=== PATIENT | female | born 1955 | race Caucasian/White ===

== ENCOUNTER → 2023-07-28 08:05 | Outpatient (REF) | payer OTHER, SELFPAY | LOC: RCS 08:05 | PROVIDERS: ATTENDING PHYSICIAN Nurse Practitioner Adult Health | DX: R00.2 Palpitations (principal); R06.09 Other forms of dyspnea | CPT/HCPCS: 93225; 93226 ==

== ENCOUNTER → 2023-08-13 08:55 | Outpatient (REF) | payer OTHER, SELFPAY | LOC: RCS 08:55 | PROVIDERS: ATTENDING PHYSICIAN Nurse Practitioner Adult Health | DX: R00.2 Palpitations (principal); R06.09 Other forms of dyspnea | CPT/HCPCS: 93306 ==

== ENCOUNTER 2024-05-29 02:35 | Inpatient (IN) | payer OTHER, SELFPAY ==
[2024-05-28 18:10] VITALS: BP 106/80
[2024-05-28 18:54] LABS: Hematocrit 28.5 % (37.0-47.0); Hemoglobin 9.8 g/dL (12.0-16.0); Mean Corp Hgb Conc. 34.4 g/dL (33.0-37.0); Mean Corpuscular Hgb 30.6 pg (27.0-31.0); Mean Corpuscular Volume 89.1 fL (81.0-99.0); Red Cell Dist. Width 14.7 % (11.5-14.5); White Blood Cell Count 8.9 10^3/uL (4.8-10.8)
[2024-05-28 19:03] LABS: COVID-19 Antigen Negative (Negative)
[2024-05-28 19:19] LABS: Mean Platelet Volume 10.9 fL (7.4-10.4); Platelet Count 65 10^3/uL (130-400)
[2024-05-28 19:43] LABS: ALT (SGPT) 28 U/L (0-35); AST (SGOT) 28 U/L (14-36); Albumin 3.9 g/dl (3.5-5.0); Alkaline Phosphatase 393 U/L (38-126); Blood Urea Nitrogen 31 mg/dl (7-17); Chloride 102 mmol/L (98-107); Glucose 128 mg/dl (70-99); Potassium 3.6 mmol/L (3.5-5.1); Sodium 133 mmol/L (135-145); Total Bilirubin 2.8 mg/dl (0.2-1.3); Total Protein 6.9 g/dl (6.3-8.2)
[2024-05-28 20:02] LABS: Absolute Neutrophils -Man Diff 6.3 10^3/uL (1.4-6.5); Atypical Lymphocytes 2 %; Band Neutrophils 14 % (0-3); Eosinophils 1 % (0-6); Lymphocytes 17 % (20-51); Metamyelocytes 2 % (-); Monocytes 0 % (2-9); Myelocytes 7 % (-); Platelets Checked Yes; Segmented Neutrophils 57 % (42-75)
[2024-05-28 20:03] LABS: Anisocytosis 1+; Microcytosis 1+; Normal RBC Morphology No; Nucleated Red Blood Cells 1 (-)
[2024-05-28 20:04] LABS: Total Cells Counted 100
[2024-05-28 20:24] VITALS: BMI 34.5
--- NOTE | 2024-05-28 20:30 | ED.GENMED ---
History of Present Illness
General
Chief Complaint: Cold/Flu/URI Symptoms
Source: patient
Exam Limitations: none
Time Seen by Provider: 05/28/24 20:09
Nursing documentation reviewed up to this point in time: agreed with
History of Present Illness
History of Present Illness:
Patient is a 68-year-old female with past medical history of fibromyalgia partial small bowel obstruction hypothyroidism Lupus who presents to the ER for evaluation. Patient started with vomiting on Tuesday, 5 days ago and vomited multiple times
on Tuesday. Since then she has not vomited. She however has had continued intermittent fevers. for the past several days patient has felt just nauseous and has been drinking fluids but then today started with diarrhea and also had a
temperature again of 103.6. She reports that she had several episodes of diarrhea yesterday into today and had some blood in the diarrhea which has improved.
Past History
Past History
ED Past Medical History: Fibromyalgia, Hypothyroidism, Other (Degenerative joint disease, osteoarthritis,, interstitial lung disease, sweet syndrome, migraines, Bowel obstruction,) and Other (Lupus/Sweet's syndrome)
ED Past Surgical History: Appendectomy, Cholecystectomy, Gynecological (Hysterectomy), Orthopedic and Other (Hysterectomy, right knee replacement )
Social History
Tobacco: Former smoker
Alcohol: None
Drug: None
Personal:
Living: with family
Family History
Family History: Negative Diabetes, Hypertension, Early CAD, Asthma or Cancer
Review of Systems
Review of Systems
Allergies reviewed?: Yes
All Other Systems: ROS reviewed and negative except as documented in HPI and ROS
Constitutional: Reports fever
EENT: Reports no symptoms
Respiratory: Reports no symptoms
Cardiac: Reports no symptoms
ABD/GI: Reports nausea, vomiting, diarrhea, bloody stools ((bright red blood in diarrhea) ) and other
Musculoskeletal: Reports no symptoms
Skin: Reports no symptoms
Neurological: Reports no symptoms
Psychiatric: Reports no symptoms
Phy Exam
General Physical Exam
General Presentation: no apparent distress
General age: appears stated age
General Skin: warm and dry
General Habitus: normal
General Mental: alert
General Hydration: appears well hydrated
Pulmonary Exam
Pulmonary Exam: lungs clear and no respiratory distress
Gastrointestinal Exam
Gastrointestinal Exam: soft and other (+ left sided abd tenderness )
Neurological Exam
Neurological Exam: alert and oriented x3
Musculoskeletal Exam
Musculoskeletal Exam: full ROM
Skin Exam
Skin Exam: normal color and warm/dry
Psychiatric Exam
Psychiatric Exam: normal mood/affect
Course
Orders/Labs/Results
Orders:
Orders
05/28/24 18:40
COVID-19 Antigen Urgent
Source: Nasal Swab
Complete Blood Count/With Diff Urgent
Comprehensive Metabolic Panel Urgent
Lipase Urgent
Comment: ADD ON
Manual Differential Urgent
Influenza A+B Rapid Molecular Urgent
TOYIN Source: Nasal Swab
Specimen Description:
05/28/24 20:41
IV Insert/Care/Rem.- Treatment PRN
0.9% Sodium Chloride 1000 ml [Nss] 1,000 ml IV BOLUS
Ondansetron Injectable [Zofran] 4 mg IV NOW STA
05/28/24 22:43
CT Abd/pel Without Iv Or Oral Urgent
Comment:
Reason For Exam: vomiting/diarrhea/fevers
05/29/24 00:17
Azithromycin 500 mg/250 ml [Zithromax Infusion] 500 mg in 250 ml IV NOW
CefTRIAXone [Rocephin] 1,000 mg IV NOW STA
05/29/24 00:46
Sterile Water [Sterile Water For Injection] 10 ml .ROUTE .STK-MED ONE
05/29/24 02:02
Ondansetron Injectable [Zofran] 4 mg IV NOW STA
Oxycodone [Roxicodone] 10 mg PO NOW STA
Oxygen Therapy [O2 Therapy] [RESP] Routine
Nasal Cannula Liter Flow: 2 LPM
Titrate/Wean O2 to maintain O2 sat greater than (%): 95
05/29/24 02:23
Admit/Transfer Patient As Directed
Co-Sign Provider:
Level of Care: Inpatient admission
Assign to:: Medical/Surgical
Physician / Group: hospitalist
Diagnosis: pneumonia
Reason for Hospitalization: pneumonia
Expected length of stay greater than two midnights?: Yes
ELOS- Estimated Length of Stay in days: 2
I certify the patient meets the requirements for IP care: Yes
PRN Pain Medication Management As Directed
May give lesser potent ordered pain med per pt: Yes
preference::
Protocol:: Medication orders for pain may be administered in a
manner that supports deferring to patient preference
when the pt is:
- Requesting an ordered lesser potent pain medication.
Least to most potent pain medications are defined
as: acetaminophen < NSAID < tramadol < opioids
(morphine, oxycodone, hydromorphone).
- Requesting a lesser dose of the same medication IF
ORDERED.
- Requesting a less intrusive route of administration
if both routes are prescribed by the provider (PO <
IV).
05/29/24 02:24
Code Status As Directed
Resuscitation Status: Full Code
05/29/24 02:29
Add On- LAB Stat
Tests Added?: lipase
05/29/24 02:30
CR Chest - 2 Views Urgent
Comment:
Reason For Exam: shortness of breath
05/29/24 03:00
Flush (0.9% Sodium Chloride) [Flush (Nss)] See Dose Instructions IV PER PROTOCOL
05/29/24 03:31
0.9% Sodium Chloride 1000 ml [Nss] 1,000 ml IV 100 mls/hr
Acetaminophen [Tylenol] 650 mg PO Q4HPRN PRN
Bisacodyl [Dulcolax] 10 mg RECTAL [id number] PRN
Docusate W/Senna [Senokot-S] 1 tablet PO BIDPRN PRN
HYDROmorphone [Dilaudid] 0.5 mg IV Q4HPRN PRN
Ipratropium/Albuterol Sulfate [Duoneb] 3 ml INH R Q4HPRN PRN
Ondansetron Injectable [Zofran] 4 mg IV Q6HPRN PRN
Polyethylene Glycol Powder [Miralax] 17 grams PO DAILYPRN PRN
05/29/24 03:31
Activity As Directed
Activity Level: With Assistance
Vital Signs As Directed
Frequency: Per unit guidelines
Pulse Ox/spot Check [RESP] Routine
Quantity: 1
DX Deep Vein Thrombosis Video Routine
05/29/24 05:19
RITA, IgG Reflex to HEp-2 [S] IN AM
Basic Metabolic Panel IN AM
Complete Blood Count/No Diff IN AM
ESR [Erythrocyte Sed Rate] IN AM
Folate IN AM
GGT [GGTP] IN AM
LFT [Rktfp-Sdtt-Wutxuwt] IN AM
Lactic Acid IN AM
Magnesium IN AM
NT-proBNP IN AM
Procalcitonin IN AM
PCT Algorithmm Indication: Respiratory
Venous Blood Gas IN AM
%Oxygen/Room Air: 28
Vitamin B12 IN AM
05/29/24 05:44
Legionella Urinary Antigen Routine
TOYIN Source: Urine
Specimen Description:
Strep pneumoniae Antigen Routine
TOYIN Source: Urine
Specimen Description:
05/29/24 Breakfast
Clear Liquid
At Your Request: Full Participation
Levothyroxine [Synthroid] 75 mcg PO DAILY @ 0600
05/29/24 08:00
Estradiol [Estrace] 1 mg PO DAILY
Multivitamin [Theragran] 1 tablet PO DAILY
Oxycodone [Roxicodone] 10 mg PO Q6H
mycophenolate mofetil 500 mg PO TID
05/29/24 18:00
Enoxaparin Sodium [Lovenox] 40 mg SC QPM
05/30/24 00:00
Azithromycin 500 mg/250 ml [Zithromax Infusion] 500 mg in 250 ml IV Q24H
CefTRIAXone [Rocephin] 1,000 mg IV Q24H
Abnormal Lab Results
05/28/24
18:40
RBC 3.20 L 10^6/uL
(4.20-5.40)
Hgb 9.8 L g/dL
(12.0-16.0)
Hct 28.5 L %
(37.0-47.0)
RDW 14.7 H %
(11.5-14.5)
Plt Count 65 L 10^3/uL
(130-400)
MPV 10.9 H fL
(7.4-10.4)
Band Neutrophils 14 H %
(0-3)
Lymphocytes (Manual) 17 L %
(20-51)
Monocytes (Manual) 0 L %
(2-9)
Sodium 133 L mmol/L
(135-145)
Carbon Dioxide 13 L* mmol/L
(22-30)
BUN 31 H mg/dl
(7-17)
Creatinine 1.2 H mg/dL
(0.6-1.0)
Glucose 128 H mg/dl
(70-99)
Total Bilirubin 2.8 H mg/dl
(0.2-1.3)
Alkaline Phosphatase 393 H U/L
(38-126)
Lipase 19 L U/L
(23-300)
05/28/24 18:40
05/28/24 18:40
Vital Signs
Initial and Last Documented VS:
Initial Vital Signs
Temp Pulse Resp BP Pulse Ox
98.9 F 132 20 106/80 96
05/28/24 18:10 05/28/24 18:10 05/28/24 18:10 05/28/24 18:10 05/28/24 18:10
Last Documented Vital Signs
Temp Pulse Resp BP Pulse Ox
99.1 F 117 34 123/67 95
05/30/24 23:19 05/30/24 23:30 05/30/24 23:30 05/30/24 22:00 05/30/24 23:30
MDM/Problems Addressed
MDM/Problems Addressed:
As documented patient is a 68-year-old female who started on Tuesday 5 days ago with vomiting has intermittent fever since yesterday started with some diarrhea and some mild blood in her stool at got better today.
Patient presents to the ER complaining of feeling fever chills intermittent nausea just not feeling well.
She denies any obvious cough. Her white count is normal her hemoglobin is 9.8.
She has a BUN of 31, creatinine 1.2 and she is mildly dry on exam. Her bilirubin is 2.8 however AST ALT are normal her alk phos is elevated.
With complaints of vague abdominal pain and diarrhea CAT scan was done which shows mild colitis also what looks like multifocal pneumonia. Patient had very minimal cough but does now complain of some pain with deep inspiration
Patient was given fluids here mildly tachycardic will require admission for further evaluation.
*Critical Care Note
Total Time (30-74mins, 75-104mins- exclusive of procedures): Not Applicable
ED Attending Note
-
Portions of this chart may have been created with voice recognition software.� Occasional wrong word or��sound alike� substitutions may have occurred due to the inherent limitations of voice recognition software.
Discharge Plan
Departure
Patient Disposition: Admit
Date of Disposition: 05/29/24
Time of Disposition: 00:29
Admit to: Med/Surg
Admit to doctor: hospitalist
Presentation/result/management discussed w/ accepting MD/DO: Hospitalist
Patient with high blood pressure during this ER visit?: No
Covid-19: Not Applicable
Discharge Problem:
Colitis, Pneumonia, Acute renal insufficiency, Thrombocytopenia
Interventions
Interventions:
*Risk Screen - Suicide Last Done: 05/28/24 20:28
*General Assessment Last Done: 05/28/24 20:28
*Neglect/Abuse Screening Last Done: 05/28/24 20:28
ED- Fall Risk Assessment Last Done: 05/28/24 20:35
*ED COVID-19 Vaccine History Last Done: 05/29/24 07:32
*Nursing Disposition Last Done: 05/29/24 17:35
ED- Pulmonary Assessment Last Done: 05/28/24 20:35
Discharge Date and Time
Discharge Date/Time: 05/29/24 17:35
[2024-05-28 20:33] VITALS: BP 115/67
[2024-05-28] MEDS: NSS 1000 IV (21:25)
[2024-05-28] MEDS: ZOFRAN 4 MG IV (21:25)
[2024-05-28 22:40] LABS: Carbon Dioxide 13 mmol/L (22-30)
[2024-05-29] VITALS (8 sets, daily range): BP systolic 111–146; BP diastolic 61–100; BMI 34.6; BMI 32.5
[2024-05-29] MEDS: ZITHROMAX INFUSION 250 IV (01:07)
[2024-05-29] MEDS: ROCEPHIN 1000 MG IV (01:07)
--- NOTE | 2024-05-29 02:04 | HPS.HSE ---
Family Physician
-
Family Physician: NATHAN Spear
Chief Complaint
-
Patient with pleuritic chest discomfort, shortness of breath and nausea
History of Present Illness
This is a 68-year-old female with past medical history significant for lupus, prior ILD, Sweet syndrome, fibromyalgia, hypothyroid presenting to the emergency department with 5 days of symptoms now with nausea and shortness of breath.
Patient reported acute onset of vomiting on Tuesday morning 5 days ago. She reported mild epigastric discomfort then nonbloody nonbilious emesis x 4. After the emesis resolved she had persistent nausea and she has continued to have nausea
since then. She reports 1 episode of loose stools which was also nonbloody. She states that she has not had loose stools today. She denies any sick contact. Reports family members had no similar symptoms. She has had a temperature and reached
stated that she had a Tmax of 103.6 at home.
She reports chest pain with deep inspiration with associated shortness of breath. She says she has had a prior DVT in the remote past but denies any recent episodes of ankle swelling or calf tenderness. She has no recent travels and denies any
known sick contacts.
Patient on CellCept for lupus. She has been treated with Benlysta in the past but not currently. She reports immunizations up-to-date.
In the emergency department she was afebrile with a Tmax of 99.2, she was satting 94% on room air. She was tachypneic to the high 20s. She was tachycardic to 125. Blood pressure was 129/78. Influenza was negative, COVID test was negative. CBC
shows a white count of 8.9 with 14% bands, hemoglobin was 9.8 and platelet count was low at 65. Sodium 123 potassium 3.6 bicarb was 13 with an anion gap of 18. BUN was 31 and a creatinine of 1.2. Glucose 128. She had slight elevation in total
bilirubin to 2.8 and alk phos of 393. AST and ALT were normal.
A CT of the abdomen pelvis showed small patchy consolidation within the bilateral lower lobes likely reactive multifocal infection. She had trace bilateral effusions at lung bases with mild associated bilateral lower lobe atelectasis. Trace
pericardial fluid. She is status postcholecystectomy no biliary ductal dilation. There was no hydronephrosis or obstructing urinary calculi with normal bladder. The sigmoid colon appears to have some minimal adjacent fat stranding concerning for
colitis. There was liquid content present throughout the colon suggestive of diarrheal gastroenteritis.
Medical History
Past Medical History
Past Medical History: Reports Hypothyroidism and Other (Lupus, fibromyalgia, interstitial lung disease (patient was at 1 point on home oxygen but now off), Sweet syndrome)
Past Surgical History: Reports Cholecystectomy, Gynocological (Total abdominal hysterectomy with bilateral salpingo-oophorectomy), Orthopedic (Knee replacement) and Tonsilectomy
Social History
Tobacco: Former Smoker
Alcohol: None
Drug: None
Personal:
Living: With Family
Employment: Retired
Family History
Family History: Not pertinent
Allergies / Home Medications
Allergies reflects when Allergies were last updated in [email or web address].
Home Medications with original date entered in [email or web address]
Allergy/Medication List:
Allergies
Allergy/AdvReac Type Severity Reaction Status Date / Time
adhesive Allergy Severe Hives Verified 11/28/19 06:32
aspirin Allergy Anaphylaxis Verified 11/28/19 06:32
azathioprine [From Imuran] Allergy Nausea / Verified 11/28/19 06:32
Vomiting
doxycycline Allergy Nausea / Verified 11/28/19 06:32
Vomiting
iodine [Iodine] Allergy Anaphylaxis Verified 11/28/19 06:32
NSAIDS (Non-Steroidal Allergy Anaphylaxis Verified 11/28/19 06:32
Anti-Inflamma
prochlorperazine Allergy gnashing Verified 11/28/19 06:32
teeth
bee stings Allergy Anaphylaxis Uncoded 11/28/19 06:32
Home Medications
levothyroxine 75 mcg tablet 75 mcg PO DAILY Thyroid 08/21/09
estradiol 1 mg tablet 1 mg PO DAILY Hormonal agent 11/15/11
cyclobenzaprine 10 mg tablet 10 mg PO HS PRN tightness 11/28/19
[place] 3 Fish Oil 1,000 mg PO DAILY 05/28/24
cholecalciferol (vitamin D3) 50 mcg (2,000 unit) capsule (Vitamin D3) 50 mcg PO DAILY 05/28/24
multivitamin 1 tab PO DAILY 05/28/24
mycophenolate mofetil 500 mg tablet (CellCept) 1,500 mg PO DAILY 05/28/24
oxycodone-acetaminophen 5 mg-325 mg tablet 2 tab PO Q6 05/28/24
Review of Systems
-
History Source: Patient
Constitutional: Reports Fever
EENT: Reports No Symptoms
Respiratory: Reports Trouble Breathing
Cardiac: Reports Chest Pain
Abdomen/GI: Reports Abdominal Pain, Nausea, Vomiting and Diarrhea
: Reports No Symptoms
Musculoskeletal: Reports No Symptoms
Skin: Reports No Symptoms
Neurological: Reports No Symptoms
Endocrine: Reports No Symptoms
Hematologic/Lymphatic: Reports No Symptoms
Psych: Reports No Symptoms
Physical Exam
Vital Signs
Vital Signs
Temp Pulse Resp BP Pulse Ox
99.2 F 112 24 129/78 94
05/29/24 00:07 05/29/24 01:15 05/29/24 01:04 05/29/24 00:18 05/29/24 00:45
Physical Exam
General: Well Developed, Well Nourished and Appears in Distress
HEENT: NormoCephalic, Anicteric, Atraumatic and PERRLA
Respiratory: Rales (Faint dry rales at the bases bilaterally. Rapid but shallow breathing); No Accessory Resp Muscle Use
Cardiac: S1/S2 and Tachycardia
Breast: Deferred by me
GI: Soft, Non Tender, Non Distended and Normal Bowel Sounds
Rectal: Deferred by Provider
Genito-urinary: Deferred by me
Musculoskeletal: No Clubbing, No Cyanosis and No Edema
Skin: Warm and Dry; No Rash
Neuro: AO x 3 and Nonfocal/grossly intact
Hematologic/Lymphatic: No Lymphadenopathy
Psych: Calm
Laboratory Results
-
05/28/24 18:40
05/28/24 18:40
Laboratory Results
Total Bilirubin 2.8 mg/dl (0.2-1.3) H 05/28/24 18:40
AST 28 U/L (14-36) 05/28/24 18:40
ALT 28 U/L (0-35) 05/28/24 18:40
Alkaline Phosphatase 393 U/L (38-126) H 05/28/24 18:40
Data Reviewed
-
CT Scan: Report Reviewed by me
Lab Data: Labs Reviewed by me
Old Records: Reviewed
Impression/Plan
-
IMPRESSION:
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
breath with mild O2 requirement is satting 94% on room air, GHAZAL has no cough but reports pleuritic chest pain and some difficulty breathing.
CT scan of the abdomen pelvis revealed patchy consolidation within the bilateral lower lobes related to multifocal infection unlikely, trace bilateral effusions also noted. The abdomen had no significant findings but was consistent with
gastroenteritis. Labs are notable for bandemia to 14%, bicarb of 13 with combination anion gap and non-anion gap metabolic acidosis and mild DAYRON. There is elevated total bilirubin and alk phos with normal LFTs.
PLAN:
1. Shortness of breath -shortness of breath, pleuritic chest discomfort, bilateral lower lobe patchy opacities all consistent with community-acquired pneumonia. Patient however does have interstitial lung disease and this may be elevation of
flareup of interstitial lung disease. Given symptoms occurred after onset of gastroenteritis this could be Legionella versus aspiration as well.
- admit to med/surg for now
- oxygen to keep sat > 94% and for comfort
- check procal, legionella urinary ag and streptococcal ag
- check d-dimer and bnp given bilateral effusions
- continue azithromycin with ceftriaxone for now
- check chest xray
- blood cultures if spike
- pending xray, blood gas and clinical status, may consult pulm
2. Gastroenteritis - Episode of vomiting then diarrhea, now with nausea
- supportive measures with antiemetics
- pain control
- IV fluids
3. Abnormal liver enzymes - Elevated tbili and alkpho with normal transaminases suggestive of cholestatic pattern. s/p seven, no biliary dilation.
- check ggt
- trend lfts for now
- legionella ag as abov e
4. Lupus - No skin rash
- check esr, thee
- urine sediments and protein
- continue cellcept 500 q 8 per patient home regimen
5. Thrombocytopenia - Isolated thrombocytopenia since 2020. Possibly due to acute viral infection
- check b12/folate
- trend platelet
- if further drop consult hematology
6. Low bicarb - Suspect anion gap + non gap acidosis but cannot rule out a resp alk component
- IV fluids with NS for now
- check lactate and vbg
- supplemental oxygen
DVT PPX - lovenox sq
Code status - Full Code
[2024-05-29] MEDS: ZOFRAN 4 MG IV ×2 (02:09→12:06)
[2024-05-29] MEDS: ROXICODONE 10 MG PO ×4 (02:14→20:13)
[2024-05-29 03:19] LABS: Lipase 19 U/L (23-300)
[2024-05-29] MEDS: NSS 1000 IV ×2 (03:58→14:38)
[2024-05-29 05:32] LABS: Venous Blood Gas B.E. -3.2 mmol/L (-4 to +4); Venous Blood Gas HCO3 20.2 mmol/L (22-27); Venous Blood Gas O2 Sat % 99.7 %; Venous Blood Gas pCO2 29 mmHg (35-48); Venous Blood Gas pH 7.45 (7.32-7.43); Venous Blood Gas pO2 171 mmHg (30-50)
[2024-05-29 06:05] LABS: Lactic Acid 1.5 mmol/L (0.7-2.0)
[2024-05-29 06:11] LABS: Hematocrit 24.7 % (37.0-47.0); Hemoglobin 8.2 g/dL (12.0-16.0); Mean Corp Hgb Conc. 33.2 g/dL (33.0-37.0); Mean Corpuscular Hgb 30.4 pg (27.0-31.0); Mean Corpuscular Volume 91.5 fL (81.0-99.0); Mean Platelet Volume 10.8 fL (7.4-10.4); Platelet Count 60 10^3/uL (130-400); Red Cell Dist. Width 15.1 % (11.5-14.5); White Blood Cell Count 9.7 10^3/uL (4.8-10.8)
[2024-05-29 06:12] LABS: NT-proBNP 1660 pg/ml
[2024-05-29 06:13] LABS: ALT (SGPT) 21 U/L (0-35); AST (SGOT) 20 U/L (14-36); Albumin 2.9 g/dl (3.5-5.0); Alkaline Phosphatase 314 U/L (38-126); Blood Urea Nitrogen 29 mg/dl (7-17); Calcium 7.9 mg/dl (8.4-10.2); Carbon Dioxide 19 mmol/L (22-30); Chloride 105 mmol/L (98-107); Direct Bilirubin 1.1 mg/dl (0.0-0.4); Estimated Creatinine Clearance 51 ml/min; GGTP 518 U/L (12-43); Glucose 129 mg/dl (70-99); Magnesium 2.2 mg/dl (1.6-2.3); Potassium 3.5 mmol/L (3.5-5.1); Sodium 136 mmol/L (135-145); Total Bilirubin 1.9 mg/dl (0.2-1.3); Total Protein 5.5 g/dl (6.3-8.2); eGFR > 60.00
[2024-05-29] MEDS: SYNTHROID 75 MCG PO (06:14)
[2024-05-29 06:55] LABS: Procalcitonin 16.94 ng/ml (0.0-0.25)
[2024-05-29 07:09] LABS: Folate 17.7 ng/ml (2.76-20); Vitamin B12 > 1000 pg/ml (239-931)
[2024-05-29 07:19] LABS: Erythrocyte Sed Rate 115 mm/hour (0-20)
[2024-05-29] MEDS: TYLENOL 650 MG PO ×3 (07:26→20:13)
[2024-05-29] MEDS: THERAGRAN 1 TABLET PO (07:27)
[2024-05-29] MEDS: CELLCEPT 500 MG PO ×3 (09:15→21:55)
[2024-05-29] MEDS: ESTRACE 1 MG PO (09:15)
[2024-05-29] MEDS: DILAUDID 0.5 MG IV (12:11)
--- NOTE | 2024-05-29 12:16 | W.PN.UPDATE ---
Update Note
Progress Note Update
Seen and admitted by Dr. Gonzalez this morning.
Patient presents with GI symptoms of nausea multiple episodes of vomiting, abdominal pain and few small loose stool since Tuesday. CT of the abdomen pelvis shows mild bowel wall thickening and adjacent mesenteric inflammatory changes in the
rectosigmoid area consistent with colitis. She says she had her routine colonoscopy many years ago. No prior history of colitis. She is immune compromised with the use of CellCept but no prior opportunistic infections.
Today she continues to be nauseous and complains of abdominal pain points to more epigastric area. She feels abdomen is distended.
Abdomen is mildly distended, soft with decreased bowel movements. She is tender in the epigastric area but also in other quadrants.
Continue with antibiotics for colitis-ceftriaxone. Add Flagyl. Check stool for WBC, C. difficile and culture.
She also felt associate shortness of breath. Has some cough. Denies aspiration during her emesis episodes. 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 Denies much of cough.
Chest is clear without wheeze or crackles. Abdomen pelvis CT pics of the lower bases to have patchy infiltrates and also more nodular infiltrates. Dedicated chest x-ray pending.
Continue ceftriaxone and Zithromax for possible pneumonia. If no improvement consider chest CT�ID consult.
She meets the criteria for sepsis. Lactic acid normal. Blood pressure stable.
Discussed with RN.
[2024-05-29] MEDS: FLAGYL 500 MG 100 IV ×2 (14:38→21:56)
[2024-05-29] MEDS: LOVENOX 40 MG SC (17:44)
--- NOTE | 2024-05-29 18:32 | PTCARENOTE ---
Received pt from ED in bed. AAO x3 able to make needs known. Pt on 2L O2. Continues on Enhanced precautions, no BM since being on unit. Call vang within reach.
[2024-05-29] MEDS: TYLENOL 325 MG PO (22:17)
[2024-05-30] VITALS (8 sets, daily range): BP systolic 112–166; BP diastolic 57–89; BMI 34.8
[2024-05-30] MEDS: NSS 1000 IV (00:31)
[2024-05-30] MEDS: ROCEPHIN 1000 MG IV (00:35)
[2024-05-30] MEDS: ZITHROMAX INFUSION 250 IV (00:35)
[2024-05-30] MEDS: STERILE WATER FOR INJECTION 10 ML IV ×2 (00:36→17:25)
[2024-05-30] MEDS: ROXICODONE PO ×2 (03:12→23:49)
--- NOTE | 2024-05-30 03:14 | DOWNTIME ---
There was a [employer] Client Copy Writer Downtime on 05/30/2024 from 0100 to 05/30/2023 at 0235 . Downtime documentation of patient's care, including medication administrations, has been reconciled in the electronic record per guidelines. Refer to the
patient's paper chart under the miscellaneous tab to see printed paper medication records and downtime forms.
--- NOTE | 2024-05-30 05:34 | PTCARENOTE ---
At 20:05 patient had a fever of 102.3 F and heart rate of 139. This RN administered PRN Tylenol. At 21:28 she had a fever of 101.4 F and HR of 127. AIRCONDITIONING ENGINEER Bette Savage notified. This RN administered another Tylenol, removed patient's socks, and left
her with one sheet. Temp decreased to 98 F. Will continue to monitor.
--- NOTE | 2024-05-30 05:42 | PTCARENOTE ---
Patient complaining of shortness of breath. Auscultated some secretions in her upper lobes, patient states she 'cannot clear with coughing.' Pulse ox was 96% APPARATUS ENGINEERING TECHNOLOGIST Bette Savage notified. Patient instructed to deep breathe and cough, Acapella given
and education provided by this RN. Will continue to monitor.
[2024-05-30] MEDS: SYNTHROID 75 MCG PO (06:07)
[2024-05-30] MEDS: FLAGYL 500 MG 100 IV ×2 (06:08→15:32)
[2024-05-30 07:52] LABS: Hematocrit 24.5 % (37.0-47.0); Hemoglobin 8.3 g/dL (12.0-16.0); Mean Corp Hgb Conc. 33.9 g/dL (33.0-37.0); Mean Corpuscular Hgb 30.3 pg (27.0-31.0); Mean Corpuscular Volume 89.4 fL (81.0-99.0); Red Blood Cell Count 2.74 10^6/uL (4.20-5.40); Red Cell Dist. Width 15.2 % (11.5-14.5); White Blood Cell Count 9.7 10^3/uL (4.8-10.8)
[2024-05-30 08:16] LABS: ALT (SGPT) 21 U/L (0-35); AST (SGOT) 30 U/L (14-36); Albumin 2.8 g/dl (3.5-5.0); Alkaline Phosphatase 374 U/L (38-126); Blood Urea Nitrogen 18 mg/dl (7-17); Calcium 8.3 mg/dl (8.4-10.2); Carbon Dioxide 15 mmol/L (22-30); Chloride 107 mmol/L (98-107); Estimated Creatinine Clearance 71 ml/min; Glucose 122 mg/dl (70-99); Potassium 3.4 mmol/L (3.5-5.1); Sodium 137 mmol/L (135-145); Total Bilirubin 4.4 mg/dl (0.2-1.3); Total Protein 5.5 g/dl (6.3-8.2); eGFR > 60.00
[2024-05-30 08:52] LABS: Platelet Count 60 10^3/uL (130-400)
[2024-05-30] MEDS: ROXICODONE 10 MG PO ×2 (09:12→15:32)
[2024-05-30] MEDS: THERAGRAN 1 TABLET PO (09:12)
[2024-05-30] MEDS: CELLCEPT 500 MG PO (09:12)
[2024-05-30] MEDS: ESTRACE 1 MG PO (09:12)
[2024-05-30] MEDS: MUCINEX 600 MG PO (09:12)
[2024-05-30] MEDS: TYLENOL 650 MG PO (09:20)
[2024-05-30] MEDS: CARDIZEM 30 MG PO (10:12)
[2024-05-30] MEDS: NSS IV (11:33)
--- NOTE | 2024-05-30 11:33 | CM ---
Patient seen at bedside with patient in [facility]. Patient states they live in a one story home with a basement. Patient has no DME at home and has not needed home O2 previously. Patient PCP is Dr. Edmondson and she uses the [facility]
[place] [facility]. Patient plan uncertain at this time. CM will continue to follow for discharge planning needs.
Plan; home with VN vs SNF pending medical treatment plan and PT/OT recommendations.
--- NOTE | 2024-05-30 13:42 | W.PN.HOSP.TC ---
Today's Communication/Plan
-
Urgent chest x-ray
Transfer to telemetry
Consult ID
Assessment / Plan
Assessment / Plan
IMPRESSION:
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
breath with mild O2 requirement is satting 94% on room air, GHAZAL has no cough but reports pleuritic chest pain and some difficulty breathing.
CT scan of the abdomen pelvis revealed patchy consolidation within the bilateral lower lobes related to multifocal infection unlikely, trace bilateral effusions also noted. The abdomen had no significant findings but was consistent with
gastroenteritis. Labs are notable for bandemia to 14%, bicarb of 13 with combination anion gap and non-anion gap metabolic acidosis and mild DAYRON. There is elevated total bilirubin and alk phos with normal LFTs.
PLAN:
#Sepsis-suspected GI source, rule out pulmonary
Improved fever curve. Blood pressure stable so far. Lactic acid was normal on admission.
Continue with treatment of infectious source and supportive treatments.
#Acute colitis-patient presented with GI symptoms including nausea abdominal pain and not much diarrhea. She has CT evidence of colitis involving the rectosigmoid colon. A complication of abscess or perforation. Patient is immunosuppressed. C.
difficile is negative so far. Stool culture and WBC are pending. Continue with ceftriaxone and Flagyl.
#Shortness of breath and associated acute hypoxic respiratory insufficiency.
- She is stable on 2 L of oxygen.
-Today she is more crackly and now actively bronchospastic
-SCDs chest x-ray was showing no acute cardiopulmonary disease. Chest CT picked up bilateral patchy GGO in the lung bases.
-Patient has a history of ILD
-Today's change in respiratory status is concerning for either fluid buildup or developing ARDS.
-Hold further fluids, to obtain a chest x-ray. Repeat BNP. Check troponins.
#Sinus tachycardia-follow on telemetry
#Abnormal liver enzymes - Elevated tbili and alkpho with normal transaminases suggestive of cholestatic pattern. s/p seven, no biliary dilation.
- ggt is up.
- trend lfts for now
- legionella ag negative.
-Check ultrasound of the abdomen to look at the biliary system.
#Lupus - No skin rash
-Hold CellCept
#Thrombocytopenia - Isolated thrombocytopenia since 2020. Possibly due to acute viral infection
- trend platelet
- if further drop consult hematology
Hypokalemia-replete
#DAYRON suspect prerenal. Improved creatinine from 1.2-0.7 send IV fluid support.
#Metabolic acidosis-
-Elevated anion gap on admission noted may be related to DAYRON.
-Improved anion gap and bicarb.
-ABG showed compensated metabolic alkalosis with pH of 7.45.
-Continue to follow
Discussed with family at bedside
Discussed with RN
DVT PPX - lovenox sq
Code status - Full Code
Total time spent on today's encounter was 52 minutes which included time spent in counseling the patient/family regarding diagnosis and treatment plan as listed above, goals of care, and symptom management. Case was discussed with nursing staff,
specialists, and care coordinators/case management. All labs and imaging personally reviewed by me. Remainder the time spent in detailed review of previous records, lab data, imaging, and other medical provider documentation.
Anticipated Discharge: > 48 hours
Subjective/Interval History
-
Date of Service: May 30, 2024
Today patient states her abdomen abdomen is more supple and less painful. Had a small amount of bowel movement. No vomiting. Denies particularly nauseous but appetite is poor. Taking some clear liquids.
Her fever curve is improved today.
She has had a cough. She feels congested in her chest. Audible sounds heard. Denies much shortness of breath at rest. She is only requiring 2 L of oxygen.
Denies any chest pain.
Objective Data
-
Labs:
Laboratory Results
05/30/24
07:17
WBC 9.7
Hgb 8.3 L
Hct 24.5 L
Plt Count 60 L
Sodium 137
Potassium 3.4 L
Chloride 107
Carbon Dioxide 15 L
BUN 18 H
Creatinine 0.7
Glucose 122 H
Calcium 8.3 L
Total Bilirubin 4.4 H D
AST 30
ALT 21
Alkaline Phosphatase 374 H
Vital Signs:
Vital Signs
Temp Pulse Resp BP Pulse Ox
98.5 F 117 22 141/71 94
05/30/24 11:24 05/30/24 11:24 05/30/24 11:24 05/30/24 07:45 05/30/24 11:24
I&O
05/29/24 05/30/24 05/31/24
06:59 06:59 06:59
Intake Total 480 / 480
Balance 480 / 480
Review of Systems
-
Constitutional: Reports Fever; Denies Chills
EENT: Denies Sore Throat
Respiratory: Reports Cough and Trouble Breathing
Cardiac: Denies Chest Pain
Neuro: Denies Dizzy
Physical Exam
-
General: No Apparent Distress
HEENT: Moist Mucous Membranes
Respiratory: Wheezes, Crackles, Non Labored Respirations and Other (Audible breath sounds); Negative Accessory Resp Muscle Use
Cardiac: Regular Rhythm, S1/S2 and Tachycardic; Negative JVD
GI: Soft, Nondistended, Normal Bowel Sounds and Tender ( four-quadrant but no rebound guarding or rigidity.)
Musculoskeletal: No Edema
Neuro: AO x 3
Psych: Calm; Negative Confused
Data Reviewed
-
Labs: Labs Reviewed by me
[2024-05-30 14:30] LABS: Lipase 139 U/L (23-300)
--- NOTE | 2024-05-30 15:04 | CON.ID ---
Consultation
-
Date/Time Consultation Requested: May 30, 2024 1333
Date/Time Consultation Performed: May 30, 2024 1500
Requesting Provider: Dr. Mane Panda
Performing Provider: Dr. Aimee Moreno
Reason for Consultation: Severe sepsis
Chief Complaint / Past History
Chief Complaint
SOB, pleuritic chest pain
History of Present Illness
68-year-old female with history of SLE on mycophenolate, history of interstitial lung disease, Sweet syndrome, SBO who presented to the hospital on May 28 due to shortness of breath and persistent nausea. She had episode of vomiting 5 days
prior to presentation. Had loose bowel movements. She did not develop persistent nausea. She also developed shortness of breath, chest pain with deep inspiration, no cough. Temperature at home over 103 and therefore she came to the hospital.
Temperature was 102.3 on May 29. White count normal with 14% bands. Thrombocytopenic. COVID-negative. Influenza negative. Initial chest x-ray negative. CAT scan of the abdomen pelvis showed mild bowel wall thickening at the sigmoid and
rectum. Patient is on ceftriaxone, azithromycin, and metronidazole. However her respiratory status worsened today. Patient reports now coughing with minimal sputum. She is very short of breath. She also sounds congested. She reports positive
rhinorrhea. Positive headache from the coughing. Had sore throat now resolved. Had abdominal pain. Diarrhea better. No urine symptoms. No aspiration history. No travel history. She lives with her who is well.
Past History
Additional Past Medical History:
SLE on mycophenolate
History of interstitial lung disease
History of Sweet syndrome
Hypothyroidism
Fibromyalgia
hx SBO x2
Cholecystectomy
HODAN/BSO
Right Total knee replacement
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
implantation and removal of intrathecal pain pump of the right transverse paramedian incision)
Allergy History:
adhesive Allergy (Severe, Verified 11/28/19 06:32)
Hives
aspirin Allergy (Verified 11/28/19 06:32)
Anaphylaxis
azathioprine [From Imuran] Allergy (Verified 11/28/19 06:32)
Nausea / Vomiting
doxycycline Allergy (Verified 11/28/19 06:32)
Nausea / Vomiting
iodine [Iodine] Allergy (Verified 11/28/19 06:32)
Anaphylaxis
NSAIDS (Non-Steroidal Anti-Inflamma Allergy (Verified 11/28/19 06:32)
Anaphylaxis
prochlorperazine Allergy (Verified 11/28/19 06:32)
gnashing teeth
bee stings Allergy (Uncoded 11/28/19 06:32)
Anaphylaxis
Medications Reviewed: Yes
Current Antibiotics:
Ceftriaxone d3
azithromycin d3
metronidazole d2
Social History
Tobacco: Former Smoker
Alcohol: None
Drug: None
Personal:
Living: With Family
Family History
Family History: Not Pertinent
Review of Systems
Review of Systems
General: Fever, Chills and Change in Appetite
HEENT: Sinus Problems
Cardiovascular: Chest Pain (with deep breathing)
Respiratory: Dyspnea, Cough and Sputum Production
Gasteroenterology: Nausea and Diarrhea (resolving); Negative Vomiting
Genital / Urological: Negative Dysuria or Flank Pain
Endocrine: Weakness
Skin / Hair / Nails: Negative Rash
Neurological: Negative Dizziness
All systems: All other systems were reviewed and were negative
Vital Signs
Temp Pulse Resp BP Pulse Ox
98.5 F 117 22 141/71 94
05/30/24 11:24 05/30/24 11:24 05/30/24 11:24 05/30/24 07:45 05/30/24 11:24
Selected Entries
05/29/24
20:05
Temp max 102.3 F H
Physical Exam
Physical Exam
Constitutional: Acutely Ill
Head: Other (No frontal or max or sinus tenderness.)
Eyes: No Conjunctival Hemorrhage and Sclera Anicteric
Oral: No Thrush
Cardiovascular: Regular Rate and S1/S2
Pulmonary: Rales (crackles bilaterally), Rhonchi and Other (labored breathing. + chest congestion.)
Gastrointestinal: Soft, Non Tender, Non Distended and Decreased Bowel Sounds
Genito-Urinary: Negative CVA Tenderness
Extremities: Negative Edema
Neurological: AO x 3; Negative Meningeal Signs
Lab / Diagnostic Study Results
05/30/24 07:17
05/30/24 07:17
Total Counted 100 05/28/24 18:40
Abs Neuts (Manual) 6.3 10^3/uL (1.4-6.5) 05/28/24 18:40
Segmented Neutrophils 57 % (42-75) 05/28/24 18:40
Band Neutrophils 14 % (0-3) H 05/28/24 18:40
Lymphocytes (Manual) 17 % (20-51) L 05/28/24 18:40
Eosinophils (Manual) 1 % (0-6) 05/28/24 18:40
ESR 115 mm/hour (0-20) H 05/29/24 05:19
Lactic Acid 1.5 mmol/L (0.7-2.0) 05/29/24 05:19
Procalcitonin 16.94 ng/ml (0.0-0.25) H* 05/29/24 05:19
Microbiology Results
Micro:
05/29/24 12:59 Blood Culture - Preliminary
Blood/Venous No Growth in 24 hours- Final report to follow
05/29/24 12:59 Blood Culture - Preliminary
Blood/Venous No Growth in 24 hours- Final report to follow
05/29/24 09:32 C. difficile GDH Antigen & Toxins - Final
Feces/Stool Negative for toxigenic C.difficile
05/29/24 09:32 Stool Leukocytes - Pending
Feces/Stool
05/30/24 09:32 Salmonella/Shigella Culture - Pending
Feces/Stool Campylobacter Culture - Pending
Shiga Toxin Test - Pending
05/29/24 05:44 Legionella Urinary Antigen - Final
Urine Negative for Legionella pneumophila Serogroup 1 antigen.
A negative result does not rule out the possiblity of
Legionella infection due to other serogroups or species of
Legionella. Clinical correlation is recommended.
Streptococcus pneumoniae Antigen (M - Final
Negative for Streptococcus pneumoniae antigen.
A negative result does not exclude infection with
Streptococcus pneumoniae. Clinical correlation is
recommended.
05/28/24 18:40 Influenza Types A & B (DARLEEN) - Final
Nasal Swab Negative for Influenza A & B, NAAT
Negative results must be combined with clinical observations
and patient history.
Nucleic Acid Amplification test (NAAT)performed on the
[employer]gle platform.
05/28/24 CT a/p: Mild bowel wall thickening sigmoid , rectum and adjacent mesenteric inflammatory change adjacent to the rectosigmoid colon, consistent with colitis. Colitis is likely infectious or inflammatory. Patchy groundglass opacity at each
lung base. Nodular opacities in each lung base measuring up to 1.1 cm in diameter, as detailed above. Findings may be infectious or related to subsegmental atelectasis, however follow-up chest CT is suggested in 3-6 months to exclude pulmonary
nodules. Mild fatty infiltration of liver.
05/29/24 CXR: No active cardiopulmonary disease.
05/30/24 CXR: There is new hazy pleural-parenchymal airspace disease in the lower right lung which I favor is right middle lobe pneumonia, however, there may be a component of pleural fluid along the fissure on the right.
Assessment / Plan
# Immunocompromise host: SLE on mycophenolate
# Fever
# Acute respiratory distress
# Suspect PNA
- Repeat CXR today mild hazy opacity RML
- Agree with Chest CTA
-Check sputum cx
- In the meantime, broaden ceftriaxone to cefepime.
- Continue azithromycin for now to cover for legionella/mycoplasma
- DC metronidazole - doubt aspiration
- Follow temps, 02 status.
# Gastroenteritis
- CT a/p mild bowel wall thickening sigmoid, rectum
- C. diff neg.
- Add norovirus PCR
- Stool cx pending.
-ABD US pending
- Cefepime as above.
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
SLE on mycophenolate
History of interstitial lung disease
History of Sweet syndrome
Hypothyroidism
Fibromyalgia
hx SBO x2
Cholecystectomy
HODAN/BSO
Right Total knee replacement
Care Review
Plan reviewed with: Physician (Dr. Panda)
[2024-05-30] MEDS: KCL 40 MEQ PO (15:32)
[2024-05-30] MEDS: ROBITUSSIN DM 5 ML PO ×2 (15:39→19:38)
[2024-05-30] MEDS: TESSALON PERLES 100 MG PO (15:40)
[2024-05-30] MEDS: DUONEB 3 ML INH (16:23)
[2024-05-30] MEDS: MAXIPIME 2000 MG IV (17:24)
[2024-05-30] MEDS: LOVENOX 40 MG SC (17:26)
[2024-05-30 17:45] LABS: Troponin I 0.019 ng/ml
[2024-05-30 17:51] LABS: NT-proBNP 1640 pg/ml
--- NOTE | 2024-05-30 18:15 | PTCARENOTE ---
made aware of pt's respiratory distress with increased RR, need for 4Lo O2 vs 2L. 92-93% 4L O2. Audible wheezing, non productive cough. CXR, chest CT, and transfer to IMU ordered. CT of chest ordered as well, with pre meds to be given one hour
prior. Report given to Job GERMAN in IMU. Son Stu made aware of patient being moved to room 3343. Belongings taken to room. Pt assist x2 on stretcher to IMU.
--- NOTE | 2024-05-30 18:27 | PTCARENOTE ---
Pt brought to IMU on stretcher lungs are coarse. AAOx3 on [address] scan of chest. Pt needs to be pre med after change of shift and then call CT Scan
--- NOTE | 2024-05-30 19:18 | PTCARENOTE ---
TT NATHAN Neri; patient was found to be tachypneic RR 30-40s, tachycardia HR 130s and having increased work of breathing after receiving RN report. Audible crackles in throat and with breathing. RT Chandana TT and at bedside. ABG done. Robitussin
provided, 1mg morphine and IV Ofirmev provided per the JUN. CV/CVN CV TSC SYSTEM OPERATOR at bedside to assess. CXR ordered and obtained at bedside. Bipap ordered but pt unable to tolerate. Patient was pre-medicated with benadryl and solu-cortef prior to obtaining CT scan.
Pt states she is claustrophobic. x1 IV Ativan provided. CT scan done. Pt tolerated well, no signs of reaction (pt is allergic to iodine). Son and DIL at bedside and updated on plan of care. Orders for transfer to ICU received. Report given to Leanne
RN. Pt transferred to room 3359 via bed with belongings. Pt is completely oriented and thankful for care. She is slightly drowsy after ativan.
--- NOTE | 2024-05-30 19:44 | W.PN.UPDATE ---
Update Note
Progress Note Update
Called at bedside to assess the patient.
-Patent is tachypneic with RR in 40s, sob, desatting on 4 L, tachycardia in 130s, bp 151/89, crackle lung sound.
Plan
-One time order of IV lasix given, will repeat chest x-ray and stat lab.
-abg
-will change duo nebs to Xopenex due to tachycardia.
-Patient is refusing Bipap/ can not tolerate.
-abg result (ph 7.46, pco2 26, po2 77, hco3 18.5)
-One time of morphine was given.
Patient has chest CT ordered, claustrophobic and anxious one time order of Ativan was given before CT done.
Chest x-ray
shows Slight interval increase in opacification of the right lower lung, and this likely represents pneumonia.
Airspace opacity within the left lower lung, compatible with pneumonia and/or atelectasis. Evidence for a small left pleural effusion, stable.
Chest CT
-No definite evidence of large central pulmonary artery embolus, assessment for segmental or subsegmental pulmonary artery embolus is of markedly limited diagnosis utility due to extensive motion artifact.
-Marked multifocal consolidation lungs bilaterally most pronounced throughout the left lower lobe and right upper lobe consistent with pneumonia.
-Mild mediastinal and hilar adenopathy.
-Smaller pericardial effusion.
Patient still tachypneic and wob. Discussed with the fruit buyer and will transfer the patient to ICU.
Family at bedside updated and confirmed the code status with patient and family.
[2024-05-30] MEDS: LASIX 40 MG IV (19:48)
[2024-05-30] MEDS: DUONEB INH ×2 (19:50→19:55)
[2024-05-30 19:52] LABS: B.E. -4.5 mmol/L; HCO3 18.5 mmol/L (21-28); O2 Saturation % 98.3 % (94-98); PCO2 26 mmHg (32-35); PO2 77 mmHg (83-108); pH 7.46 (7.35-7.45)
[2024-05-30] MEDS: XOPENEX 1.25 MG INHALANT SOLUTION INH (19:55)
[2024-05-30] MEDS: MORPHINE SULFATE 1 MG IV (20:23)
[2024-05-30] MEDS: OFIRMEV 100 IV (20:24)
[2024-05-30 20:27] LABS: Hematocrit 27.8 % (37.0-47.0); Hemoglobin 9.4 g/dL (12.0-16.0); Mean Corp Hgb Conc. 33.8 g/dL (33.0-37.0); Mean Corpuscular Hgb 30.2 pg (27.0-31.0); Mean Corpuscular Volume 89.4 fL (81.0-99.0); Mean Platelet Volume 10.1 fL (7.4-10.4); Platelet Count 58 10^3/uL (130-400); Red Blood Cell Count 3.11 10^6/uL (4.20-5.40); Red Cell Dist. Width 14.8 % (11.5-14.5); White Blood Cell Count 8.2 10^3/uL (4.8-10.8)
[2024-05-30 20:40] LABS: Troponin I 0.021 ng/ml
[2024-05-30 20:41] LABS: Blood Urea Nitrogen 17 mg/dl (7-17); Calcium 8.7 mg/dl (8.4-10.2); Carbon Dioxide 16 mmol/L (22-30); Chloride 107 mmol/L (98-107); Estimated Creatinine Clearance 62 ml/min; Glucose 116 mg/dl (70-99); Magnesium 2.1 mg/dl (1.6-2.3); Sodium 137 mmol/L (135-145); eGFR > 60.00
[2024-05-30] MEDS: ZOFRAN 4 MG IV (20:49)
[2024-05-30] MEDS: BENADRYL 50 MG IV (20:51)
[2024-05-30] MEDS: SOLU-CORTEF 200 MG IV (20:52)
[2024-05-30 22:30] LABS: ANA, IgG Reflex to HEp-2 None Detected (None Detected)
[2024-05-30] MEDS: ATIVAN 1 MG IV (22:50)
[2024-05-30] MEDS: MUCINEX PO (23:49)
[2024-05-31] VITALS (17 sets, daily range): BP systolic 121–148; BP diastolic 57–85; PULSE 2–110; BMI 34.8
--- NOTE | 2024-05-31 | PTCARENOTE ---
Received pt via handoff. Pt AAOx3 able to MENA, afebrile in a very cheerful mood. Sinus tach, pulses present. 90% on 4L NC, crackles throughout. Hypoactive bowel sounds in all 4Q, stomach slightly distended. Purewick in place draining clear yellow
urine. Antibiotics running. Son and daughter at bedside.
--- NOTE | 2024-05-31 | PTCARENOTE ---
Received pt via transfer from IMU. Pt AAOx3 able to MENA, afebrile. Sinus tach, pulses present. 90% on 4L NC, crackles throughout. Hypoactive bowel sounds in all 4Q, stomach slightly distended. Purewick in place draining clear yellow urine.
Antibiotics running. Son and daughter at bedside.
[2024-05-31] MEDS: ZITHROMAX INFUSION 250 IV ×2 (00:43→23:03)
[2024-05-31] MEDS: DILAUDID 0.5 MG IV ×2 (00:43→22:57)
[2024-05-31] MEDS: STERILE WATER FOR INJECTION 10 ML IV ×3 (02:12→17:21)
[2024-05-31] MEDS: MAXIPIME 2000 MG IV ×3 (02:12→17:20)
[2024-05-31] MEDS: ROXICODONE 10 MG PO ×4 (02:12→19:42)
[2024-05-31] MEDS: MELATONIN 5 MG PO ×2 (02:18→22:57)
[2024-05-31] MEDS: SYNTHROID 75 MCG PO (04:53)
--- NOTE | 2024-05-31 05:09 | PTCARENOTE ---
All systems reassessed, hygiene performed and labs drawn. Call vang at bedside.
[2024-05-31 05:22] LABS: ALT (SGPT) 23 U/L (0-35); AST (SGOT) 32 U/L (14-36); Albumin 2.9 g/dl (3.5-5.0); Alkaline Phosphatase 263 U/L (38-126); Blood Urea Nitrogen 24 mg/dl (7-17); Calcium 8.4 mg/dl (8.4-10.2); Carbon Dioxide 20 mmol/L (22-30); Chloride 107 mmol/L (98-107); Estimated Creatinine Clearance 57 ml/min; Glucose 147 mg/dl (70-99); Potassium 4.2 mmol/L (3.5-5.1); Sodium 141 mmol/L (135-145); Total Bilirubin 5.5 mg/dl (0.2-1.3); Total Protein 5.7 g/dl (6.3-8.2); eGFR > 60.00
[2024-05-31 05:30] LABS: Hematocrit 23.5 % (37.0-47.0); Hemoglobin 7.9 g/dL (12.0-16.0); Mean Corp Hgb Conc. 33.6 g/dL (33.0-37.0); Mean Corpuscular Hgb 30.3 pg (27.0-31.0); Mean Platelet Volume 11.1 fL (7.4-10.4); Platelet Count 59 10^3/uL (130-400); Red Blood Cell Count 2.61 10^6/uL (4.20-5.40); White Blood Cell Count 9.8 10^3/uL (4.8-10.8)
--- NOTE | 2024-05-31 07:15 | CON.INTV ---
Consultation
Consultation Request
Date/Time Consultation Requested: 05/31/24
Date/Time Consultation Performed: 05/31/24
Performing Provider: Alvarado
Reason for Consultation: ICU
Medical History
-
History of Present Illness:
Patient is a 68-year-old female with past medical history significant for DVT, lupus on cellcept, prior ILD, Sweet syndrome, fibromyalgia, hypothyroid presenting to emergency department with 5 days of nausea/vomiting, epigastric pain, loose
stools and shortness of breath. She also noted Tmax at home 103.6F. In ER, she was tachypneic (RR >20), tachycardic (HR 125), sat 94% on RA, BP 129/78. Denies sick contacts and Influenza/COVID testing negative. Other abnormal labs include: WBC
8.9 with 14% bands, Hb 9.8 Plt 65, Na 123 K 3.6 Bicarb 13 w/ AG of 18. She had slight elevation in LFTs, TB 2.8 Alk phos of 393.
A CT of the abdomen pelvis showed small patchy consolidation within the bilateral lower lobes, trace effusions likely reactive multifocal infection. Adm to floors on 05/29/24 for possible GI vs Pulm infection, placed on abx IV.
SET ILLUSTRATOR called overnight on 05/30/24 for RR in 40s, SOB--resp distress on 4L, placed on HFNC. CXR showing interval increase in opacities. Transferred to ICU for further management.
Past Medical History
Past Medical History: Other (see list below)
Social History
Tobacco: Non-smoker
Alcohol: None
Drug: None
Family History
Family History: Reviewed & Not Pertinent
Allergies / Home Medications
Allergies
Allergy/AdvReac Type Severity Reaction Status Date / Time
adhesive Allergy Hives Verified 05/30/24 16:12
aspirin Allergy Anaphylaxis Verified 11/28/19 06:32
azathioprine [From Imuran] Allergy Nausea / Verified 11/28/19 06:32
Vomiting
doxycycline Allergy Nausea / Verified 11/28/19 06:32
Vomiting
iodine [Iodine] Allergy Anaphylaxis Verified 11/28/19 06:32
NSAIDS (Non-Steroidal Allergy Anaphylaxis Verified 11/28/19 06:32
Anti-Inflamma
prochlorperazine Allergy gnashing Verified 11/28/19 06:32
teeth
venom-honey bee Allergy bee Verified 05/30/24 16:12
stings-anaphylaxis
Home Medications
�Medication �Instructions �Recorded �Confirmed �Last Taken �Type
levothyroxine 75 mcg tablet 75 mcg PO DAILY Thyroid 08/21/09 05/29/24 10/24/18 07:00 History
estradiol 1 mg tablet 1 mg PO DAILY Hormonal agent 11/15/11 05/29/24 10/24/18 08:00 History
cholecalciferol (vitamin D3) 50 50 mcg PO DAILY 05/28/24 05/29/24 Unknown History
mcg (2,000 unit) capsule (Vitamin
D3)
multivitamin 1 tab PO DAILY 05/28/24 05/29/24 Unknown History
mycophenolate mofetil 500 mg 1,500 mg PO DAILY 05/28/24 05/29/24 Unknown History
tablet (CellCept)
omega 9-ujb-gsj-fish oil 1,000 mg 1 cap PO DAILY 05/28/24 05/29/24 Unknown History
(120 mg-180 mg) capsule (Fish Oil)
oxycodone 10 mg tablet 10 mg PO QID 05/29/24 05/29/24 Unknown History
Review of Systems
-
History Source: Patient
All other systems: Negative unless noted
Vitals / Labs / Diagnostic Testing
Vital Signs
Temp Pulse Resp BP Pulse Ox
98.6 F 102 26 123/67 99
05/31/24 03:30 05/31/24 05:00 05/31/24 05:00 05/30/24 22:00 05/31/24 05:00
Lab Data
05/31/24 04:50
05/31/24 04:50
Laboratory Results
05/30/24
19:47
pH 7.46 H
pCO2 26 L
pO2 77 L
HCO3 18.5 L
O2 Delivery Level
Microbiology
05/29/24 09:32 Feces/Stool Stool Leukocytes - Final
05/29/24 09:32 Feces/Stool C. difficile GDH Antigen & Toxins - Final
Negative for toxigenic C.difficile
05/29/24 09:32 Feces/Stool - Final
Negative for Norovirus GI and GII.
05/29/24 12:59 Blood/Venous Blood Culture - Preliminary
No Growth in 24 hours- Final report to follow
05/29/24 12:59 Blood/Venous Blood Culture - Preliminary
No Growth in 24 hours- Final report to follow
05/29/24 05:44 Urine Legionella Urinary Antigen - Final
Negative for Legionella pneumophila Serogroup 1 antigen.
A negative result does not rule out the possiblity of
Legionella infection due to other serogroups or species of
Legionella. Clinical correlation is recommended.
05/29/24 05:44 Urine Streptococcus pneumoniae Antigen (M - Final
Negative for Streptococcus pneumoniae antigen.
A negative result does not exclude infection with
Streptococcus pneumoniae. Clinical correlation is
recommended.
05/28/24 18:40 Nasal Swab Influenza Types A & B (DARLEEN) - Final
Negative for Influenza A & B, NAAT
Negative results must be combined with clinical observations
and patient history.
Nucleic Acid Amplification test (NAAT)performed on the
[employer] platform.
Diagnostic Testing:
Physical Exam
-
HEENT: Normocephalic, Anicteric and Moist Mucous Membranes
Cardiovascular: S1/S2 and Regular Rhythm
Respiratory: Rales and Other (rapid shallow breathing)
GI: Soft, Non Distended and Non Tender
Neurology: Awake, Alert, Oriented and No Motor Deficits
Skin: Warm, Dry and Good Color
General: Comfortable, Poor Appetite and Other (chronically ill appearing)
Assessment
-
Patient is a 68-year-old female with past medical history significant for DVT, lupus on cellcept, prior ILD, Sweet syndrome, fibromyalgia, hypothyroid presenting to emergency department with 5 days of nausea/vomiting, epigastric pain, loose
stools and shortness of breath. She also noted Tmax at home 103.6F. In ER, she was tachypneic (RR >20), tachycardic (HR 125), sat 94% on RA, BP 129/78. Denies sick contacts and Influenza/COVID testing negative. Other abnormal labs include: WBC
8.9 with 14% bands, Hb 9.8 Plt 65, Na 123 K 3.6 Bicarb 13 w/ AG of 18. She had slight elevation in LFTs, TB 2.8 Alk phos of 393.
A CT of the abdomen pelvis showed small patchy consolidation within the bilateral lower lobes, trace effusions likely reactive multifocal infection. Adm to floors on 05/29/24 for possible GI vs Pulm infection, placed on abx IV.
SET ILLUSTRATOR called overnight on 05/30/24 for RR in 40s, SOB--resp distress on 4L, placed on HFNC. CXR showing interval increase in opacities. Transferred to ICU for further management.
Acute hypoxic respiratory failure on high flow nasal cannula
Multifocal PNA
Nausea vomiting/epigastric pain/loose stools
Fever
Bandemia
Thrombocytopenia
AGMA 18
Anemia
Conditions present prior to admission
Hypothyroidism.
HLD
Sweet syndrome.
Lupus on Cellcept, hx of pleurisy
Interstitial lung disease followed by Dr. Gracia but has not f/u in many years
Severe restrictive lung disease, bronchiectasis-wears O2 2l via n/c
Last PFT 2008, TLC 29%
hx nephritis during childhood and at age 16
Fibromyalgia.
Migraines.
Cholecystectomy.
HODAN-BSO
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
Right total knee arthroplasty 07/19.
Scleritis/episcleritis
Obesity BMI 34.8
Plan
No current signs of metabolic encephalopathy or MS changes/following commands
Denies pain at this time.
Pain/sedation: PRN, resumed on home pain meds, hold for sedation
RASS goals: 0
Hemodynamically stable, not requiring pressors.
Cardiac history reviewed--none
Prior ECHO reviewed indicating stable function
proBNP elevated, repeat ECHO
Lasix given x 1, follow UO, consideration for continued treatment
Monitor on telemetry
Oxygen needs: remains on HFNC, 55LPM, 40%--can trial back on NRB vs PAP
Prior history of lung disease: ILD, RLD-severe, last TLC 29%
Supplemental O2 as indicated to maintain sats > 89%
CXR/CT reviewed indicating large R sided consolidation
Airway clearance added
ABG 7.46/26/77/18.5
Encouraged PO intake, but can place DHT is high risk
Hotel Clerk recommendations
Aspiration precautions, HOB > 30 degrees
Speech therapy eval
GI prophylaxis if indicated for mechanical ventilation >48 hours, prior history of GERD, stress ulcer formation in the critically ill
Creat at baseline, no history of renal disease
Void trials
Follow urine output, critical I/Os
Replete electrolytes as needed
Acid/base status: AGMA + NAGMA, likely related to infection and GI losses
Repletion wtih bicarb
Fever and increased WBC on presentation, PNA noted r/o aspiration
Started on empiric antibiotics
Cultures sent/pending
Follow fever trend, WBC count
CBC stable, no signs of bleeding or coagulopathy.
Cytopenia noted, observation
Lupus on cellcept, being held--add on IV steroids given hypoxemia
DVT prophylaxis as assessed based on risk, including mechanical SCDs
Can transfuse if indicated for Hb <7, plt < 10
No prior h/o diabetes --BG slightly elevated
Monitor accuchecks PRN/SS coverage if needed
H/o hypothyroidism, can continue on home synthroid dose
We discussed code status with family, given her baseline lung history, she is at risk for prolongation on the vent
She is full code for now
Diagnostic Data
Chest X-Ray: 05/30/24- Slight interval increase in opacification of the right lower lung, and this likely represents pneumonia. Airspace opacity within the left lower lung, compatible with pneumonia and/or atelectasis. Evidence for a small left
pleural effusion, stable.
CT Scan: CHEST 05/30/24- Limited by motion degradation, as described. Pulmonary artery assessment in the lower lobes beyond the pulmonary arterial lobar segments is nondiagnostic. Otherwise, no pulmonary embolism is identified. Bilateral multifocal
pneumonia. The examination was performed after-hours on an emergency basis, with initial preliminary interpretation provided by [facility].
Echo: 08/13/23- Normal left ventricular size, wall thickness and systolic function. No regional wall motion abnormalities are seen. LV ejection fraction is 60-65% by Poe's method of discs. Normal diastolic function. Normal right ventricular size
and function. Mitral valve opens normally. No mitral stenosis. Trace mitral regurgitation. Thickened trileaflet aortic valve with normal leaflet excursion. Aortic valve sclerosis. No aortic stenosis. No aortic regurgitation is seen. Tricuspid valve
opens normally. Mild tricuspid regurgitation. Estimated pulmonary artery pressure of 25-30 mmHg. Assuming a right atrial pressure of 3 mmHg.Compared to prior study 02/14/2018 aortic valve sclerosis is noted.
PFT's: 2008- FVC is 0.75 or 25%, FEV1 is 0.59 or 24%, Ratio of 78, FEF 25-75 is 0.56 or 23%. There is a 77% improvement in the FEF 25-75 following bronchodilator.
TLC is 1.29 or 29%, Diffusing capacity is 4.85 or 22% -- Severe mixed Obstructive and Restrictive Lung Disease with severe gas exchange defect.
Reports and relevant images were personally reviewed.
Critical Care time 81 mins -- The patient is admitted for acute critical illness for the treatment of vital organ failure and/or prevention of further life-threatening conditions. Total care includes time spent in review of history, physical exam,
medications, hemodynamic/ventilator parameters, laboratory data, imaging and discussion with house staff, pharmacy, respiratory therapy, cross tie turner, and nursing. Additional time spent reviewing case with medical appliance maker and reviewing plan of care
with family.
[2024-05-31] MEDS: ESTRACE 1 MG PO (07:36)
[2024-05-31] MEDS: MUCINEX 600 MG PO (07:36)
[2024-05-31] MEDS: THERAGRAN 1 TABLET PO (07:36)
[2024-05-31] MEDS: XOPENEX 1.25 MG INHALANT SOLUTION INH ×3 (07:41→19:29)
--- NOTE | 2024-05-31 08:55 | CON.INTV ---
Consultation
Consultation Request
Date/Time Consultation Requested: 05/31/24
Date/Time Consultation Performed: 05/31/24
Medical History
-
Chief Complaint: Shortness of breath, hypoxemia and increased work of breathing
History of Present Illness:
Patient is a 68-year-old female with past medical history of lupus on mycophenolate, interstitial lung disease, syndrome, fibromyalgia on oxycodone, hypothyroidism, SBO x 2 who presented to the ED on 05/28/2024 due to shortness of breath, mild
epigastric discomfort, nausea, vomiting x5 days, loose bowel movements, pleuritic chest pain, fever (103 F) and shortness of breath. Denies travel history. Patient notes GI symptoms in her granddaughter. In the ED, white count was normal with 14%
bands, low bicarb 13, elevated total bilirubin 2.8, elevated alk phos 393, COVID-negative, flu negative. Abdomen pelvis CT scan showed mild bowel wall thickening and mesenteric inflammatory change adjacent to the rectosigmoid colon consistent with
colitis, patchy ground glass opacity at each lung base, mild fatty infiltration of liver. Patient was started on Zithromax, ceftriaxone and Flagyl for likely colitis versus pneumonia. Was hemodynamically stable and admitted to the floor. Chest
x-ray 05/29/2024 showed no active cardiopulmonary process. Repeat chest x-ray 05/30/2024 showed new hazy pleural-parenchymal parenchymal airspace disease in the right lower lung concerning for right middle lobe pneumonia. Yesterday evening, patient
became tachypneic, tachycardic and was desaturating on 4 L of oxygen. Blood pressure was stable. Was given 1 dose of Lasix for possible acute heart failure (proBNP 1600, baseline unknown), and was transferred to the ICU for further management.
Past Medical History
Past Medical History: Arrhythmias (Afib?), Fibromyalgia, Hypothyroidism and Other (Lupus, ILD, Sweet syndrome, remote history of DVT, SBO x2)
Past Surgical History: Cholecystectomy, Gynecological (HODAN-BSO), Orthopedic, Tonsilectomy and Other (laparotomy for mesenteric cyst resection )
Social History
Tobacco: Former Smoker
Personal:
Living: With Family
Employment: Retired
Allergies / Home Medications
Allergies
Allergy/AdvReac Type Severity Reaction Status Date / Time
adhesive Allergy Hives Verified 05/30/24 16:12
aspirin Allergy Anaphylaxis Verified 11/28/19 06:32
azathioprine [From Imuran] Allergy Nausea / Verified 11/28/19 06:32
Vomiting
doxycycline Allergy Nausea / Verified 11/28/19 06:32
Vomiting
iodine [Iodine] Allergy Anaphylaxis Verified 11/28/19 06:32
NSAIDS (Non-Steroidal Allergy Anaphylaxis Verified 11/28/19 06:32
Anti-Inflamma
prochlorperazine Allergy gnashing Verified 11/28/19 06:32
teeth
venom-honey bee Allergy bee Verified 05/30/24 16:12
stings-anaphylaxis
Home Medications
�Medication �Instructions �Recorded �Confirmed �Last Taken �Type
levothyroxine 75 mcg tablet 75 mcg PO DAILY Thyroid 08/21/09 05/29/24 10/24/18 07:00 History
estradiol 1 mg tablet 1 mg PO DAILY Hormonal agent 11/15/11 05/29/24 10/24/18 08:00 History
cholecalciferol (vitamin D3) 50 50 mcg PO DAILY 05/28/24 05/29/24 Unknown History
mcg (2,000 unit) capsule (Vitamin
D3)
multivitamin 1 tab PO DAILY 05/28/24 05/29/24 Unknown History
mycophenolate mofetil 500 mg 1,500 mg PO DAILY 05/28/24 05/29/24 Unknown History
tablet (CellCept)
omega 2-tgf-mrg-fish oil 1,000 mg 1 cap PO DAILY 05/28/24 05/29/24 Unknown History
(120 mg-180 mg) capsule (Fish Oil)
oxycodone 10 mg tablet 10 mg PO QID 05/29/24 05/29/24 Unknown History
Review of Systems
-
History Source: Patient and Family
Constitutional: Fever
EENT: No Symptoms
Respiratory: Cough and Trouble Breathing
Cardiac: Chest Pain (pleuritic)
Abdomen/GI: Abdominal Pain and Diarrhea
: No Symptoms
Musculoskeletal: No Symptoms
Skin: No Symptoms
Neuro: No Symptoms
Endocrine: No Symptoms
Hematologic/Lymphatic: No Symptoms
Vitals / Labs / Diagnostic Testing
Vital Signs
Temp Pulse Resp BP Pulse Ox
97.9 F 109 27 135/73 92
05/31/24 08:00 05/31/24 08:00 05/31/24 08:00 05/31/24 08:00 05/31/24 08:00
Lab Data
05/31/24 04:50
05/31/24 04:50
Laboratory Results
05/30/24
19:47
pH 7.46 H
pCO2 26 L
pO2 77 L
HCO3 18.5 L
O2 Delivery Level
Microbiology
05/29/24 09:32 Feces/Stool Stool Leukocytes - Final
05/29/24 09:32 Feces/Stool C. difficile GDH Antigen & Toxins - Final
Negative for toxigenic C.difficile
05/29/24 09:32 Feces/Stool - Final
Negative for Norovirus GI and GII.
05/29/24 12:59 Blood/Venous Blood Culture - Preliminary
No Growth in 24 hours- Final report to follow
05/29/24 12:59 Blood/Venous Blood Culture - Preliminary
No Growth in 24 hours- Final report to follow
05/29/24 05:44 Urine Legionella Urinary Antigen - Final
Negative for Legionella pneumophila Serogroup 1 antigen.
A negative result does not rule out the possiblity of
Legionella infection due to other serogroups or species of
Legionella. Clinical correlation is recommended.
05/29/24 05:44 Urine Streptococcus pneumoniae Antigen (M - Final
Negative for Streptococcus pneumoniae antigen.
A negative result does not exclude infection with
Streptococcus pneumoniae. Clinical correlation is
recommended.
05/28/24 18:40 Nasal Swab Influenza Types A & B (DARLEEN) - Final
Negative for Influenza A & B, NAAT
Negative results must be combined with clinical observations
and patient history.
Nucleic Acid Amplification test (NAAT)performed on the
[employer] platform.
Diagnostic Testing:
Physical Exam
-
HEENT: Normocephalic
Cardiovascular: S1/S2, Regular Rhythm, Peripheral Edema (n), JVD (n) and Other (Sinus tachycardia)
Respiratory: Rales (Diffuse bilateral), Accessory Resp Muscle Use (n) and Other (Tachypneic, rapid shallow breathing)
GI: Soft, Distended and Tender (Mild epigastric tenderness, no guarding/rebound)
Neurology: Awake, Alert, Oriented and AO x 3
Skin: Warm and Good Color
General: Respiratory Distress and Poor Appetite
Assessment
-
68-year-old female with pmhx significant for lupus on cellcept, ILD, Sweet syndrome, fibromyalgia on oxycodone, hypothyroidism, remote history of DVT presenting to the ED with sepsis, likely secondary to pneumonia vs colitis admitted to the ICU with
increased shortness of breath requiring high flow oxygen.
# Acute hypoxemic respiratory failure
- Patient had increased shortness of breath, work of breathing and worsening hypoxemia yesterday evening. Was on 4L oxygen yesterday, required increased oxygen needs, currently on high flow nasal cannula 55L FiO2 40%. Apparently, patient refused
BiPAP yesterday. On arrival patient had bicarb 13, mixed anion and non-anion gap metabolic acidosis. Today ABG 7.46/26/77/18.5, now has respiratory acidosis. Bicarb trending up likely in the setting of less GI loss.
- Chest CT scan 05/30/24: Dense consolidation occupying most of the left lower lobe, consistent with pneumonia. Right middle lobe pneumonia. Patchy airspace opacities in the right lower lobe and small patchy opacities in the upper lobes, consistent
with pneumonia. No evidence of pulmonary embolism.
Patient is on broad spectrum antibiotics (cefepime and azithromycin) for possible pneumonia.
- BNP elevated at 1600 (baseline unknown). Trop negative. Echo last year EF 60-65%, aortic valve sclerosis, trace MR. Patient does not look volume overloaded, imaging findings do not show evidence of heart failure. Patient is not oliguric, received
one dose of IV lasix yesterday evening.
- COVID, flu negative. Procal elevated at 17=6.94. Sputum culture ordered but not obtained yet.
- Unclear whether underlying ILD is contributing to current process. Patient got one dose of hydrocortisone yesterday. Denies progression of any rheumatologic symptoms.
# Sepsis
- SIRS positive (tachycardia, tachypnea, fever, band cells)
- Likely due to pneumonia vs colitis
- Patient is on broad spectrum antibiotics (cefepime and azithromycin)
- Blood culture neg, stool culture pending
# Colitis
- Patient had nausea, vomiting, epigastric pain, loose stools. Not currently feeling nauseous/vomiting. She is on broad spectrum antibiotics.
- Norovirus neg, C diff neg, stool wbcs few, stool culture pending
# Bicytopenia, thrombocytopenia and anemia
- Baseline counts unclear. Patient does have a history fo lupus which could be contributing.
- No active bleeding, no coagulopathy.
- Cellcept is held.
- Normocytic anemia, likely 2/2 chronic disease
- Vit B12, folate normal.
# Hyperbilirubinemia, direct
- Etiology unclear, likely 2/2 sepsis vs medication adverse effect vs hepatitis
- AST ALT wnl, Alk Phos elevated.
- Patient has a history of cholecystectomy. Abdominal US shows fatty liver, no CBD dilation.
Conditions present prior to admission
Lupus on Cellcept
Hypothyroidism
Sweet syndrome
Interstitial lung disease
Fibromyalgia on Oxycodone
Severe restrictive lung disease -- Last PFT 2008, TLC 29%
DVT
Afib? -- not on any medications
Cholecystectomy
SBO
HODAN-BSO
Laparotomy for mesenteric cyst removal
Right total knee arthroplasty
Obesity
Plan
Awake, alert, oriented. RASS 0. Patient is on home dose oxycodone for pain management. Tylenol and Dilaudid 0.5 is ordered as needed.
Hemodynamically stable, not requiring pressors. Sinus tachycardia. Continue to monitor rate and rhythm.
Last echo 09/01 EF 60-65%, trace MR, aortic valve sclerosis. Will repeat echo for further evaluation.
Patient does not appear volume overloaded. Chest imaging shows no evidence of pulmonary edema. Will continue to monitor I/Os, weight and consider lasix if needed.
Currently on high flow nasal cannula (55 L, 40% FiO2). Can try BiPAP for positive pressure ventilation. Wean oxygen as able, maintain sats >89%.
Continue duonebs, acapella and spirometry. Add vest therapy. Will consider repeat chest xray tomorrow morning if needed.
Continue antibiotics for possible pneumonia. Obtain sputum culture.
Given patient's history of ILD, will start steroids for possible flare. Monitor accuchecks PRN/SS coverage if needed.
Continue clear liquid diet. If patient is not tolerating diet, will consider tube feeds. Speech evaluation pending.
Patient is at risk of aspiration. Aspiration and reflux precautions, HOB > 30 degrees.
Creat at baseline, no history of renal disease. Follow urine output, critical I/Os. Replete electrolytes as needed.
Continue antibiotics for possible pneumonia and colitis. Stool culture pending.
Continue to monitor blood counts. No active bleeding. Will continue to hold Cellcept. Transfuse if Hb <7 or active bleeding.
DVT prophylaxis Lovenox. Will continue to monitor blood counts.
Continue levothyroxine for hypothyroidism.
Patient's family at bedside, discussed treatment plans and answered all questions.
--- NOTE | 2024-05-31 09:19 | W.PN.HOSP.TC ---
Today's Communication/Plan
-
Continue with antibiotics
Consult hematology and GI
Check an echocardiogram
Assessment / Plan
Assessment / Plan
IMPRESSION:
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
breath with mild O2 requirement is satting 94% on room air, GHAZAL has no cough but reports pleuritic chest pain and some difficulty breathing.
CT scan of the abdomen pelvis revealed patchy consolidation within the bilateral lower lobes related to multifocal infection unlikely, trace bilateral effusions also noted. The abdomen had no significant findings but was consistent with
gastroenteritis. Labs are notable for bandemia to 14%, bicarb of 13 with combination anion gap and non-anion gap metabolic acidosis and mild DAYRON. There is elevated total bilirubin and alk phos with normal LFTs.
PLAN:
#Sepsis-GI source versus pulmonary
Improved fever curve. No fever in last 24 hours. Blood pressure stable so far. Lactic acid was normal on admission.
Continue with treatment of infectious source and supportive treatments.
#Acute colitis-patient presented with GI symptoms including nausea abdominal pain and not much diarrhea. She has CT evidence of colitis involving the rectosigmoid colon. No complication of abscess or perforation. Patient is immunosuppressed. C.
difficile is negative so far. Few white cells in stools noted. Shiga toxin negative. Salmonella/Campylobacter pending.. Continue with cefepime.
Interval history-granddaughter apparently had an acute short-lived episode of GI illness and she was with the patient at home. Potential changes with the health was GI track with nausea vomiting abdominal pain and small amount loose stools. She
then had respiratory symptoms or shortness of breath. Denies any dysphagia. Denies aspiration during her emesis.
#Shortness of breath and associated acute hypoxic respiratory failure
-She rapidly progressed with minimal symptoms to significant shortness of breath and also from requiring 2 L to now high flow oxygen.
-Chest x-ray blossomed very quickly from no findings to bilateral airspace disease. Chest CT yesterday shows multifocal pneumonia.
-Patient has a history of ILD
-Unclear if she had aspiration or this is multifocal infectious pneumonia or developing ARDS
-Her weight since admission has been stable. Her BNP was only 1600s. No evidence of acute DC. Doubt heart failure but will keep her negative. Lasix as needed. Also check an echocardiogram.
#Abnormal liver enzymes - Elevated tbili and alkpho with normal transaminases suggestive of cholestatic pattern. s/p seven, no biliary dilation.
- ggt is up.
- trend lfts for now
- legionella ag negative.
-ultrasound of the abdomen shows no biliary pathology
-With thrombocytopenia and anemia rule out hemolytic process elevated bilirubin which is creeping up.
-Consult GI
#Lupus - No skin rash
-Hold CellCept with active infection
#Thrombocytopenia and anemia. Rule out hemolytic process.
-Consult hematology.
#DAYRON suspect prerenal. Improved creatinine from 1.2-0.7 send IV fluid support.
#Metabolic acidosis-
-Elevated anion gap on admission noted may be related to DAYRON.
-Improved anion gap and bicarb.
-ABG showed alkalosis yesterday which I suspect may be secondary to tachypnea and respiratory alkalosis
-Continue to follow
Discussed with family at bedside
Discussed with RN
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
DVT PPX - lovenox sq
Code status - Full Code
Disposition-ICU
Total Critical Care Time__32___ minutes. I was immediately available to the patient and staff. I personally examined, reviewed labs, diagnostic images/reports, interpretations, treatment plans, discussed patient care with other providers and
family or caregivers (if patient is unable to make decisions), entered orders as appropriate and documented the medical record.
Anticipated Discharge: > 48 hours
Subjective/Interval History
-
Date of Service: May 31, 2024
Patient was more short of breath yesterday during the time she was getting CT scan of the chest. This morning she is bit better with her breathing.
Denies any chest pain. Having cough. No fevers today.
Occasional nausea but no further emesis. Improved abdominal pain. No bowel movement today.
Compared to yesterday she does not feel any worse may be a bit better.
Objective Data
-
Labs:
Laboratory Results
05/31/24
04:50
WBC 9.8
Hgb 7.9 L
Hct 23.5 L
Plt Count 59 L
Sodium 141
Potassium 4.2
Chloride 107
Carbon Dioxide 20 L
BUN 24 H
Creatinine 0.9
Glucose 147 H
Calcium 8.4
Total Bilirubin 5.5 H
AST 32
ALT 23
Alkaline Phosphatase 263 H
Vital Signs:
Vital Signs
Temp Pulse Resp BP Pulse Ox
97.9 F 109 27 135/73 92
05/31/24 08:00 05/31/24 08:00 05/31/24 08:00 05/31/24 08:00 05/31/24 08:00
I&O
05/30/24 05/31/24 06/01/24
06:59 06:59 06:59
Intake Total 480 / 480 730 / 730
Output Total 1150 / 1150 0 / 0
Balance 480 / 480 -420 / -420 0 / 0
Review of Systems
-
Neuro: Denies Dizzy
Physical Exam
-
General: No Apparent Distress
Respiratory: Rhonchi (Bilateral), Non Labored Respirations and Other (The); Negative Wheezes or Accessory Resp Muscle Use
Cardiac: Regular Rhythm, S1/S2 and Tachycardic
GI: Soft, Nondistended, Normal Bowel Sounds and Tender (Epigastric and right upper quadrant area; there is a history of acute onset of right upper quadrant abdominal pain when she was throwing up throughout the day. Today when I asked her to cough
she complained of abdominal pain in the right upper quadrant area)
Skin: Other (No bruising noted in the right upper quadrant or epigastric area)
Neuro: AO x 3
Psych: Calm
Data Reviewed
-
CT Scan: Report Reviewed by me (CT chest)
Labs: Labs Reviewed by me
--- NOTE | 2024-05-31 09:29 | CON.ONC ---
Impression
Impression
b/l multifocal PNA
colitis
normocytic anemia
thrombocytopenia
SLE on cellcept
Plan
Plan
I do not have recent CBC baseline, however, labs available in system show a normal Hgb and platelet count in 2020. 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 Would be helpful to have for review.
Hold cellcept for now
check Retic, MUSTAPHA, follow up haptoglobin, ESR, CRP
Dr. Parra plans to check peripheral smear
suspect component of dilution on sepsis protocol with IVF
monitor for bleeding, check heme stool
avoid nsaids, anticoagulation, antiplatelets if platelets <50,000
transfuse Hgb <7g/dL or as needed for sxs anemia
abx for PNA/colitis/gastroenteritis per ID
repeat CT chest 3-6 months with PCP to exclude pulmonary nodules
and son at bedside during visit, questions answered.
Patient History
History of Present Illness
68yo F who presented with fever, pleuritic chest discomfort, shortness of breath and nausea. She reports symptom onset 5-6 days ago. She had mild epigastric pain with non-bloody emesis on Tuesday morning. Her Tmax at home was 103.6F. She reports
that pleuritic chest pain that worsened with deep inspiration prompted her to seek further evaluation in the ER. Intital evaluation showed WBC 8.2, Hg 9.4, platelet count 58,000, Tbili 2.8, AST 32, ALT 23, alk phos 263. Her blood cultures, urine,
and stool are negative to date for infection. Her CT ab/pelvis showed colitis. Her CTA chest showed LLL/RML/RLL PNA. There was no pulmonary emboli identified, however, study was limited by motion degradation. Ab US showed fatty liver, no dilatation
of the common or intrahepatic ducts, and a normal spleen. She has been admitted, started on IV abx.
Hematology was consulted for evaluation of anemia and thrombocytopenia. Her Hgb on admission was 9.8g/dL and has trended down to 7.9g/dL and platelet count was 65,000 on admission 59,000. Her bilirubin has trended up to 5.5 with normal AST/ALT and
elevated Alk phos 263. Her LDH is 353. Haptoglobin is pending. She has no B12 or folate deficiency.
Cher tells me that she is on chronic CellCept for SLE. 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 She denies any overt bleeding. She has intentional weight loss due to
exercise and diet changes. She is overdue for routine colonoscopy.
Past-Medical/Surgical History
past medical history: lupus, ILD, Sweet syndrome, fibromyalgia, hypothyroid, aortic valve sclerosis, SBO
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
Social former smoker, denies ETOH or recreational drugs. Lives with . Retired.
Family: non-contributory
Patient Medication
�Medication �Instructions �Recorded �Confirmed �Last Taken �Type
levothyroxine 75 mcg tablet 75 mcg PO DAILY Thyroid 08/21/09 05/29/24 10/24/18 07:00 History
estradiol 1 mg tablet 1 mg PO DAILY Hormonal agent 11/15/11 05/29/24 10/24/18 08:00 History
cholecalciferol (vitamin D3) 50 50 mcg PO DAILY Supplement 05/28/24 05/29/24 Unknown History
mcg (2,000 unit) capsule (Vitamin
D3)
multivitamin 1 tab PO DAILY Supplement 05/28/24 05/29/24 Unknown History
mycophenolate mofetil 500 mg 1,500 mg PO DAILY Lupus 05/28/24 05/29/24 Unknown History
tablet (CellCept)
omega 4-rkd-mde-fish oil 1,000 mg 1 cap PO DAILY Supplement 05/28/24 05/29/24 Unknown History
(120 mg-180 mg) capsule (Fish Oil)
oxycodone 10 mg tablet 10 mg PO QID Pain 05/29/24 05/29/24 Unknown History
Active Medications
Generic Name Dose Route Start Last Admin
Trade Name Freq PRN Reason Stop Dose Admin
Acetaminophen 650 mg 05/29/24 03:31 05/30/24 09:20
Acetaminophen 325 Mg Tablet PO 06/26/24 03:30 650 mg
Q4HPRN PRN Administration
mild pain/RM/temp> 100.4F
Benzonatate 100 mg 05/30/24 15:22 05/30/24 15:40
Benzonatate 100 Mg Capsule PO 06/27/24 15:21 100 mg
TIDPRN PRN Administration
cough
Bisacodyl 10 mg 05/29/24 03:31
Bisacodyl 10 Mg Rectal Suppository RECTAL 06/26/24 03:30
[id number] PRN
constipation
Cefepime HCl 2,000 mg 05/30/24 18:00 05/31/24 02:12
Cefepime Hcl 2,000 Mg/12.5 Ml Vial IV 2,000 mg
Q8H DONA Administration
Diphenhydramine HCl 50 mg 05/30/24 17:15 05/30/24 20:51
Diphenhydramine 50 Mg/Ml 1 Ml Vial IV 06/27/24 17:14 50 mg
ONCE PRN PRN Administration
CHEST CT
Enoxaparin Sodium 40 mg 05/29/24 18:00 05/30/24 17:26
Enoxaparin Sodium 40 Mg/0.4 Ml Syringe SC 06/26/24 17:59 40 mg
QPM DONA Administration
Estradiol 1 mg 05/29/24 08:00 05/31/24 07:36
Estradiol 1 Mg Tablet PO 06/26/24 07:59 1 mg
DAILY DONA Administration
Guaifenesin 600 mg 05/30/24 08:00 05/31/24 07:36
Guaifenesin 600 Mg Extended Release Tablet PO 06/27/24 07:59 600 mg
Q12 DONA Administration
Guaifenesin/Dextromethorphan 5 ml 05/30/24 15:22 05/30/24 19:38
Guaifenesin/Dextromethorphan 200 Mg/10 Ml Cup PO 06/27/24 15:21 5 ml
Q4HPRN PRN Administration
cough
Hydrocortisone Sodium Succinate 200 mg 05/30/24 17:13 05/30/24 20:52
Hydrocortisone Sodium Succinate 100 Mg/2 Ml Vial IV 06/27/24 17:12 200 mg
ONCE PRN PRN Administration
CHEST CT
Hydromorphone HCl 0.5 mg 05/29/24 03:31 05/31/24 00:43
Hydromorphone 0.5 Mg/0.5 Ml Syringe IV 06/12/24 03:30 0.5 mg
Q4HPRN PRN Administration
severe pain
Azithromycin 500 mg in 250 mls @ 250 mls/hr 05/30/24 00:00 05/31/24 00:43
Zithromax Infusion IV 250 mls
Q24H DONA Administration
Levalbuterol HCl 1.25 mg 05/30/24 19:52 05/31/24 07:41
Levalbuterol 1.25 Mg/3 Ml Ampul INH 1.25 mg
R Q6HPRN PRN Administration
sob/Wheezing
Protocol
Levothyroxine Sodium 75 mcg 05/29/24 06:00 05/31/24 04:53
Levothyroxine 75 Mcg Tablet PO 06/26/24 05:59 75 mcg
DAILY @ 0600 DONA Administration
Multivitamins Therapeutic 1 tablet 05/29/24 08:00 05/31/24 07:36
Multivitamin Tablet PO 06/26/24 07:59 1 tablet
DAILY DONA Administration
Mycophenolate Mofetil 500 mg 05/29/24 08:00 05/30/24 09:12
Mycophenolate 500 Mg Tablet PO 06/26/24 07:59 500 mg
TID DONA Administration
Ondansetron HCl 4 mg 05/29/24 03:31 05/30/24 20:49
Ondansetron 4 Mg/2 Ml Vial IV 06/26/24 03:30 4 mg
Q6HPRN PRN Administration
nausea and vomiting
Oxycodone HCl 10 mg 05/29/24 08:00 05/31/24 07:36
Oxycodone 10 Mg Regular Release Tablet PO 06/12/24 07:59 10 mg
Q6H DONA Administration
Polyethylene Glycol 17 grams 05/29/24 03:31
Polyethylene Glycol Powder 17 Grams Packet PO 06/26/24 03:30
DAILYPRN PRN
constipation
Senna/Docusate Sodium 1 tablet 05/29/24 03:31
Docusate W/Senna (Genesis-Colace) Tablet PO 06/26/24 03:30
BIDPRN PRN
constipation
Sodium Chloride 0 flush 05/29/24 03:00
Sodium Chloride 0.9% (Flush) Syringe IV 06/26/24 02:59
PER PROTOCOL DONA
Sodium Chloride 1 sprays 05/30/24 03:07
Sodium Chloride 0.65% Nasal [place]heens 45 Ml Bottle NASAL 06/27/24 03:06
QIDPRN PRN
nasal congestion/dryness
Sterile Water 10 ml 05/30/24 18:00 05/31/24 02:12
Sterile Water For Injection 10 Ml Vial IV 06/27/24 17:59 10 ml
Q8H DONA Administration
Review of Systems
-
ROS notable for HPI, otherwise negative
Physical Exam
Labs
Lab Results
WBC 9.8 10^3/uL (4.8-10.8) 05/31/24 04:50
RBC 2.61 10^6/uL (4.20-5.40) L 05/31/24 04:50
Hgb 7.9 g/dL (12.0-16.0) L 05/31/24 04:50
Hct 23.5 % (37.0-47.0) L 05/31/24 04:50
MCV 90.0 fL (81.0-99.0) 05/31/24 04:50
MCH 30.3 pg (27.0-31.0) 05/31/24 04:50
MCHC 33.6 g/dL (33.0-37.0) 05/31/24 04:50
RDW 15.0 % (11.5-14.5) H 05/31/24 04:50
Plt Count 59 10^3/uL (130-400) L 05/31/24 04:50
MPV 11.1 fL (7.4-10.4) H 05/31/24 04:50
Creatinine 0.9 mg/dL (0.6-1.0) 05/31/24 04:50
Vital Signs
Vital Signs
Temp Pulse Resp BP Pulse Ox
97.9 F 109 27 135/73 92
05/31/24 08:00 05/31/24 08:00 05/31/24 08:00 05/31/24 08:00 05/31/24 08:00
[2024-05-31 09:35] LABS: Direct Bilirubin 3.8 mg/dl (0.0-0.4); LDH 353 U/L (120-246)
--- NOTE | 2024-05-31 09:52 | W.PN.ID1 ---
Date of Service
Date of Service: May 31, 2024
Today's Communication
Continue cefepime, azithromycin.
Assessment / Plan
# Immunocompromise host: SLE on mycophenolate
# Fever - resolving
# Acute hypoxemic respiratory failure on HFNC
# Multifocal PNA
- Chest CT: no PE
- Continue cefepime (d2) and azithromycin (d4)
- Follow temps, 02 status.
# Gastroenteritis
- Exposure to granddaughter with GI illness
- Recent N/V/D
- CT a/p mild bowel wall thickening sigmoid, rectum
- ABD US unremarkable GB
- C. diff neg.
- norovirus PCR neg
- Stool cx pending.
- Cefepime as above.
# Acute thrombocytopenia
- Follow closely
# Hyperbilirubinemia
- Hemolysis workup as per Hospitalist
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
SLE on mycophenolate
History of interstitial lung disease
History of Sweet syndrome
Hypothyroidism
Fibromyalgia
hx SBO x2
Cholecystectomy
HODAN/BSO
Right Total knee replacement
Chief Complaint
-: Pneumonia and Other (colitis)
Subjective / Review of Systems
Family at bedside.
Pt SOB.
No BM today yet.
Vital Signs / Physical Exam
Vital Signs
Vital Signs
Temp Pulse Resp BP Pulse Ox
97.9 F 109 27 135/73 92
05/31/24 08:00 05/31/24 08:00 05/31/24 08:00 05/31/24 08:00 05/31/24 08:00
Physical Exam
Constitutional: Acutely Ill
Eyes: No Conjunctival Hemorrhage and Other (sclera icteric)
Cardiovascular: S1/S2 and Other (tachy)
Pulmonary: Coarse (bilaterally); Negative Wheezes
Gastrointestinal: Soft, Tender (epigastrum) and Non Distended
Extremities: Negative Edema
Skin: Jaundice
Neurological: AO x 3
Objective Data
Lab Data
Lab Results
05/31/24 04:50
05/31/24 04:50
ESR 115 mm/hour (0-20) H 05/29/24 05:19
Estimated Creat Clear 57 ml/min 05/31/24 04:50
Lactic Acid 1.5 mmol/L (0.7-2.0) 05/29/24 05:19
Total Bilirubin 5.5 mg/dl (0.2-1.3) H 05/31/24 04:50
GGT 518 U/L (12-43) H 05/29/24 05:19
AST 32 U/L (14-36) 05/31/24 04:50
ALT 23 U/L (0-35) 05/31/24 04:50
Alkaline Phosphatase 263 U/L (38-126) H 05/31/24 04:50
Most recent labs reviewed.
Micro Results:
05/30/24 09:32 Salmonella/Shigella Culture - Pending
Feces/Stool Campylobacter Culture - Pending
Shiga Toxin Test - Final
No E. coli Shiga Toxin 1 or 2 detected.
05/29/24 09:32 Stool Leukocytes - Final
Feces/Stool
05/29/24 09:32 C. difficile GDH Antigen & Toxins - Final
Feces/Stool Negative for toxigenic C.difficile
- Final
Negative for Norovirus GI and GII.
05/29/24 12:59 Blood Culture - Preliminary
Blood/Venous No Growth in 24 hours- Final report to follow
05/29/24 12:59 Blood Culture - Preliminary
Blood/Venous No Growth in 24 hours- Final report to follow
05/29/24 05:44 Legionella Urinary Antigen - Final
Urine Negative for Legionella pneumophila Serogroup 1 antigen.
A negative result does not rule out the possiblity of
Legionella infection due to other serogroups or species of
Legionella. Clinical correlation is recommended.
Streptococcus pneumoniae Antigen (M - Final
Negative for Streptococcus pneumoniae antigen.
A negative result does not exclude infection with
Streptococcus pneumoniae. Clinical correlation is
recommended.
05/28/24 18:40 Influenza Types A & B (DARLEEN) - Final
Nasal Swab Negative for Influenza A & B, NAAT
Negative results must be combined with clinical observations
and patient history.
Nucleic Acid Amplification test (NAAT)performed on the
[employer] platform.
05/28/24 CT a/p: Mild bowel wall thickening sigmoid , rectum and adjacent mesenteric inflammatory change adjacent to the rectosigmoid colon, consistent with colitis. Colitis is likely infectious or inflammatory. Patchy groundglass opacity at each
lung base. Nodular opacities in each lung base measuring up to 1.1 cm in diameter, as detailed above. Findings may be infectious or related to subsegmental atelectasis, however follow-up chest CT is suggested in 3-6 months to exclude pulmonary
nodules. Mild fatty infiltration of liver.
05/29/24 CXR: No active cardiopulmonary disease.
05/30/24 CXR: There is new hazy pleural-parenchymal airspace disease in the lower right lung which I favor is right middle lobe pneumonia, however, there may be a component of pleural fluid along the fissure on the right.
05/30/[address]: Bilateral multifocal pneumonia. Limited by motion degradation, as described. Pulmonary artery assessment in the lower lobes beyond the pulmonary arterial lobar segments is nondiagnostic. Otherwise, no pulmonary embolism is
identified.
Care Review
Plan reviewed with: Physician (Dr. Panda)
--- NOTE | 2024-05-31 10:17 | CON.GI ---
Addendum entered and electronically signed by Any Santos Do, MD 05/31/24 15:06:
I personally performed a history and physical exam of the patient and discussed management with the resident. I reviewed the resident's note and agree with the documented findings and plan of care HPI/CC.
Cher is a 68yo W with h/o lupus on chronic immunosuppression, ILD and fibromyalgia on chronic opioids who was admitted 05/28 for N/V and diarrhea with SOB. Her grand daughter had fevers and recent viral illness prior. She is being treated for
sepsis from PNA on high flow oxygen. GI consulted for elevated LFTs and diffuse abd pain. She has baseline pain and uses percocet one tab every 6H at home. She does have diarrhea. Her appetite is poor but she is tolerating CLD. Exam vitls AF
tachycardia, 96% on high flow oxygen. obese respiratory effort with labored breathing, mild diffuse TTP, 2+ pitting edema bilaterally. Labs stool studies including norovirus negative. Imaging Abd US post CYY but otherwise normal. CTAP without
contrast shows ? colitis in rectosigmoid area, fatty liver, GOO at basees
Impression
- Sepsis with PNA and respiratory failure
- Elevated LFTs
Suspect from sepsis or DILI
She is s/p CYY in past but choledocholithiasis is another consideration
- N/V and diarrhea with sick contact consistent with viral gastroenteritis
- Fibromyalgia with chronic opioid use
- Chronic immunosuppression
- Fatty liver
- ILD
- Hypothyroidism
- Obesity
- Sweet Syndrome
Recommendations
- Check viral hepatitis A/B/C serologies
- Add mono spot and AMA
- Trend LFTs suspect will improve with improvement sepsis however if does not consider MRI/MRCP (prior CT was without contrast)
- C/w CLD advance as tolerates
- Avoid hepatoxins
Will follow with you
Original Note:
Consultation
-
Date/Time Consultation Requested: 05/31/2024
Date/Time Consultation Performed: 05/31/2024
Requesting Provider: Mane Panda
Performing Provider: Danita Mckeon MD
Reason for Consultation: Colitis and abnormal lab results
Medical History
Chief Complaint / HPI
Chief Complaint: Respiratory distress and abdominal pain
History of Present Illness:
The patient is a 68-year-old pleasant female with a PMH of SLE(on mycophenolate), history of interstitial lung disease, Sweet syndrome, fibromyalgia, hypothyroidism who presented to ER on 05/28/2024 complaining from shortness of breath and mild
epigastric discomfort associated with feeling nauseous and vomiting. The history of presentation was taken from patient and her son at bedside. Her son reported that her mother had an acute onset of nonbloody vomiting on Tuesday morning and
following she started to feel sick. She did not have another episode of vomiting but she stayed in the bed during the weekend. The patient started to have some pain on her upper chest and abdominal area at the weekend. After ER presentation, the
patient developed diarrhea which was loose and dark-colored and her last bowel movement was yesterday and was still loose and dark brown-colored. At admission the patient was obtained a chest CT showing consolidation consistent with pneumonia.
And her abdominal CT showed inflammatory change adjacent to the rectosigmoid colon( consistent with colitis) and mild fatty liver. Her lab results were significant for WBC count of 8.9 with 14% bands, hemoglobin level to 9.8 and low platelet count
to 65. Additionally, her sodium level found low to 123 with normal potassium levels, BUN 31 and creatinine elevated to 1.2 (baseline around 0.8). During her follow-up, it was found her GGT level elevated to 518, increasing direct bilirubin levels
from 1.1 to 3.8, increasing total bilirubin from 1.9 to 5.5, no elevation with ALT and AST levels since the admission. The patient's son also reported that patient still having dark-colored stool diarrhea and the last one was yesterday evening.
No sick contacts, no recent traveling, no new medication was reported. Last dose of CellCept was 1.5 year ago due financial hardship. Last colonoscopy was more than 10 years ago and last endoscopy was a few years ago. Patient and family does not
remember in which hospital they had these scopes but they reported no significant findings with them. Also her son reported having a bile duct stone problem in the past despite having cholecystectomy a while ago.
Past Medical History
Past Medical History: Hypothyroidism and Other (Lupus, fibromyalgia, interstitial lung disease (patient was at 1 point on home oxygen but now off after started on CellCept for lupus), Sweet syndrome)
Past Surgical History: Other (Cholecystectomy, Gynocological (Total abdominal hysterectomy with bilateral salpingo-oophorectomy), Orthopedic (Knee replacement) and Tonsillectomy)
Social History
Tobacco: Former Smoker
Alcohol: None
Drug: None
Personal:
Living: With Family
Family History
Family History: Reviewed & Not Pertinent
Allergies / Home Medications
Allergy/AdvReac Type Severity Reaction Status Date / Time
adhesive Allergy Hives Verified 05/30/24 16:12
aspirin Allergy Anaphylaxis Verified 11/28/19 06:32
azathioprine [From Imuran] Allergy Nausea / Verified 11/28/19 06:32
Vomiting
doxycycline Allergy Nausea / Verified 11/28/19 06:32
Vomiting
iodine [Iodine] Allergy Anaphylaxis Verified 11/28/19 06:32
NSAIDS (Non-Steroidal Allergy Anaphylaxis Verified 11/28/19 06:32
Anti-Inflamma
prochlorperazine Allergy gnashing Verified 11/28/19 06:32
teeth
venom-honey bee Allergy bee Verified 05/30/24 16:12
stings-anaphylaxis
�Medication �Instructions �Recorded
levothyroxine 75 mcg tablet 75 mcg PO DAILY Thyroid 08/21/09
estradiol 1 mg tablet 1 mg PO DAILY Hormonal agent 11/15/11
cholecalciferol (vitamin D3) 50 50 mcg PO DAILY Supplement 05/28/24
mcg (2,000 unit) capsule (Vitamin
D3)
multivitamin 1 tab PO DAILY Supplement 05/28/24
mycophenolate mofetil 500 mg 1,500 mg PO DAILY Lupus 05/28/24
tablet (CellCept)
omega [id number]-fish oil 1,000 mg 1 cap PO DAILY Supplement 05/28/24
(120 mg-180 mg) capsule (Fish Oil)
oxycodone 10 mg tablet 10 mg PO QID Pain 05/29/24
Review of Systems
-
History Source: Patient
Constitutional: Reports Fever and Other (Appears chronically ill)
EENT: Reports No Symptoms
Respiratory: Reports Trouble Breathing and Other (Respiratory distress with wheezing)
Cardiac: Reports No Symptoms
Abdomen/GI: Reports Abdominal Pain and Nausea
: Reports No Symptoms
Musculoskeletal: Reports Other (Generalized weakness)
Skin: Reports No Symptoms
Neurological: Reports Other (Nonfocal grossly)
Vital Signs
Temp Pulse Resp BP Pulse Ox
97.9 F 112 32 138/72 91
05/31/24 08:00 05/31/24 10:00 05/31/24 10:00 05/31/24 10:00 05/31/24 10:00
Physical Exam
Exam
General: Well Developed, Well Nourished, Respiratory Distress and Pain
HEENT: Normocephalic and Anicteric
Respiratory: Wheezes and Rhonchi
Cardiac: S1/S2 and Regular Rhythm
GI: Tender and Other (Pain to palpation around the umbilicus especially on the left side)
Musculoskeletal: No Clubbing, No Cyanosis and No Edema
Skin: Warm
Neuro: Awake, Alert, Oriented and Nonfocal/Grossly Intact
Psych: Calm
Results
WBC 9.8 10^3/uL (4.8-10.8) 05/31/24 04:50
Hgb 7.9 g/dL (12.0-16.0) L 05/31/24 04:50
Hct 23.5 % (37.0-47.0) L 05/31/24 04:50
MCV 90.0 fL (81.0-99.0) 05/31/24 04:50
Plt Count 59 10^3/uL (130-400) L 05/31/24 04:50
Sodium 141 mmol/L (135-145) 05/31/24 04:50
Potassium 4.2 mmol/L (3.5-5.1) 05/31/24 04:50
Chloride 107 mmol/L (98-107) 05/31/24 04:50
Carbon Dioxide 20 mmol/L (22-30) L 05/31/24 04:50
BUN 24 mg/dl (7-17) H 05/31/24 04:50
Creatinine 0.9 mg/dL (0.6-1.0) 05/31/24 04:50
Calcium 8.4 mg/dl (8.4-10.2) 05/31/24 04:50
Total Bilirubin 5.5 mg/dl (0.2-1.3) H 05/31/24 04:50
AST 32 U/L (14-36) 05/31/24 04:50
ALT 23 U/L (0-35) 05/31/24 04:50
Alkaline Phosphatase 263 U/L (38-126) H 05/31/24 04:50
Lipase 139 U/L (23-300) 05/30/24 07:17
Diagnostic Image Results:
Abd US on 05/30/24
FINDINGS:
Transabdominal grayscale ultrasound of the abdomen was obtained.
The liver measures 13.2 cm in length and is diffusely coarse in echotexture consistent with diffuse fatty infiltration of the liver.
There is normal flow in the portal and hepatic veins
The spleen is normal.
There is cholecystectomy
There is no dilatation of the common or intrahepatic ducts.
The common duct measures 4 mm
The kidneys are normal in size contour and echogenicity bilaterally.
There is no hydronephrosis.
The pancreas, upper abdominal aorta and upper inferior vena cava are normal
IMPRESSION: Normal post cholecystectomy abdomen
Abd/Pelvis 05/28/24
IMPRESSION:
1. Mild bowel wall thickening and adjacent mesenteric inflammatory change adjacent to the rectosigmoid colon, consistent with colitis. Colitis is likely infectious or inflammatory.
2. Patchy groundglass opacity at each lung base. Nodular opacities in each lung base measuring up to 1.1 cm in diameter, as detailed above. Findings may be infectious or related to subsegmental atelectasis, however follow-up chest CT is suggested in
3-6 months to exclude pulmonary nodules.
3. Mild fatty infiltration of liver.
Prior GI Procedures:
EGD:
Colonoscopy:
Assessment / Plan
-
Assessment: Ms Guzman is a 68-year-old female who presented to ER complaining from shortness of breath and mild epigastric discomfort associated with feeling nauseous and vomiting on 05/28/2024. The patient has a PMH of history of interstitial lung
disease, Sweet syndrome, fibromyalgia, hypothyroidism and SLE. The patient was started on CellCept about 3 years ago but she stopped taking it about 1.5 year ago due financial hardship. She has been on mycophenolate for many years and her dose
increased to 6 pills daily a few months ago, but the patient could not tolerate it and she kept having her usual dose 3 as 3 pills/daily and denies any side effects with her usual dose. The patient`s symptoms started on last week on Tuesday with
vomiting and following she was feeling sick and started to eat less than normal. She was with her granddaughter with GI illness for a few days. At the weekend she tolerated some oral taking but she has in bed all the time due feeling sick and
weak. She developed shortness of breath and abdominal pain and presented to ER. After admission she developed a dark colored-loose stool. Her chest CT was significant for pneumonia and her abd CT was significant for colitis. During her follow up,
her lab results showed elevated GGT levels to 518, increasing direct bilirubin levels from 1.1 to 3.8, increasing total bilirubin from 1.9 to 5.5, no elevation with ALT and AST levels. Her Abd US was not remarkable for hepatobiliary problems.
Impression
Abdominal Pain
Elevated bilirubin levels with Elevated GGT
Diarrhea
Multifocal PNA complicated with Acute hypoxemic respiratory failure
SLE on mycophenolate
Thrombocytopenia
Plan
#Abdominal Pain likely secondary to Gastroenteritis vs Colitis
-Abd CT on 05/28/24: inflammatory change adjacent to the rectosigmoid colon( consistent with colitis) and mild fatty liver
-Has a recent sick contact recently
-Ongoing abdominal pain and nausea
-Continue clear liquid
#Elevated bilirubin levels with Elevated GGT likely secondary to Sepsis vs Viral infections vs Medications
-s/p Cholecystectomy more than 10 years ago
-Hx of possible CBD stone in the past
-Abd US on 05/30 findings are not consistent with hepatobiliary disease/ not remarkable
-No new medication-Started on antibiotic during hospitalization
-Has a recent sick contact
-GGT 518, increased DB levels from 1.1 to 3.8, increased TB levels from 1.9 to 5.5, ALT and AST Normal, INR N
-MRI/MRCP can be considered if LFT levels do not improve
-Follow up LFTs,GGT, TB, DB daily
-Hepatitis panel was ordered
#Diarrhea likely secondary due gastroenteritis
-C. difficile is negative
-Stool culture: Shiga toxin negative. Salmonella/Campylobacter pending
-Follow up stool culture
-
-
Thank you for consultation and allowing me to participate in the patient's care. Please call the conference services coordinator GI physician during the after hours with any questions or concerns.
[2024-05-31 10:26] LABS: Iron 51 ug/dl (37-170)
[2024-05-31 10:35] LABS: Percent Saturation 26 % (20-50); Total Iron Binding Capacity 191 ug/dl (265-497)
[2024-05-31] MEDS: DECADRON 4 MG IV ×2 (12:35→23:03)
[2024-05-31] MEDS: ATROVENT NEBULES 0.5 MG INH ×2 (13:08→19:28)
[2024-05-31] MEDS: MUCOMYST 10% 2 ML INH ×2 (13:08→19:28)
[2024-05-31 14:57] LABS: Erythrocyte Sed Rate 141 mm/hour (0-20)
--- NOTE | 2024-05-31 15:39 | PTOTSP ---
ST Acute Care Evaluation
Pt currently presents with clinical symptoms consistent with mild oropharyngeal and esophageal dysphagia characterized by prolonged mastication and bolus formation, occasional cough with PO intake of solids, as well as persistent belching s/p
ingestion of liquids. Pt is at an increased risk for aspiration presently due to her current increased oxygen requirements which impact her breathing/swallowing coordination.
Recommendations:
- Once cleared by GI, pt can be upgraded to a SOFT BITE SIZED SOLIDS diet; continue with REGULAR THIN LIQUIDS and medications as tolerated.
- Aspiration and reflux precautions: HOB upright for all PO intake and for at least 60 minutes after PO intake; small frequent meals; small bites/sips; overchew food; slow intake rate; don't over-eat; alternate bites/sips.
- HIGHWAY ENGINEER to f/u re: diet tolerance, compensatory strategy use, and to determine if pt would benefit from an instrumental swallow study.
--- NOTE | 2024-05-31 16:48 | VATNOTE ---
attempted midline left & right. Able to access vein however unable to thread wire in multiple veins on left & right. IR to be consulted.
[2024-05-31] MEDS: LOVENOX 40 MG SC (17:20)
[2024-05-31 17:53] LABS: Glucose - Point of Care 190 mg/dl (70-99)
--- NOTE | 2024-05-31 18:00 | PTCARENOTE ---
0700- Rec'd care of patient. Patient alert and oriented. Drowsy. Anxious. Patient having difficulty talking due to breathlessness. Pulse ox 92% on HFNC 55L 60%. Breathing labored. Lung sounds coarse/rhonchi throughout. Shallow. Tachypneic. BUNN. RT
at bedside. Breathing tx administered. Patient repositioned high in bed. HFNC changed to 55L 40%. Patient able to talk better. Lung sounds unchanged. ST on tele. +BS. Abdomen round/tender. No BM. Appetite poor. Patient educated on aspiration
risk/precaution. Speech consult placed. Purewick in place for urinary incontinence. Output orange colored. Peripheral INTs flushed and capped.
1200- Assessment unchanged. Lab orders placed by . Attempted to draw labs; unsuccessful. Phlebotomy contacted; also unsuccessful. Risk Adjustment Specialist contacted for central/midline order. ECHO completed.
1600- Patient cleared by speech therapy to continue with clears. No major changes in assessment. Patient tired. Attempted BiPAP mask. Patient tolerated roughly 45 minutes. VAT at bedside to attempt Midline placement. Unsuccessful. IRAD consult
placed for central line.
[2024-05-31] MEDS: NOVOLOG FLEXPEN-LOW RESISTANCE 1 UNITS SC (18:02)
[2024-05-31] MEDS: MUCINEX PO (19:42)
--- NOTE | 2024-05-31 20:00 | PTCARENOTE ---
Received pt via handoff. Pt AAOx3 able to MENA, afebrilen in a very cheerful mood. Sinus tach, pulses present. 99% on highflow, crackles throughout. Hypoactive bowel sounds in all 4Q.. Purewick in place draining clear yellow urine. Antibiotics
running. Son and daughter at bedside.
[2024-05-31 21:22] LABS: Glucose - Point of Care 210 mg/dl (70-99)
[2024-05-31 21:29] LABS: Hepatitis B Surface Antigen Negative (Negative)
[2024-05-31 21:47] LABS: Hepatitis A Antibody, Total Positive (Negative); Hepatitis B Core Ab, Total Negative (Negative); Hepatitis C Antibody Negative (Negative)
[2024-05-31 22:39] LABS: Hepatitis A IgM Antibody Negative (Negative)
[2024-06-01] VITALS (18 sets, daily range): BP systolic 92–145; BP diastolic 54–99; BMI 34.5
[2024-06-01] MEDS: MUCOMYST 10% 2 ML INH ×2 (00:28→05:29)
[2024-06-01] MEDS: XOPENEX 1.25 MG INHALANT SOLUTION INH ×4 (00:29→17:21)
[2024-06-01] MEDS: ROXICODONE 10 MG PO ×4 (03:31→20:07)
[2024-06-01] MEDS: MAXIPIME 2000 MG IV ×3 (03:31→18:07)
[2024-06-01] MEDS: STERILE WATER FOR INJECTION 10 ML IV ×3 (03:31→18:08)
--- NOTE | 2024-06-01 04:00 | PTCARENOTE ---
All systems reassessed. Hygiene performed, pt up able to use commode. Call vang and family at bedside.
--- NOTE | 2024-06-01 05:18 | PTCARENOTE ---
No change in pt's status, call vang at bedside.
[2024-06-01] MEDS: ATROVENT NEBULES 0.5 MG INH ×3 (05:30→17:22)
[2024-06-01] MEDS: SYNTHROID 75 MCG PO (06:25)
--- NOTE | 2024-06-01 07:26 | W.PN.INTV ---
Today's Communication / Plan
Recommendations
Improving, now on 2L NC
Can likely de-escalate abx per ID, culture negative to date
Transition IV steroids to PO taper
Repeat CXR in AM
Encouraged OOB, PT/OT, IS
Transfer to tele, we will follow briefly
Assessment
-
Patient is a 68-year-old female with past medical history significant for DVT, lupus on cellcept, prior ILD, Sweet syndrome, fibromyalgia, hypothyroid presenting to emergency department with 5 days of nausea/vomiting, epigastric pain, loose
stools and shortness of breath. She also noted Tmax at home 103.6F. In ER, she was tachypneic (RR >20), tachycardic (HR 125), sat 94% on RA, BP 129/78. Denies sick contacts and Influenza/COVID testing negative. Other abnormal labs include: WBC
8.9 with 14% bands, Hb 9.8 Plt 65, Na 123 K 3.6 Bicarb 13 w/ AG of 18. She had slight elevation in LFTs, TB 2.8 Alk phos of 393.
A CT of the abdomen pelvis showed small patchy consolidation within the bilateral lower lobes, trace effusions likely reactive multifocal infection. Adm to floors on 05/29/24 for possible GI vs Pulm infection, placed on abx IV.
SOFTWARE CONFIGURATION ENGINEER called overnight on 05/30/24 for RR in 40s, SOB--resp distress on 4L, placed on HFNC. CXR showing interval increase in opacities. Transferred to ICU for further management.
Acute hypoxic respiratory failure on high flow nasal cannula
Multifocal PNA
Nausea vomiting/epigastric pain/loose stools
Fever
Bandemia
Thrombocytopenia
AGMA 18
Anemia
Conditions present prior to admission
Hypothyroidism.
HLD
Sweet syndrome.
Lupus on Cellcept, hx of pleurisy
Interstitial lung disease followed by Dr. Gracia but has not f/u in many years
Severe restrictive lung disease, bronchiectasis-wears O2 2l via n/c
Last PFT 2008, TLC 29%
hx nephritis during childhood and at age 16
Fibromyalgia.
Migraines.
Cholecystectomy.
HODAN-BSO
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
Right total knee arthroplasty 07/19.
Scleritis/episcleritis
Obesity BMI 34.8
Plan
No current signs of metabolic encephalopathy or MS changes/following commands
Denies pain at this time.
Pain/sedation: PRN, resumed on home pain meds, hold for sedation
RASS goals: 0
Hemodynamically stable, not requiring pressors.
Cardiac history reviewed--none
Prior ECHO reviewed indicating stable function
proBNP elevated, repeat ECHO showing stable findings
Lasix given x 1, follow UO, consideration for continued treatment if needed but can assess PRN
Monitor on telemetry
Oxygen needs: remains on HFNC, 55LPM, 40%--improved now on 2L NC
Prior history of lung disease: ILD, RLD-severe, last TLC 29%
Supplemental O2 as indicated to maintain sats > 89%
CXR/CT reviewed indicating large R sided consolidation
Airway clearance continued PRN
ABG 7.46/26/77/18.5
Prednisone taper
Encouraged PO intake, better today
Site Auditor recommendations
Aspiration precautions, HOB > 30 degrees
Speech therapy eval
GI prophylaxis if indicated for mechanical ventilation >48 hours, prior history of GERD, stress ulcer formation in the critically ill
Creat at baseline, no history of renal disease
Void trials
Follow urine output, critical I/Os
Replete electrolytes as needed
Acid/base status: AGMA + NAGMA, likely related to infection and GI losses
Repletion wtih bicarb
Fever and increased WBC on presentation, PNA noted r/o aspiration
Started on empiric antibiotics, can likely de-escalate
Cultures sent/negative thus far to date
Follow fever trend, WBC count
CBC stable, no signs of bleeding or coagulopathy.
Cytopenia noted, observation
Lupus on cellcept, being held--add on IV steroids given hypoxemia
DVT prophylaxis as assessed based on risk, including mechanical SCDs
Can transfuse if indicated for Hb <7, plt < 10
No prior h/o diabetes --BG slightly elevated
Monitor accuchecks PRN/SS coverage if needed
H/o hypothyroidism, can continue on home synthroid dose
We discussed code status with family, given her baseline lung history, she is at risk for prolongation on the vent
She is full code
Diagnostic Data
Chest X-Ray: 05/30/24- Slight interval increase in opacification of the right lower lung, and this likely represents pneumonia. Airspace opacity within the left lower lung, compatible with pneumonia and/or atelectasis. Evidence for a small left
pleural effusion, stable.
CT Scan: CHEST 05/30/24- Limited by motion degradation, as described. Pulmonary artery assessment in the lower lobes beyond the pulmonary arterial lobar segments is nondiagnostic. Otherwise, no pulmonary embolism is identified. Bilateral multifocal
pneumonia. The examination was performed after-hours on an emergency basis, with initial preliminary interpretation provided by [facility].
Echo: 08/13/23- Normal left ventricular size, wall thickness and systolic function. No regional wall motion abnormalities are seen. LV ejection fraction is 60-65% by Poe's method of discs. Normal diastolic function. Normal right ventricular size
and function. Mitral valve opens normally. No mitral stenosis. Trace mitral regurgitation. Thickened trileaflet aortic valve with normal leaflet excursion. Aortic valve sclerosis. No aortic stenosis. No aortic regurgitation is seen. Tricuspid valve
opens normally. Mild tricuspid regurgitation. Estimated pulmonary artery pressure of 25-30 mmHg. Assuming a right atrial pressure of 3 mmHg.Compared to prior study 02/14/2018 aortic valve sclerosis is noted.
PFT's: 2008- FVC is 0.75 or 25%, FEV1 is 0.59 or 24%, Ratio of 78, FEF 25-75 is 0.56 or 23%. There is a 77% improvement in the FEF 25-75 following bronchodilator.
TLC is 1.29 or 29%, Diffusing capacity is 4.85 or 22% -- Severe mixed Obstructive and Restrictive Lung Disease with severe gas exchange defect.
Reports and relevant images were personally reviewed.
Critical Care time 41 mins -- The patient is admitted for acute critical illness for the treatment of vital organ failure and/or prevention of further life-threatening conditions. Total care includes time spent in review of history, physical exam,
medications, hemodynamic/ventilator parameters, laboratory data, imaging and discussion with house staff, pharmacy, respiratory therapy, fuel cell repairer, and nursing. Additional time spent reviewing case with medical language specialist and reviewing plan of care
with family.
Subjective Dataa
Subjective Data
Date of Service:
Date of Service: June 01, 2024
Chief Complaint: Sailing Officer Follow Up
Subjective:
Improved significantly overnight, on 2L NC
Sitting in chair, feels better
Objective Data
Data Reviewed
Vital Signs / I&O / Oxygen:
Vital Signs
Temp Pulse Resp BP Pulse Ox
98.2 F 97 21 132/66 96
06/01/24 07:04 06/01/24 06:00 06/01/24 06:00 06/01/24 06:00 06/01/24 06:00
Intake and Output
05/31/24 06/01/24 06/02/24
06:59 06:59 06:59
Intake Total 730 / 730 490 / 490
Output Total 1150 / 1150 550 / 550
Balance -420 / -420 -60 / -60
SaO2 96
Nasal Cannula flow liters per 55
minute
Physical Exam
General: Comfortable and Other (NAD)
HEENT: Normocephalic, Anicteric and Moist Mucous Membranes
Cardiovascular: S1-S2 and Regular Rhythm
Respiratory: Clear and Non-Labored Respirations
GI: Soft, Non Distended and Non Tender
Neurology: Awake, Alert, Oriented and No Motor Deficits
Skin: Warm, Dry and Good Color
Labs/Micro/Reports
Microbiology
05/29/24 12:59 Blood/Venous Blood Culture - Preliminary
No Growth in 48 hours- Final report to follow
05/29/24 12:59 Blood/Venous Blood Culture - Preliminary
No Growth in 48 hours- Final report to follow
05/30/24 09:32 Feces/Stool Salmonella/Shigella Culture - Preliminary
Culture in Progress
05/30/24 09:32 Feces/Stool Campylobacter Culture - Preliminary
Culture in Progress
05/30/24 09:32 Feces/Stool Shiga Toxin Test - Final
No E. coli Shiga Toxin 1 or 2 detected.
05/29/24 09:32 Feces/Stool Stool Leukocytes - Final
05/29/24 09:32 Feces/Stool C. difficile GDH Antigen & Toxins - Final
Negative for toxigenic C.difficile
05/29/24 09:32 Feces/Stool - Final
Negative for Norovirus GI and GII.
05/29/24 05:44 Urine Legionella Urinary Antigen - Final
Negative for Legionella pneumophila Serogroup 1 antigen.
A negative result does not rule out the possiblity of
Legionella infection due to other serogroups or species of
Legionella. Clinical correlation is recommended.
05/29/24 05:44 Urine Streptococcus pneumoniae Antigen (M - Final
Negative for Streptococcus pneumoniae antigen.
A negative result does not exclude infection with
Streptococcus pneumoniae. Clinical correlation is
recommended.
[2024-06-01 07:53] LABS: Glucose - Point of Care 222 mg/dl (70-99)
--- NOTE | 2024-06-01 08:00 | PTCARENOTE ---
Pt rec'd from previous RN in bed, AOx3 very pleasant and conversant, highflow 02 at 55L/40%, sats stable....ST on tele in low 100s, transitioned to midflow nasal cannula at 6L by RT....tolerated well and eventually weaned to room air. See flowsheet
for documentation. Pt tolerating CLD, assisted to bedside commode for attempt at BM, no success but did urinate. Labs drawn by MONSERRAT Lujan with US guidance, new PIV place in right AC, pt now seated in chair, conversing with family. No complaints at
this time, states 'I feel like a new woman.' MDs rounding at bedside, Plan discussed in rounds, diet advanced to FLD, medications and assessment as documented. See worklist. Safe environment maintained.
[2024-06-01] MEDS: THERAGRAN 1 TABLET PO (08:08)
[2024-06-01] MEDS: ESTRACE 1 MG PO (08:08)
[2024-06-01] MEDS: NOVOLOG FLEXPEN-MODERATE RESISTANCE 3 UNITS SC ×2 (08:08→16:29)
[2024-06-01] MEDS: MUCINEX 600 MG PO (08:08)
--- NOTE | 2024-06-01 08:45 | W.PN.HOSP.TC ---
Today's Communication/Plan
-
CW IV abx
Advance diet to full liquids
Follow labs (pending from this am)
Assessment / Plan
Assessment / Plan
IMPRESSION:
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
breath with mild O2 requirement is satting 94% on room air, GHAZAL has no cough but reports pleuritic chest pain and some difficulty breathing.
CT scan of the abdomen pelvis revealed patchy consolidation within the bilateral lower lobes related to multifocal infection unlikely, trace bilateral effusions also noted. The abdomen had no significant findings but was consistent with
gastroenteritis. Labs are notable for bandemia to 14%, bicarb of 13 with combination anion gap and non-anion gap metabolic acidosis and mild DAYRON. There is elevated total bilirubin and alk phos with normal LFTs.
PLAN:
#Sepsis-GI source versus pulmonary
Resolved fever. Hemodynamically stable. Lactic acid was normal on admission.
Continue with treatment of infectious source and supportive treatments.
#Acute colitis-patient presented with GI symptoms including nausea abdominal pain and not much diarrhea. She has CT evidence of colitis involving the rectosigmoid colon. No complication of abscess or perforation. Patient is immunosuppressed. C.
difficile is negative so far. Few white cells in stools noted. Shiga toxin negative. Salmonella/Campylobacter pending.. Continue with cefepime.
Resolved GI symptoms. Tolerating clear liquid diet. Advance to full liquid diet.
(Interval history-granddaughter apparently had an acute short-lived episode of GI illness and she was with the patient at home. Potential changes with the health was GI track with nausea vomiting abdominal pain and small amount loose stools. She
then had respiratory symptoms or shortness of breath. Denies any dysphagia. Denies aspiration during her emesis.)
#Shortness of breath and associated acute hypoxic respiratory failure
-She rapidly progressed with minimal symptoms to significant shortness of breath and also from requiring 2 L to now high flow oxygen.
-Chest x-ray blossomed very quickly from no findings to bilateral airspace disease. Chest CT yesterday shows multifocal pneumonia.
-Patient has a history of ILD
-Unclear if she had aspiration or this is multifocal infectious pneumonia or developing ARDS
-Her weight since admission has been stable. Her BNP was only 1600s. No evidence of acute [place]. Doubt heart failure but will keep her negative. Lasix as needed; weight today 2 pounds lower. Echocardiogram shows normal EF, no significant valvular
heart disease other than mild mitral regurgitation, mild TR.
- Steroids per pulmonary
#Abnormal liver enzymes - Elevated tbili and alkpho with normal transaminases suggestive of cholestatic pattern. s/p seven, no biliary dilation.
- ggt is up.
- trend lfts for now
- legionella ag negative.
-ultrasound of the abdomen shows no biliary pathology
-With thrombocytopenia and anemia rule out hemolytic process elevated bilirubin which is creeping up. Hemolysis panel pending. Elevated LDH noted.
-Appreciate GI input
#Lupus - No skin rash
-Hold CellCept with active infection
-Check immunoglobulin panel and transfuse IVIG if less than 500
#Thrombocytopenia and anemia. Rule out hemolytic process.
-Schistocytes per hematology.
-Follow hemolysis labs.
#DAYRON suspect prerenal. Improved creatinine from 1.2-0.7 send IV fluid support. Labs from today pending
#Metabolic acidosis-
-Elevated anion gap on admission noted may be related to DAYRON.
-Improved anion gap and bicarb.
-ABG showed alkalosis yesterday which I suspect may be secondary to tachypnea and respiratory alkalosis
-Continue to follow
Discussed with at bedside
Discussed with pot puncher
Poor IV access. Ongoing evaluation for midline access.
DVT PPX - lovenox sq
Code status - Full Code
Disposition-if remains improved and requires less than 6 L of oxygen consider transfer out of ICU
Total time spent on today's encounter was 52 minutes which included time spent in counseling the patient/family regarding diagnosis and treatment plan as listed above, goals of care, and symptom management. Case was discussed with nursing staff,
specialists, and care coordinators/case management. All labs and imaging personally reviewed by me. Remainder the time spent in detailed review of previous records, lab data, imaging, and other medical provider documentation.
Anticipated Discharge: > 48 hours
Subjective/Interval History
-
Date of Service: June 01, 2024
Patient sitting in the chair feeling much improved.
She is off of high flow oxygen now currently on 6 L via nasal cannula.
No further nausea or vomiting. Resolved abdominal pain. No diarrhea.
Shortness of breath is improved. No chest pain. No fevers no chills.
Objective Data
-
Labs:
Laboratory Results
06/01/24
06:00
WBC Pending
Hgb Pending
Hct Pending
Plt Count Pending
Sodium Pending
Potassium Pending
Chloride Pending
Carbon Dioxide Pending
BUN Pending
Creatinine Pending
Glucose Pending
Calcium Pending
Total Bilirubin Pending
AST Pending
ALT Pending
Alkaline Phosphatase Pending
Vital Signs:
Vital Signs
Temp Pulse Resp BP Pulse Ox
98.2 F 95 18 132/64 97
06/01/24 07:04 06/01/24 07:00 06/01/24 07:00 06/01/24 07:00 06/01/24 07:55
I&O
05/31/24 06/01/24 06/02/24
06:59 06:59 06:59
Intake Total 730 / 730 490 / 490
Output Total 1150 / 1150 550 / 550 250 / 250
Balance -420 / -420 -60 / -60 -250 / -250
Review of Systems
-
Neuro: Denies Dizzy
Physical Exam
-
General: No Apparent Distress
Respiratory: Crackles (few in right lower zone) and Non Labored Respirations; Negative Wheezes or Accessory Resp Muscle Use
Cardiac: Regular Rhythm, S1/S2 and Tachycardic
GI: Soft, Nontender, Nondistended and Normal Bowel Sounds
Neuro: AO x 3
Psych: Calm
Data Reviewed
-
Medical Tests (Nuc Med, Echo etc): Report Reviewed by me (ECHO)
Labs: Labs Reviewed by me
--- NOTE | 2024-06-01 08:52 | W.PN.INTV ---
Today's Communication / Plan
Recommendations
As above
Assessment
-
68-year-old female with pmhx significant for lupus on Cellcept, ILD, Sweet syndrome, fibromyalgia on oxycodone, hypothyroidism, remote history of DVT presenting to the ED with sepsis, likely secondary to pneumonia vs colitis admitted to the ICU with
increased shortness of breath requiring high flow oxygen.
# Acute hypoxemic respiratory failure
- Patient had increased shortness of breath, work of breathing and worsening hypoxemia 05/30/24 evening. Was on 4L oxygen, required increased oxygen needs, currently on high flow nasal cannula 55L FiO2 40%. Apparently, patient initially refused
BiPAP. On arrival patient had bicarb 13, mixed anion and non-anion gap metabolic acidosis. ABG (05/31/24) 7.46/26/77/18.5, now has respiratory acidosis. Bicarb trending up likely in the setting of less GI loss.
- Chest CT scan 05/30/24: Dense consolidation occupying most of the left lower lobe, consistent with pneumonia. Right middle lobe pneumonia. Patchy airspace opacities in the right lower lobe and small patchy opacities in the upper lobes, consistent
with pneumonia. No evidence of pulmonary embolism.
Patient is on broad spectrum antibiotics (cefepime and azithromycin) for pneumonia.
- BNP elevated at 1600 (baseline unknown). Trop negative. Echo last year EF 60-65%, aortic valve sclerosis, trace MR. Patient does not look volume overloaded, imaging findings do not show evidence of heart failure. Patient is not oliguric, received
one dose of IV lasix 05/30/24. Repeat echo yesterday showed EF 55 to 60%, mild MR, mild TR, pulmonary artery pressure 36 and right atrium pressure 3. Overall no significant change from prior echo last year.
- COVID, flu negative. Procal elevated at 17=6.94. Sputum culture ordered but not obtained yet.
- Unclear whether underlying ILD is contributing to current process. Patient got one dose of hydrocortisone yesterday. Denies progression of any rheumatologic symptoms.
- Patient is feeling much better today, not in respiratory distress, off high flow oxygen, now on 2L oxygen.
# Hypokalemia
- Likely secondary to poor oral intake and GI loss
# Sepsis
- SIRS positive (tachycardia, tachypnea, fever, band cells)
- Likely due to pneumonia vs colitis
- Patient is on broad spectrum antibiotics (cefepime and azithromycin)
- Blood culture neg, stool culture neg
# Colitis
- Patient had nausea, vomiting, epigastric pain, loose stools upon admission. Not currently feeling nauseous/vomiting.
- Norovirus neg, C diff neg, stool wbcs few, stool culture neg
# Bicytopenia, thrombocytopenia and anemia
- Baseline counts unclear. Patient does have a history fo lupus which could be contributing.
- No active bleeding, no coagulopathy.
- Cellcept is held in the setting of active infection.
- Normocytic anemia, likely 2/2 chronic disease
- Vit B12, folate normal.
- Retic wnl, LDH elevated, haptoglobin pending.
# Hyperbilirubinemia, direct
- Etiology unclear, likely 2/2 sepsis vs medication adverse effect vs hepatitis
- AST ALT wnl, Alk Phos and total bilirubin elevated, downtrending today.
- Patient has a history of cholecystectomy. Abdominal US shows fatty liver, no CBD dilation.
- Viral hepatitis panel negative
Conditions present prior to admission
Lupus on Cellcept
Hypothyroidism
Sweet syndrome
Interstitial lung disease
Fibromyalgia on Oxycodone
Severe restrictive lung disease -- Last PFT 2008, TLC 29%
DVT
Afib? -- not on any medications
Shingles
Cholecystectomy
SBO
HODAN-BSO
Laparotomy for mesenteric cyst removal
Right total knee arthroplasty
Obesity
Plan
Awake, alert, oriented. RASS 0. Patient is on home dose oxycodone for pain management, not complaining of pain. Continue Tylenol and Dilaudid as needed.
Hemodynamically stable, not requiring pressors. Sinus tachycardia. Continue to monitor rate and rhythm.
Repeat echo yesterday showed EF 55 to 60%, mild MR, mild TR, pulmonary artery pressure 36 and right atrium pressure 3. Overall no significant change from prior echo last year. No indication for diuresis at this time. Outpatient cardiology follow-up
is recommended. Continue to monitor I/Os, weight.
Currently on mid flow nasal cannula (2 L). Wean oxygen as able, maintain sats >92%.
Continue duonebs, acapella and spirometry. Can discontinue Mucomyst. Obtain sputum culture if able. Will consider repeat chest x-ray tomorrow morning.
Continue antibiotics for pneumonia. Can consider transition to p.o. antibiotics and narrowing down.
Given patient's history of ILD, started steroids for possible flare. Transition to prednisone 40 daily today and continue to taper over the next few days. Monitor accuchecks PRN if needed.
Patient is tolerating clear liquid diet. Can consider advancing diet to soft bite-size solids.
Patient is at risk of aspiration. Aspiration and reflux precautions, HOB > 30 degrees.
Creat at baseline, no history of renal disease. Follow urine output, critical I/Os. Replete potassium.
Continue antibiotics for pneumonia. Can consider transition to p.o. antibiotics and narrowing down.
Continue to monitor blood counts. No active bleeding. Will continue to hold Cellcept. Transfuse if Hb <7 or active bleeding.
DVT prophylaxis Lovenox. Can consider discontinuing if patient is OOB.
Continue levothyroxine for hypothyroidism. Blood sugars have been high (more than 200) on steroids. Will start Lantus 5 units today and monitor glucose levels.
Patient is stable for downgrade from the ICU to telemetry.
Patient's family at bedside, discussed treatment plans and answered all questions.
Subjective Dataa
Subjective Data
Date of Service:
Date of Service: June 01, 2024
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
Review of Systems
General: Fever (n) and Bleeding (n)
HEENT: Dysphagia (n)
Cardiopulmonary: Dyspnea (n), Cough (n), Sputum Production (n), Wheezing (n), Chest Pain (n) and Edema (n)
GI: Abdominal Pain (mild), Nausea (n), Vomiting (n) and Diarrhea (n)
Neuro: Headache (n) and Confused (n)
Objective Data
Data Reviewed
Vital Signs / I&O / Oxygen:
Vital Signs
Temp Pulse Resp BP Pulse Ox
98.2 F 95 18 132/64 97
06/01/24 07:04 06/01/24 07:00 06/01/24 07:00 06/01/24 07:00 06/01/24 07:55
Intake and Output
05/31/24 06/01/24 06/02/24
06:59 06:59 06:59
Intake Total 730 / 730 490 / 490
Output Total 1150 / 1150 550 / 550 250 / 250
Balance -420 / -420 -60 / -60 -250 / -250
SaO2 97
Nasal Cannula flow liters per 6
minute
Physical Exam
General: Comfortable and Fever (n)
HEENT: Normocephalic
Cardiovascular: S1-S2, Regular Rhythm, Murmur (n), Peripheral Edema (n) and Other (Sinus tachycardia)
Respiratory: Crackles (Much better than yesterday, limited to right lung base.), Non-Labored Respirations and Accessory Resp Muscle Use (n)
GI: Soft, Non Distended, Non Tender and Normal Bowel Sounds
Neurology: Awake, Alert, Oriented and AO x 3
Skin: Warm, Good Color and Bruising (n)
Labs/Micro/Reports
Microbiology
05/29/24 12:59 Blood/Venous Blood Culture - Preliminary
No Growth in 48 hours- Final report to follow
05/29/24 12:59 Blood/Venous Blood Culture - Preliminary
No Growth in 48 hours- Final report to follow
05/30/24 09:32 Feces/Stool Salmonella/Shigella Culture - Preliminary
Culture in Progress
05/30/24 09:32 Feces/Stool Campylobacter Culture - Preliminary
Culture in Progress
05/30/24 09:32 Feces/Stool Shiga Toxin Test - Final
No E. coli Shiga Toxin 1 or 2 detected.
05/29/24 09:32 Feces/Stool Stool Leukocytes - Final
05/29/24 09:32 Feces/Stool C. difficile GDH Antigen & Toxins - Final
Negative for toxigenic C.difficile
05/29/24 09:32 Feces/Stool - Final
Negative for Norovirus GI and GII.
05/29/24 05:44 Urine Legionella Urinary Antigen - Final
Negative for Legionella pneumophila Serogroup 1 antigen.
A negative result does not rule out the possiblity of
Legionella infection due to other serogroups or species of
Legionella. Clinical correlation is recommended.
05/29/24 05:44 Urine Streptococcus pneumoniae Antigen (M - Final
Negative for Streptococcus pneumoniae antigen.
A negative result does not exclude infection with
Streptococcus pneumoniae. Clinical correlation is
recommended.
--- NOTE | 2024-06-01 09:02 | W.PN.ONC2 ---
Today's Communication / Plan
-
.
Impression
Impression
b/l multifocal PNA/sepsis/respiratory failure
elevated LFTs
possible gastroenteritis
normocytic anemia, elevated ESR so suspect component of inflammation and dilution with IVF on sepsis protocol. peripheral blood smear reviewed by Dr. Parra 05/31 failed to show any atypical forms. MUSTAPHA negative
acute thrombocytopenia
normal CBC in November 2023
SLE on chronic immunosuppression with cellcept
ILD
Plan
Plan
Hold cellcept for now
f/u Retic, haptoglobin,
monitor for bleeding, check heme stool
avoid nsaids, anticoagulation, antiplatelets if platelets <50,000
transfuse Hgb <7g/dL or as needed for sxs anemia
repeat CT chest 3-6 months with PCP to exclude pulmonary nodules
Subjective/Objective
Subjective
no new complaints
improving O2 requirements
OOB -> on visit today
Vital Signs:
Vital Signs
Temp Pulse Resp BP Pulse Ox
98.2 F 95 18 132/64 97
06/01/24 07:04 06/01/24 07:00 06/01/24 07:00 06/01/24 07:00 06/01/24 07:55
Lab Results:
Laboratory Data
WBC 9.8 10^3/uL (4.8-10.8) 05/31/24 04:50
Hgb 7.9 g/dL (12.0-16.0) L 05/31/24 04:50
Plt Count 59 10^3/uL (130-400) L 05/31/24 04:50
eGFR > 60.00 05/31/24 04:50
Physical Exam
HEENT: Moist Mucous Membranes; No Jaundice
Cardiology: Normal Sinus Rhythm
Pulmonary: Rhonchi
GI: Soft and Other (LLQ/umbilicus TTP)
Extremities: Pulses Present; No Edema
Orders
Orders
Orders From Last 24 Hours
05/31/24 09:53
Add On- LAB Routine
06/01/24 06:00
MUSTAPHA Polyspecific GEL IN AM
CRP [C-Reactive Protein] IN AM
ESR [Erythrocyte Sed Rate] IN AM
Immunoglobulin Panel IN AM
Reticulocyte Count IN AM
--- NOTE | 2024-06-01 10:07 | W.PN.ID1 ---
Date of Service
Date of Service: June 01, 2024
Today's Communication
Continue cefepime/azithromycin.
Assessment / Plan
# Immunocompromise host: SLE on mycophenolate
# Fever - resolved
# Acute hypoxemic respiratory failure improving with decrease oxygen requirement
# Multifocal PNA
- Chest CT: no PE
- Continue cefepime (d3)
- Change IV to po azithromycin (d4 of 7)
- On prednisone, per Pulm.
-Follow 02 status.
# Gastroenteritis
- Recent Exposure to granddaughter with GI illness
- Recent N/V/D
- CT a/p mild bowel wall thickening sigmoid, rectum
- ABD US unremarkable GB
- C. diff neg.
- norovirus PCR neg
- Stool cx pending.
# Acute thrombocytopenia
- Hem/Onc following
# Hyperbilirubinemia
- GI following
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
SLE on mycophenolate
History of interstitial lung disease
History of Sweet syndrome
Hypothyroidism
Fibromyalgia
hx SBO x2
Cholecystectomy
HODAN/BSO
Right Total knee replacement
Chief Complaint
-: Pneumonia and Other (colitis)
Subjective / Review of Systems
Feels much improved today. SOB better.
Epigastric pain better.
Vital Signs / Physical Exam
Vital Signs
Vital Signs
Temp Pulse Resp BP Pulse Ox
98.2 F 95 18 132/64 96
06/01/24 07:04 06/01/24 07:00 06/01/24 07:00 06/01/24 07:00 06/01/24 09:24
Physical Exam
Constitutional: No Acute Distress and Comfortable
Eyes: No Conjunctival Hemorrhage
Cardiovascular: Regular Rate and S1/S2
Pulmonary: Coarse
Gastrointestinal: Soft, Non Tender, Non Distended and Normal Bowel Sounds
Extremities: Edema
Neurological: AO x 3
Objective Data
Lab Data
ESR 141 mm/hour (0-20) H 05/31/24 04:50
Estimated Creat Clear 57 ml/min 05/31/24 04:50
Lactic Acid 1.5 mmol/L (0.7-2.0) 05/29/24 05:19
Total Bilirubin 5.5 mg/dl (0.2-1.3) H 05/31/24 04:50
GGT 518 U/L (12-43) H 05/29/24 05:19
AST 32 U/L (14-36) 05/31/24 04:50
ALT 23 U/L (0-35) 05/31/24 04:50
Alkaline Phosphatase 263 U/L (38-126) H 05/31/24 04:50
Most recent labs reviewed.
Micro Results:
05/29/24 12:59 Blood Culture - Preliminary
Blood/Venous No Growth in 48 hours- Final report to follow
05/29/24 12:59 Blood Culture - Preliminary
Blood/Venous No Growth in 48 hours- Final report to follow
05/30/24 09:32 Salmonella/Shigella Culture - Preliminary
Feces/Stool Culture in Progress
Campylobacter Culture - Preliminary
Culture in Progress
Shiga Toxin Test - Final
No E. coli Shiga Toxin 1 or 2 detected.
05/29/24 09:32 Stool Leukocytes - Final
Feces/Stool
05/29/24 09:32 C. difficile GDH Antigen & Toxins - Final
Feces/Stool Negative for toxigenic C.difficile
- Final
Negative for Norovirus GI and GII.
05/29/24 05:44 Legionella Urinary Antigen - Final
Urine Negative for Legionella pneumophila Serogroup 1 antigen.
A negative result does not rule out the possiblity of
Legionella infection due to other serogroups or species of
Legionella. Clinical correlation is recommended.
Streptococcus pneumoniae Antigen (M - Final
Negative for Streptococcus pneumoniae antigen.
A negative result does not exclude infection with
Streptococcus pneumoniae. Clinical correlation is
recommended.
05/28/24 18:40 Influenza Types A & B (DARLEEN) - Final
Nasal Swab Negative for Influenza A & B, NAAT
Negative results must be combined with clinical observations
and patient history.
Nucleic Acid Amplification test (NAAT)performed on the
[employer] platform.
05/28/24 CT a/p: Mild bowel wall thickening sigmoid , rectum and adjacent mesenteric inflammatory change adjacent to the rectosigmoid colon, consistent with colitis. Colitis is likely infectious or inflammatory. Patchy groundglass opacity at each
lung base. Nodular opacities in each lung base measuring up to 1.1 cm in diameter, as detailed above. Findings may be infectious or related to subsegmental atelectasis, however follow-up chest CT is suggested in 3-6 months to exclude pulmonary
nodules. Mild fatty infiltration of liver.
05/29/24 CXR: No active cardiopulmonary disease.
05/30/24 CXR: There is new hazy pleural-parenchymal airspace disease in the lower right lung which I favor is right middle lobe pneumonia, however, there may be a component of pleural fluid along the fissure on the right.
05/30/[address]: Bilateral multifocal pneumonia. Limited by motion degradation, as described. Pulmonary artery assessment in the lower lobes beyond the pulmonary arterial lobar segments is nondiagnostic. Otherwise, no pulmonary embolism is
identified.
Care Review
Plan reviewed with: Physician (Dr. Panda)
[2024-06-01 10:36] LABS: Hematocrit 21.7 % (37.0-47.0); Hemoglobin 7.4 g/dL (12.0-16.0); Mean Corp Hgb Conc. 34.1 g/dL (33.0-37.0); Mean Corpuscular Hgb 30.7 pg (27.0-31.0); Mean Platelet Volume 12.3 fL (7.4-10.4); Platelet Count 74 10^3/uL (130-400); Red Blood Cell Count 2.41 10^6/uL (4.20-5.40); Red Cell Dist. Width 14.8 % (11.5-14.5); White Blood Cell Count 11.4 10^3/uL (4.8-10.8)
[2024-06-01 10:46] LABS: Erythrocyte Sed Rate 141 mm/hour (0-20)
[2024-06-01] MEDS: LANTUS 0.05 UNITS SC (10:48)
[2024-06-01] MEDS: NOVOLOG FLEXPEN-MODERATE RESISTANCE 5 UNITS SC (10:58)
[2024-06-01 11:02] LABS: Glucose - Point of Care 251 mg/dl (70-99)
[2024-06-01 11:08] LABS: ALT (SGPT) 21 U/L (0-35); AST (SGOT) 27 U/L (14-36); Alkaline Phosphatase 244 U/L (38-126); Blood Urea Nitrogen 30 mg/dl (7-17); Calcium 8.9 mg/dl (8.4-10.2); Carbon Dioxide 21 mmol/L (22-30); Chloride 105 mmol/L (98-107); Estimated Creatinine Clearance 73 ml/min; Glucose 221 mg/dl (70-99); Potassium 3.6 mmol/L (3.5-5.1); Sodium 140 mmol/L (135-145); Total Bilirubin 2.7 mg/dl (0.2-1.3); Total Protein 5.7 g/dl (6.3-8.2); eGFR > 60.00
[2024-06-01 11:19] LABS: C-Reactive Protein > 270.00 mg/L (0.0-10.00)
[2024-06-01 12:23] LABS: Glycohemoglobin (HgbA1c) 6.2 % (4.0-5.6)
[2024-06-01] MEDS: KCL 40 MEQ PO (13:40)
[2024-06-01 13:42] LABS: Monotest Negative (Negative)
[2024-06-01 14:31] LABS: Haptoglobin 544 mg/dL (30-200)
--- NOTE | 2024-06-01 14:45 | CM ---
Chart reviewed for d/c planning and hospital course updates. Pt off high flow O2, now on 2L.
Due to pt's improvements, is stable to downgrade to telemetry. Cont IV abx
Plan: Pt to transfer to telemetry floor if remains stable
--- NOTE | 2024-06-01 14:57 | W.PN.GI.CBS2 ---
Today's Communication / Plan
-
trend labs
supportive care per critical care team
Assessment / Plan
-
Assessment: Ms Guzman is a 68-year-old female who presented to ER complaining from shortness of breath and mild epigastric discomfort associated with feeling nauseous and vomiting on 05/28/2024. The patient has a PMH of history of interstitial lung
disease, Sweet syndrome, fibromyalgia, hypothyroidism and SLE. The patient was started on CellCept about 3 years ago but she stopped taking it about 1.5 year ago due financial hardship. She has been on mycophenolate for many years and her dose
increased to 6 pills daily a few months ago, but the patient could not tolerate it and she kept having her usual dose 3 as 3 pills/daily and denies any side effects with her usual dose. The patient`s symptoms started on last week on Tuesday with
vomiting and following she was feeling sick and started to eat less than normal. She was with her granddaughter with GI illness for a few days. At the weekend she tolerated some oral taking but she has in bed all the time due feeling sick and
weak. She developed shortness of breath and abdominal pain and presented to ER. After admission she developed a dark colored-loose stool. Her chest CT was significant for pneumonia and her abd CT was significant for colitis. During her follow up,
her lab results showed elevated GGT levels to 518, increasing direct bilirubin levels from 1.1 to 3.8, increasing total bilirubin from 1.9 to 5.5, no elevation with ALT and AST levels. Her Abd US was not remarkable for hepatobiliary problems.
Impression
Abdominal Pain
Elevated bilirubin levels with Elevated GGT
Diarrhea
Multifocal PNA complicated with Acute hypoxemic respiratory failure
SLE on mycophenolate
Thrombocytopenia
Plan
#Abdominal Pain and diarrhea likely secondary to Gastroenteritis vs Colitis
-Abd CT on 05/28/24: inflammatory change adjacent to the rectosigmoid colon( consistent with colitis) and mild fatty liver
-Has a recent sick contact recently
-Stool studies are negative (C. difficile negative norovirus negative cultures also negative )Legionella Ag also negative
-Diarrhea has resolved
#Elevated bilirubin levels with Elevated GGT likely secondary to Sepsis vs Viral infections vs Medications
-s/p Cholecystectomy more than 10 years ago
-Hx of possible CBD stone in the past
-Abd US on 05/30 findings are not consistent with hepatobiliary disease/ not remarkable
-No new medication-Started on antibiotic during hospitalization
-Has a recent sick contact
-Viral hepatitis serologies are negative
-LFTs are trending down
-Noted input from hematology CellCept is on hold given her thrombocytopenia also.
-GI will sign off and will be available as needed
Subjective
Subjective
Date of Service: June 01, 2024
LFTs are trending down
Platelet count is improving today
Patient feels much improved her shortness of breath is markedly improved and she is currently on room air.
Objective
Data Reviewed
Laboratory Data:
Laboratory Results
06/01/24 09:39
06/01/24 10:43
Laboratory Results
Magnesium 2.1 mg/dl (1.6-2.3) 05/30/24 20:10
Total Bilirubin 2.7 mg/dl (0.2-1.3) H D 06/01/24 10:43
AST 27 U/L (14-36) 06/01/24 10:43
ALT 21 U/L (0-35) 06/01/24 10:43
Alkaline Phosphatase 244 U/L (38-126) H 06/01/24 10:43
Lipase 139 U/L (23-300) 05/30/24 07:17
Vital Signs and I&O:
Vital Signs
Temp Pulse Resp BP Pulse Ox
97.9 F 98 17 141/88 94
06/01/24 11:47 06/01/24 14:00 06/01/24 14:00 06/01/24 14:00 06/01/24 14:00
I&O
05/31/24 06/01/24 06/02/24
06:59 06:59 06:59
Intake Total 730 / 730 490 / 490 240 / 240
Output Total 1150 / 1150 550 / 550 250 / 250
Balance -420 / -420 -60 / -60 -10 / -10
Physical Exam
Physical Exam
Cardiology: Normal Sinus Rhythm
Pulmonary: Clear
GI: Soft, Non Distended, Non Tender and Normal Bowel Sounds
[2024-06-01 16:32] LABS: Glucose - Point of Care 231 mg/dl (70-99)
[2024-06-01] MEDS: LOVENOX 40 MG SC (18:07)
--- NOTE | 2024-06-01 20:00 | PTCARENOTE ---
Received patient at 1900. Pt. currently in bed. Awake, alert, and oriented. Denies pain/discomfort. Afebrile. Heart rhythm sinus. Blood pressure normotensive. Currently on room air. Lungs sound diminished. PO diet is ordered, decent appetite.
Voiding without issue. Skin as documented. Discussed plan of care with patient. Vital signs stable at this time.
[2024-06-01] MEDS: ZITHROMAX 500 MG PO (20:07)
[2024-06-01] MEDS: MELATONIN 5 MG PO (22:59)
[2024-06-01 23:17] LABS: Glucose - Point of Care 274 mg/dl (70-99)
[2024-06-01] MEDS: NOVOLOG FLEXPEN 5 UNITS SC (23:41)
[2024-06-02] VITALS (10 sets, daily range): BP systolic 110–150; BP diastolic 60–89; BMI 34.6
[2024-06-02] MEDS: STERILE WATER FOR INJECTION 10 ML IV (02:07)
[2024-06-02] MEDS: ROXICODONE 10 MG PO ×4 (02:07→20:05)
[2024-06-02] MEDS: MAXIPIME 2000 MG IV (02:07)
[2024-06-02] MEDS: DILAUDID 0.5 MG IV ×3 (06:04→21:57)
[2024-06-02] MEDS: SYNTHROID 75 MCG PO (06:04)
[2024-06-02 06:13] LABS: Hematocrit 23.2 % (37.0-47.0); Hemoglobin 7.4 g/dL (12.0-16.0); Mean Corp Hgb Conc. 31.9 g/dL (33.0-37.0); Mean Corpuscular Hgb 30.2 pg (27.0-31.0); Mean Corpuscular Volume 94.7 fL (81.0-99.0); Platelet Count 66 10^3/uL (130-400); Red Blood Cell Count 2.45 10^6/uL (4.20-5.40); Red Cell Dist. Width 15.5 % (11.5-14.5); White Blood Cell Count 10.1 10^3/uL (4.8-10.8)
[2024-06-02 06:32] LABS: ALT (SGPT) 22 U/L (0-35); AST (SGOT) 27 U/L (14-36); Albumin 2.5 g/dl (3.5-5.0); Alkaline Phosphatase 191 U/L (38-126); Blood Urea Nitrogen 28 mg/dl (7-17); Calcium 8.5 mg/dl (8.4-10.2); Carbon Dioxide 24 mmol/L (22-30); Chloride 109 mmol/L (98-107); Estimated Creatinine Clearance 85 ml/min; Glucose 136 mg/dl (70-99); Sodium 139 mmol/L (135-145); Total Bilirubin 1.6 mg/dl (0.2-1.3); Total Protein 5.1 g/dl (6.3-8.2); eGFR > 60.00
[2024-06-02 07:26] LABS: Glucose - Point of Care 147 mg/dl (70-99)
[2024-06-02] MEDS: XOPENEX 1.25 MG INHALANT SOLUTION INH ×3 (07:34→19:25)
[2024-06-02] MEDS: ATROVENT NEBULES 0.5 MG INH ×3 (07:34→19:25)
[2024-06-02] MEDS: DELTASONE 40 MG PO (08:00)
[2024-06-02] MEDS: THERAGRAN 1 TABLET PO (08:00)
[2024-06-02] MEDS: NOVOLOG FLEXPEN-MODERATE RESISTANCE SC (08:00)
[2024-06-02] MEDS: ESTRACE 1 MG PO (08:00)
--- NOTE | 2024-06-02 08:02 | PTCARENOTE ---
Assumed care at 0700 . patient in bed.
AAO x [address] 10
with VT x 6 beats. BP via RT lower FA 150/78 RR 20- 96%RA
On RA . Frequent non productive cough. No SOB. lungs course with wheezing through. Nebulizer tx adm IS encouraged
Abdomen soft non tender Last Bowel movement last night . abdomen soft non tender denies nausea no vomiting good appetite
Voiding without difficulties continent
call vang within reach
--- NOTE | 2024-06-02 08:40 | W.PN.PUL3 ---
Today's Communication / Plan
-
Antibiotics as per ID
Continue Xopenex + Atrovent
She should be discharged home with a nebulizer for as needed use
Tolerating diet
Encouraged incentive spirometer and up OOB as tolerated
Repeat imaging in 4 to 6 weeks to assure her pneumonia resolves
Repeat PFTs in the office to reassess her prior severe restrictive lung defect
Of note, CT chest imaging from 2018 showed no evidence of ILD, despite this being in her history
Pulmonary service will continue to follow along. I believe that she can be safely discharged in the next 24-48 hours; outpatient follow-up will be arranged.
Assessment
-
Patient is a 68-year-old female with past medical history significant for DVT, lupus on cellcept, prior ILD, Sweet syndrome, fibromyalgia, hypothyroid presenting to emergency department with 5 days of nausea/vomiting, epigastric pain, loose
stools and shortness of breath. She also noted Tmax at home 103.6F. In ER, she was tachypneic (RR >20), tachycardic (HR 125), sat 94% on RA, BP 129/78. Denies sick contacts and Influenza/COVID testing negative. Other abnormal labs include: WBC
8.9 with 14% bands, Hb 9.8 Plt 65, Na 123 K 3.6 Bicarb 13 w/ AG of 18. She had slight elevation in LFTs, TB 2.8 Alk phos of 393.
A CT of the abdomen pelvis showed small patchy consolidation within the bilateral lower lobes, trace effusions likely reactive multifocal infection. Adm to floors on 05/29/24 for possible GI vs Pulm infection, placed on abx IV.
INSURANCE ANALYST called overnight on 05/30/24 for RR in 40s, SOB--resp distress on 4L, placed on HFNC. CXR showing interval increase in opacities. Transferred to ICU for further management.
Acute hypoxic respiratory failure requiring high flow nasal cannula, now on room air
Multifocal PNA with multiple pulmonary nodules, particularly in the bases bilaterally
Nausea vomiting/epigastric pain/loose stools due to colitis
Fever
Bandemia
Thrombocytopenia
AGMA - resolved
Anemia
Conditions present prior to admission
Hypothyroidism.
HLD
Sweet syndrome.
Lupus on Cellcept, hx of pleurisy
Interstitial lung disease followed by Dr. Gracia but has not f/u in many years
Severe restrictive lung disease, bronchiectasis-wears O2 2l via n/c
Last PFT 2008, TLC 29%
hx nephritis during childhood and at age 16
Fibromyalgia.
Migraines.
Cholecystectomy.
HODAN-BSO
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
Right total knee arthroplasty 07/19.
Scleritis/episcleritis
Obesity BMI 34.8
Plan
She is markedly improved compared to admission, currently on room air breathing comfortably and no abdominal pain, nausea or vomiting, tolerating her diet
Saturating 94% today on room air
Maintain SpO2>90%
Maintain MAP>65
Recent echo from 05/31/2024 showed mild PAH with PASP 36 mmHg with preserved biventricular function
proBNP elevated at 1660 on 05/29 --> 1640 on 05/30 --> currently no Sx of volume overload
Lasix given x 1 on 05/30/2024 - consideration for continued treatment if needed
Monitor on telemetry
Prior history of lung disease: Reported Hx of ILD, but this is likely false as prior CTA chest from 02/13/2018 showed clear lungs; Hx of restrictive lung disease (severe - last TLC 29% from PFTs in 2008 --> PFTs need to be repeated in the office)
CXR/CT reviewed indicating multifocal PNA
Airway clearance continued PRN
Prednisone taper
Continue Atrovent + Xopenex TID; she says that this is helping her bring up her phlegm; would send home with a nebulizer for as needed use (I will consult case management)
Encouraged PO intake, she is tolerating her diet
Real Estate Representative recommendations
Aspiration precautions, HOB > 30 degrees
Speech therapy following
GI prophylaxis: N/A
Creat at baseline, no history of renal disease
Follow urine output
Replete electrolytes as needed
sHCO3 now normalized - continue to trend
Fever and increased WBC on presentation, PNA noted r/o aspiration
Started on empiric antibiotics with ceftriaxone/Zithromax, and Flagyl started on 05/29/2024 --> cefepime started on 05/30, and she completed Zithromax on 06/01. Currently on Levaquin as per ID
Cultures sent/negative thus far to date
Monitor for fevers; trend WBC
She will need repeat imaging with CT chest in 4 to 6 weeks to assure her pneumonia/nodule opacities have improved/resolved
CBC stable, no signs of bleeding or coagulopathy.
Thrombocytopenia noted --> continue to trend and transfuse if needed to keep platelets >20k
Lupus on cellcept, being held--added on IV steroids given hypoxemia --> currently on prednisone 40mg daily --> trend down by 10mg every 4th day until off
DVT prophylaxis: LMWH
Can transfuse if indicated for Hb <7, plt < 20
No prior h/o diabetes --BG slightly elevated
Goal BG >100 and <180mg/dL, using ISS to maintain this goal
H/o hypothyroidism, can continue on home synthroid dose
Dr. Childers discussed code status with family, given her baseline lung history/restriction, she is at risk for prolongation on the vent
She is full code
Pulmonary service will continue to follow along. I believe that she can be safely discharged in the next 24-48 hours; outpatient follow-up will be arranged.
Diagnostic Data
Chest X-Ray: 05/30/24- Slight interval increase in opacification of the right lower lung, and this likely represents pneumonia. Airspace opacity within the left lower lung, compatible with pneumonia and/or atelectasis. Evidence for a small left
pleural effusion, stable.
CT Scan: CHEST 05/30/24- Limited by motion degradation, as described. Pulmonary artery assessment in the lower lobes beyond the pulmonary arterial lobar segments is nondiagnostic. Otherwise, no pulmonary embolism is identified. Bilateral multifocal
pneumonia. The examination was performed after-hours on an emergency basis, with initial preliminary interpretation provided by [facility].
Echo: 08/13/23- Normal left ventricular size, wall thickness and systolic function. No regional wall motion abnormalities are seen. LV ejection fraction is 60-65% by Poe's method of discs. Normal diastolic function. Normal right ventricular size
and function. Mitral valve opens normally. No mitral stenosis. Trace mitral regurgitation. Thickened trileaflet aortic valve with normal leaflet excursion. Aortic valve sclerosis. No aortic stenosis. No aortic regurgitation is seen. Tricuspid valve
opens normally. Mild tricuspid regurgitation. Estimated pulmonary artery pressure of 25-30 mmHg. Assuming a right atrial pressure of 3 mmHg.Compared to prior study 02/14/2018 aortic valve sclerosis is noted.
PFT's: 2008- FVC is 0.75 or 25%, FEV1 is 0.59 or 24%, Ratio of 78, FEF 25-75 is 0.56 or 23%. There is a 77% improvement in the FEF 25-75 following bronchodilator.
TLC is 1.29 or 29%, Diffusing capacity is 4.85 or 22% -- Severe mixed Obstructive and Restrictive Lung Disease with severe gas exchange defect.
Reports and relevant images were personally reviewed.
Total time spent today was 57 minutes for this encounter. Time includes reviewing laboratory test/imaging results, reviewing pertinent medical records, obtaining and reviewing medical history, performing an appropriate exam, ordering medications,
tests and procedures. Time also includes documentation of this encounter, coordinating patient care and communicating with other healthcare professionals. Total time does not include separately billed tests performed on this date of service.
Subjective Data
-
Date of Service:
Date of Service: June 02, 2024
Chief Complaint: Pulmonary Follow Up
Subjective:
Patient seen and evaluated this morning. Her , Justin, is at bedside and all questions were answered. She says that she feels better today. Currently on room air saturating 95% and breathing comfortably. She has a cough mainly with activity
and bringing up minimal phlegm. She does not know the color of her phlegm. Currently saturating 94% on room air, heart rate 97. She denies chest pain, abdominal pain, nausea, fevers or chills. She is tolerating her food well with no issues.
Review of Systems
General: Other (Negative unless mentioned above)
Objective Data
Data Reviewed
Vital Signs / I&O / Oxygen:
Vital Signs
Temp Pulse Resp BP Pulse Ox
98.3 F 82 21 118/79 95
06/02/24 07:09 06/02/24 07:37 06/02/24 07:37 06/02/24 06:27 06/02/24 07:37
Intake and Output
06/01/24 06/02/24 06/03/24
06:59 06:59 06:59
Intake Total 490 / 490 640 / 640 250 / 250
Output Total 550 / 550 250 / 250
Balance -60 / -60 390 / 390 250 / 250
SaO2 95
Nasal Cannula flow liters per 2
minute
Physical Exam
General: Respiratory Distress (negative), Comfortable, Chills (negative) and Sweats (negative)
HEENT: Normocephalic and Anicteric
Cardiovascular: S1-S2 and Peripheral Edema (Trace EMIGDIO b/l)
Respiratory: Wheeze (negative), Crackles (Bibasilar), Rhonchi (Bibasilar, mainly with expiration) and Non-Labored Respirations
GI: Soft, Distended (Abdominal obesity), Non Tender and Normal Bowel Sounds
Neurology: AO x 3 and Tremors (negative)
Skin: Warm, Dry, Cyanosis (negative) and Jaundice (negative)
Labs/Micro/Reports
Lab Data
06/02/24 05:51
06/02/24 05:51
Microbiology
05/29/24 12:59 Blood/Venous Blood Culture - Preliminary
No Growth in 72 hours- Final report to follow
05/29/24 12:59 Blood/Venous Blood Culture - Preliminary
No Growth in 72 hours- Final report to follow
05/30/24 09:32 Feces/Stool Salmonella/Shigella Culture - Final
No Salmonella, Shigella, Aeromonas or Plesiomonas species
isolated.
05/30/24 09:32 Feces/Stool Campylobacter Culture - Final
No Campylobacter species isolated.
05/30/24 09:32 Feces/Stool Shiga Toxin Test - Final
No E. coli Shiga Toxin 1 or 2 detected.
05/29/24 09:32 Feces/Stool Stool Leukocytes - Final
05/29/24 09:32 Feces/Stool C. difficile GDH Antigen & Toxins - Final
Negative for toxigenic C.difficile
05/29/24 09:32 Feces/Stool - Final
Negative for Norovirus GI and GII.
--- NOTE | 2024-06-02 09:10 | W.PN.ID1 ---
Date of Service
Date of Service: June 02, 2024
Today's Communication
- switched to levaquin, stop azithromycin and cefepime can complete a 10 day course 05/30-06/08
- On prednisone, per Pulm.
- would observe clinically
Assessment / Plan
# Immunocompromise host: SLE on mycophenolate
# Fever - resolved
# Resolved hypoxemic respiratory failure
# Multifocal PNA - improving
- has not produced a sputum, blood cultures no growth to date
- switched to levaquin, stop azithromycin and cefepime can complete a 10 day course 05/30-06/08
- On prednisone, per Pulm.
- would observe clinically
# Gastroenteritis
- Recent Exposure to granddaughter with GI illness
- Recent N/V/D
- CT a/p mild bowel wall thickening sigmoid, rectum
- ABD US unremarkable GB
- C. diff neg.
- norovirus PCR neg
- Stool cx negative.
# Acute thrombocytopenia
- Hem/Onc following
# Hyperbilirubinemia
- GI following
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
SLE on mycophenolate
History of interstitial lung disease
History of Sweet syndrome
Hypothyroidism
Fibromyalgia
hx SBO x2
Cholecystectomy
HODAN/BSO
Right Total knee replacement
Chief Complaint
-: Pneumonia and Other (colitis)
Subjective / Review of Systems
afebrile
bp stable
on room air
6 beats of VT overnight
no complaints
happy to have full diet
Vital Signs / Physical Exam
Vital Signs
Vital Signs
Temp Pulse Resp BP Pulse Ox
98.3 F 82 21 118/79 95
06/02/24 07:09 06/02/24 07:37 06/02/24 07:37 06/02/24 06:27 06/02/24 07:37
Physical Exam
Constitutional: No Acute Distress and Chronically Ill
Cardiovascular: Regular Rate and S1/S2; Negative Murmur or Rub
Pulmonary: Symmetric and Non Labored; Negative Wheezes or Rales
Gastrointestinal: Soft, Non Tender, Non Distended and Normal Bowel Sounds
Skin: Warm and Dry; Negative Rash or Jaundice
Objective Data
Lab Data
Lab Results
06/02/24 05:51
06/02/24 05:51
ESR 141 mm/hour (0-20) H 06/01/24 09:39
Estimated Creat Clear 85 ml/min 06/02/24 05:51
Lactic Acid 1.5 mmol/L (0.7-2.0) 05/29/24 05:19
Total Bilirubin 1.6 mg/dl (0.2-1.3) H D 06/02/24 05:51
GGT 518 U/L (12-43) H 05/29/24 05:19
AST 27 U/L (14-36) 06/02/24 05:51
ALT 22 U/L (0-35) 06/02/24 05:51
Alkaline Phosphatase 191 U/L (38-126) H 06/02/24 05:51
C-Reactive Protein > 270.00 mg/L (0.0-10.00) H 06/01/24 10:43
Most recent labs reviewed.
Micro Results:
05/29/24 12:59 Blood Culture - Preliminary
Blood/Venous No Growth in 72 hours- Final report to follow
05/29/24 12:59 Blood Culture - Preliminary
Blood/Venous No Growth in 72 hours- Final report to follow
05/30/24 09:32 Salmonella/Shigella Culture - Final
Feces/Stool No Salmonella, Shigella, Aeromonas or Plesiomonas species
isolated.
Campylobacter Culture - Final
No Campylobacter species isolated.
Shiga Toxin Test - Final
No E. coli Shiga Toxin 1 or 2 detected.
05/29/24 09:32 Stool Leukocytes - Final
Feces/Stool
05/29/24 09:32 C. difficile GDH Antigen & Toxins - Final
Feces/Stool Negative for toxigenic C.difficile
- Final
Negative for Norovirus GI and GII.
05/29/24 05:44 Legionella Urinary Antigen - Final
Urine Negative for Legionella pneumophila Serogroup 1 antigen.
A negative result does not rule out the possiblity of
Legionella infection due to other serogroups or species of
Legionella. Clinical correlation is recommended.
Streptococcus pneumoniae Antigen (M - Final
Negative for Streptococcus pneumoniae antigen.
A negative result does not exclude infection with
Streptococcus pneumoniae. Clinical correlation is
recommended.
05/28/24 18:40 Influenza Types A & B (DARLEEN) - Final
Nasal Swab Negative for Influenza A & B, NAAT
Negative results must be combined with clinical observations
and patient history.
Nucleic Acid Amplification test (NAAT)performed on the
[employer] platform.
05/28/24 CT a/p: Mild bowel wall thickening sigmoid , rectum and adjacent mesenteric inflammatory change adjacent to the rectosigmoid colon, consistent with colitis. Colitis is likely infectious or inflammatory. Patchy groundglass opacity at each
lung base. Nodular opacities in each lung base measuring up to 1.1 cm in diameter, as detailed above. Findings may be infectious or related to subsegmental atelectasis, however follow-up chest CT is suggested in 3-6 months to exclude pulmonary
nodules. Mild fatty infiltration of liver.
05/29/24 CXR: No active cardiopulmonary disease.
05/30/24 CXR: There is new hazy pleural-parenchymal airspace disease in the lower right lung which I favor is right middle lobe pneumonia, however, there may be a component of pleural fluid along the fissure on the right.
05/30/[address]: Bilateral multifocal pneumonia. Limited by motion degradation, as described. Pulmonary artery assessment in the lower lobes beyond the pulmonary arterial lobar segments is nondiagnostic. Otherwise, no pulmonary embolism is
identified.
--- NOTE | 2024-06-02 09:43 | W.PN.HOSP.TC ---
Today's Communication/Plan
-
CW ABX
PT /OT eval
DC planning
Assessment / Plan
Assessment / Plan
IMPRESSION:
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
breath with mild O2 requirement is satting 94% on room air, GHAZAL has no cough but reports pleuritic chest pain and some difficulty breathing.
CT scan of the abdomen pelvis revealed patchy consolidation within the bilateral lower lobes related to multifocal infection unlikely, trace bilateral effusions also noted. The abdomen had no significant findings but was consistent with
gastroenteritis. Labs are notable for bandemia to 14%, bicarb of 13 with combination anion gap and non-anion gap metabolic acidosis and mild DAYRON. There is elevated total bilirubin and alk phos with normal LFTs.
PLAN:
#Sepsis-GI source versus pulmonary
Resolved fever. Hemodynamically stable. Lactic acid was normal on admission.
Continue with treatment of infectious source and supportive treatments.
#Acute colitis-patient presented with GI symptoms including nausea abdominal pain and not much diarrhea. She has CT evidence of colitis involving the rectosigmoid colon. No complication of abscess or perforation. Patient is immunosuppressed. C.
difficile is negative so far. Few white cells in stools noted. Shiga toxin negative. Salmonella/Campylobacter pending.. Continue with cefepime.
Resolved GI symptoms. Tolerating solid diet.
(Interval history-granddaughter apparently had an acute short-lived episode of GI illness and she was with the patient at home. Potential changes with the health was GI track with nausea vomiting abdominal pain and small amount loose stools. She
then had respiratory symptoms or shortness of breath. Denies any dysphagia. Denies aspiration during her emesis.
#Shortness of breath and associated acute hypoxic respiratory failure
-She rapidly progressed with minimal symptoms to significant shortness of breath and also from requiring 2 L to now high flow oxygen.
-Chest x-ray blossomed very quickly from no findings to bilateral airspace disease. Chest CT yesterday shows multifocal pneumonia.
-Patient has a history of ILD
-Unclear if she had aspiration or this is multifocal infectious pneumonia or developing ARDS
-Her weight since admission has been stable. Her BNP was only 1600s. No evidence of acute OK. Doubt heart failure but will keep her negative. Lasix as needed; weight stable. Echocardiogram shows normal EF, no significant valvular heart disease
other than mild mitral regurgitation, mild TR.
- Steroids per pulmonary
#Abnormal liver enzymes - Elevated tbili and alkpho with normal transaminases suggestive of cholestatic pattern. s/p seven, no biliary dilation.
- ggt is up.
- trend lfts for now
- legionella ag negative.
-ultrasound of the abdomen shows no biliary pathology
-With thrombocytopenia and anemia rule out hemolytic process elevated bilirubin which is creeping up. Haptoglobulin high. Elevated LDH noted.
-Appreciate GI input -signed off
- Improving
#Lupus - No skin rash
-Hold CellCept with active infection
-Check immunoglobulin panel and transfuse IVIG if less than 500 -pending
#Thrombocytopenia and anemia. Rule out hemolytic process.
-No Schistocytes per hematology.
-Follow hemolysis labs.
#DAYRON suspect prerenal. Improved creatinine from 1.2-0.7 send IV fluid support.
#Metabolic acidosis-
-Elevated anion gap on admission noted may be related to DAYRON.
- Normalized
DVT PPX - lovenox sq
Code status - Full Code
PT /OT eval
Anticipated Discharge: 24 - 48 hours
Subjective/Interval History
-
Date of Service: June 02, 2024
Patient is feeling improved. Off of oxygen.
DuoNeb makes her cough more. Not much productive phlegm.
No fever chills.
Resolved GI symptoms. Tolerating solid diet.
Objective Data
-
Labs:
Laboratory Results
06/02/24
05:51
WBC 10.1
Hgb 7.4 L
Hct 23.2 L
Plt Count 66 L
Sodium 139
Potassium 4.0
Chloride 109 H
Carbon Dioxide 24
BUN 28 H
Creatinine 0.6
Glucose 136 H
Calcium 8.5
Total Bilirubin 1.6 H D
AST 27
ALT 22
Alkaline Phosphatase 191 H
Vital Signs:
Vital Signs
Temp Pulse Resp BP Pulse Ox
98.3 F 82 21 118/79 95
06/02/24 07:09 06/02/24 07:37 06/02/24 07:37 06/02/24 06:27 06/02/24 07:37
I&O
06/01/24 06/02/24 06/03/24
06:59 06:59 06:59
Intake Total 490 / 490 640 / 640 250 / 250
Output Total 550 / 550 250 / 250
Balance -60 / -60 390 / 390 250 / 250
Review of Systems
-
Constitutional: Denies Fever
Cardiac: Denies Chest Pain
Neuro: Denies Dizzy
Physical Exam
-
General: No Apparent Distress
Respiratory: Crackles (right lower zone and also in left base) and Non Labored Respirations; Negative Wheezes or Accessory Resp Muscle Use
Cardiac: Regular Rhythm and S1/S2
GI: Soft and Nontender
Neuro: AO x 3
Psych: Calm
Data Reviewed
-
Labs: Labs Reviewed by me
--- NOTE | 2024-06-02 10:52 | W.PN.ONC ---
Today's Communication / Plan
-
Hold cellcept for now
Reticulocyte count and haptoglobin refute hemolysis
Monitor for bleeding, check heme stool hemoglobin stable at 7.4 g/dL
Avoid nsaids, anticoagulation, antiplatelets if platelets <50,000
Transfuse Hgb <7g/dL or as needed for sxs anemia
Check IgG level
Repeat CT chest 3-6 months with PCP to exclude pulmonary nodule
Impression
Impression
b/l multifocal PNA/sepsis/respiratory failure
elevated LFTs
possible gastroenteritis
normocytic anemia, elevated ESR so suspect component of inflammation and dilution with IVF on sepsis protocol predominance of bladimir cells no schistocytes or atypical forms
acute thrombocytopenia
normal CBC in November 2023
SLE on chronic immunosuppression with cellcept
ILD
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
Plan
Plan
s
Subjective/Objective
Subjective/Objective
Clinically improvement sitting in a chair
Vital Signs:
Vital Signs
Temp Pulse Resp BP Pulse Ox
98.3 F 82 21 118/79 95
06/02/24 07:09 06/02/24 07:37 06/02/24 07:37 06/02/24 06:27 06/02/24 07:37
Physical exam unchanged continues to have bilateral rhonchi
Lab Results:
Laboratory Data
WBC 10.1 10^3/uL (4.8-10.8) 06/02/24 05:51
Hgb 7.4 g/dL (12.0-16.0) L 06/02/24 05:51
Plt Count 66 10^3/uL (130-400) L 06/02/24 05:51
eGFR > 60.00 06/02/24 05:51
[2024-06-02] MEDS: LEVAQUIN 750 MG PO (11:28)
[2024-06-02] MEDS: TESSALON PERLES 100 MG PO ×2 (11:38→20:10)
[2024-06-02 11:52] LABS: Glucose - Point of Care 227 mg/dl (70-99)
[2024-06-02] MEDS: NOVOLOG FLEXPEN-MODERATE RESISTANCE 3 UNITS SC ×2 (12:07→17:49)
[2024-06-02 17:36] LABS: Glucose - Point of Care 220 mg/dl (70-99)
[2024-06-02] MEDS: LOVENOX 40 MG SC (17:48)
--- NOTE | 2024-06-02 18:16 | PTCARENOTE ---
patient in bed. Out of bed during the day ambulates in a hallway and room. AAO x3. chronic back pain, reports pain relieve with oxycodone
Blood sugar 220/ covered per moderate sliding scale 3 units 100 dinner
[2024-06-02] MEDS: ROBITUSSIN DM 5 ML PO (20:10)
[2024-06-02 21:37] LABS: Glucose - Point of Care 260 mg/dl (70-99)
[2024-06-02] MEDS: MELATONIN 5 MG PO (21:57)
[2024-06-02] MEDS: NOVOLOG FLEXPEN 5 UNITS SC (21:58)
[2024-06-03] VITALS (18 sets, daily range): BP systolic 110–147; BP diastolic 60–93; BMI 34.5
[2024-06-03 02:19] LABS: F-Actin Antibody IgG 9 Units (0-19)
[2024-06-03 02:20] LABS: Mitochondrial M2 Ab, IgG 5.1 Units (0.0-24.9)
[2024-06-03] MEDS: ROXICODONE 10 MG PO ×4 (03:00→19:56)
[2024-06-03 04:27] LABS: Hematocrit 20.6 % (37.0-47.0); Hemoglobin 6.8 g/dL (12.0-16.0); Mean Corpuscular Hgb 29.7 pg (27.0-31.0); Mean Platelet Volume 10.4 fL (7.4-10.4); Platelet Count 81 10^3/uL (130-400); Red Blood Cell Count 2.29 10^6/uL (4.20-5.40); Red Cell Dist. Width 14.6 % (11.5-14.5)
[2024-06-03 04:31] LABS: Blood Urea Nitrogen 24 mg/dl (7-17); Calcium 8.5 mg/dl (8.4-10.2); Carbon Dioxide 22 mmol/L (22-30); Chloride 104 mmol/L (98-107); Estimated Creatinine Clearance 85 ml/min; Glucose 134 mg/dl (70-99); Potassium 3.5 mmol/L (3.5-5.1); Sodium 135 mmol/L (135-145); eGFR > 60.00
[2024-06-03] MEDS: SYNTHROID 75 MCG PO (05:18)
--- NOTE | 2024-06-03 07:25 | PTCARENOTE ---
Assumed care at 0700; VS: 98.0(oral) BP via RT FA 136/87 (101) SR 83; RR 23; 94% RA .
AAO x3; Chronic joints pain 5 out 10 pain scale level;
SR 85 no murmur to Auscultated no edema pedal pulses palatable
occasional non productive cough , IS 500 acapella
Abdomen soft non-tender BS present hyperactive . Last BM 2 days ago
Voiding no complaints continent
Hgb 6.8 Type and cross send to lab earlier result pending.
pt in bed HOB elevated call vang within reach
[2024-06-03 07:35] LABS: Glucose - Point of Care 115 mg/dl (70-99)
[2024-06-03] MEDS: NOVOLOG FLEXPEN-MODERATE RESISTANCE SC (07:35)
[2024-06-03] MEDS: DELTASONE 40 MG PO (07:39)
[2024-06-03] MEDS: THERAGRAN 1 TABLET PO (07:39)
[2024-06-03] MEDS: LEVAQUIN 750 MG PO (07:39)
[2024-06-03] MEDS: TESSALON PERLES 100 MG PO (07:39)
[2024-06-03] MEDS: ESTRACE 1 MG PO (07:40)
[2024-06-03] MEDS: ATROVENT NEBULES 0.5 MG INH ×3 (08:02→19:28)
[2024-06-03] MEDS: XOPENEX 1.25 MG INHALANT SOLUTION INH ×3 (08:02→19:29)
--- NOTE | 2024-06-03 08:20 | W.PN.PUL3 ---
Today's Communication / Plan
-
Antibiotics as per ID
Continue Xopenex + Atrovent
She should be discharged home with a nebulizer for as needed use
Tolerating diet
Encouraged incentive spirometer and up OOB as tolerated
Repeat chest imaging in 4 to 6 weeks to assure her pneumonia resolves
Repeat PFTs in the office to reassess her prior severe restrictive lung defect
Of note, CT chest imaging from 2018 showed no evidence of ILD, despite this being in her history
Serial H&H and have GI reevaluate the patient now that she is acutely anemic with reports of rectal bleeding 2 days ago
Start Lantus 5 units given hyperglycemia towards the late afternoon/evening hours; as steroids taper will likely need to adjust/discontinue Lantus
Pulmonary service will continue to follow along. Outpatient follow-up will be arranged.
Assessment
-
Patient is a 68-year-old female with past medical history significant for DVT, lupus on cellcept, prior ILD, Sweet syndrome, fibromyalgia, hypothyroid presenting to emergency department with 5 days of nausea/vomiting, epigastric pain, loose
stools and shortness of breath. She also noted Tmax at home 103.6F. In ER, she was tachypneic (RR >20), tachycardic (HR 125), sat 94% on RA, BP 129/78. Denies sick contacts and Influenza/COVID testing negative. Other abnormal labs include: WBC
8.9 with 14% bands, Hb 9.8 Plt 65, Na 123 K 3.6 Bicarb 13 w/ AG of 18. She had slight elevation in LFTs, TB 2.8 Alk phos of 393.
A CT of the abdomen pelvis showed small patchy consolidation within the bilateral lower lobes, trace effusions likely reactive multifocal infection. Adm to floors on 05/29/24 for possible GI vs Pulm infection, placed on abx IV.
CULINARY ARTIST called overnight on 05/30/24 for RR in 40s, SOB--resp distress on 4L, placed on HFNC. CXR showing interval increase in opacities. Transferred to ICU for further management.
Acute hypoxic respiratory failure requiring high flow nasal cannula, now on room air
Multifocal PNA with multiple pulmonary nodules, particularly in the bases bilaterally
Nausea vomiting/epigastric pain/loose stools due to colitis
Fever
Bandemia
Thrombocytopenia
AGMA - resolved
Anemia
Rectal bleeding
Conditions present prior to admission
Hypothyroidism.
HLD
Sweet syndrome.
Lupus on Cellcept, hx of pleurisy
Interstitial lung disease followed by Dr. Gracia but has not f/u in many years
Severe restrictive lung disease, bronchiectasis-wears O2 2l via n/c
Last PFT 2008, TLC 29%
hx nephritis during childhood and at age 16
Fibromyalgia.
Migraines.
Cholecystectomy.
HODAN-BSO
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
Right total knee arthroplasty 07/19.
Scleritis/episcleritis
Obesity BMI 34.8
Plan
She is markedly improved compared to admission, currently on room air breathing comfortably and no abdominal pain, nausea or vomiting, tolerating her diet
Plan was for her to possibly go home today but given her acute anemia requiring 1 unit PRBC transfusion, this will need to be postponed for now
Continue to trend H&H to assure appropriate rise in Hb following transfusion
Maintain large-bore IV x 2
Will have GI re-evaluate the patient as this acute anemia is now delaying discharge
Saturating 98% today on room air
Maintain SpO2>90%
Maintain MAP>65
Recent echo from 05/31/2024 showed mild PH with PASP 36 mmHg with preserved biventricular function
proBNP elevated at 1660 on 05/29 --> 1640 on 05/30 --> currently no Sx of volume overload
Lasix given x 1 on 05/30/2024 - consideration for continued treatment if needed
Monitor on telemetry
Prior history of lung disease: Reported Hx of ILD, but this is likely false as prior CTA chest from 02/13/2018 showed clear lungs; Hx of restrictive lung disease (severe - last TLC 29% from PFTs in 2008 --> PFTs need to be repeated in the office)
CXR/CT from this admission was personally reviewed indicating multifocal PNA
Airway clearance continued PRN
Start antitussants with codeine syrup and tessalon perles
Prednisone taper � currently on 40 mg and would reduce by 10 mg every fourth day until off (steroids were initially started given hypoxia in setting of CAP)
Continue Atrovent + Xopenex TID; she says that this is helping her bring up her phlegm; would send home with a nebulizer for as needed use (I consulted case management on 06/02)
Encouraged PO intake, she is tolerating regular diet
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
Aspiration precautions, HOB > 30 degrees
Speech therapy following
GI prophylaxis: Although she has acute anemia, have low suspicion for an UGIB given recent rectal bleeding and BUN only slightly high and is likely due to steroids
Creat at baseline, no history of renal disease
Follow urine output
Replete electrolytes as needed
sHCO3 now normalized - continue to trend
Fever and increased WBC on presentation, PNA noted r/o aspiration
Started on empiric antibiotics with ceftriaxone/Zithromax, and Flagyl started on 05/29/2024 --> cefepime started on 05/30, and she completed Zithromax on 06/01. Currently on Levaquin as per ID
Cultures sent/negative thus far to date
Monitor for fevers; trend WBC
She will need repeat imaging with CT chest in 4 to 6 weeks to assure her pneumonia/nodule opacities have improved/resolved
Getting 1 U PRBC this AM
Would check PT/INR and PTT when next blood draw happens to assure these are stable; goal INR<1.8
Would have GI see the pt now that she is acutely anemic and she reports rectal bleeding 2 days ago
Thrombocytopenia noted --> continue to trend and transfuse if needed to keep platelets >50k
Lupus on cellcept, being held--added on IV steroids given hypoxemia --> currently on prednisone 40mg daily --> trend down by 10mg every 4th day until off
DVT prophylaxis: LMWH
Can transfuse if indicated for Hb <7, plt < 50k
No prior h/o diabetes --BG slightly elevated
Goal BG >100 and <180mg/dL, using ISS to maintain this goal; she continues to have spiking BG at night; will start a low dose lantus now 5 units and re-assess this daily
H/o hypothyroidism, can continue on home synthroid dose
Dr. Childers discussed code status with family, given her baseline lung history/restriction, she is at risk for prolongation on the vent
She is full code
Pulmonary service will continue to follow along. Outpatient follow-up will be arranged.
Diagnostic Data
Chest X-Ray: 05/30/24- Slight interval increase in opacification of the right lower lung, and this likely represents pneumonia. Airspace opacity within the left lower lung, compatible with pneumonia and/or atelectasis. Evidence for a small left
pleural effusion, stable.
CT Scan: CHEST 05/30/24- Limited by motion degradation, as described. Pulmonary artery assessment in the lower lobes beyond the pulmonary arterial lobar segments is nondiagnostic. Otherwise, no pulmonary embolism is identified. Bilateral multifocal
pneumonia. The examination was performed after-hours on an emergency basis, with initial preliminary interpretation provided by [facility].
Echo: 08/13/23- Normal left ventricular size, wall thickness and systolic function. No regional wall motion abnormalities are seen. LV ejection fraction is 60-65% by Poe's method of discs. Normal diastolic function. Normal right ventricular size
and function. Mitral valve opens normally. No mitral stenosis. Trace mitral regurgitation. Thickened trileaflet aortic valve with normal leaflet excursion. Aortic valve sclerosis. No aortic stenosis. No aortic regurgitation is seen. Tricuspid valve
opens normally. Mild tricuspid regurgitation. Estimated pulmonary artery pressure of 25-30 mmHg. Assuming a right atrial pressure of 3 mmHg.Compared to prior study 02/14/2018 aortic valve sclerosis is noted.
PFT's: 2009- FVC is 0.75 or 25%, FEV1 is 0.59 or 24%, Ratio of 78, FEF 25-75 is 0.56 or 23%. There is a 77% improvement in the FEF 25-75 following bronchodilator.
TLC is 1.29 or 29%, Diffusing capacity is 4.85 or 22% -- Severe mixed Obstructive and Restrictive Lung Disease with severe gas exchange defect.
Reports and relevant images were personally reviewed.
Total time spent today was 39 minutes for this encounter. Time includes reviewing laboratory test/imaging results, reviewing pertinent medical records, obtaining and reviewing medical history, performing an appropriate exam, ordering medications,
tests and procedures. Time also includes documentation of this encounter, coordinating patient care and communicating with other healthcare professionals. Total time does not include separately billed tests performed on this date of service.
Subjective Data
-
Date of Service:
Date of Service: June 03, 2024
Chief Complaint: Pulmonary Follow Up
Subjective:
Patient seen and evaluated this morning. Hb this morning is low at 6.8 and 1 unit PRBCs is ordered to be transfused. She reports having blood in her stool 2-3 days ago, and has not had a bowel movement in the last 48 hours. Denies abdominal pain.
Her main complaint is cough. She has chest and abdominal pain from coughing. Currently on room air saturating 98% with heart rate 95 and BP 136/67. at bedside and all questions were answered.
Review of Systems
General: Other (Negative unless mentioned above)
Objective Data
Data Reviewed
Vital Signs / I&O / Oxygen:
Vital Signs
Temp Pulse Resp BP Pulse Ox
97.9 F 89 21 143/83 98
06/03/24 10:20 06/03/24 10:20 06/03/24 10:20 06/03/24 10:20 06/03/24 10:20
Intake and Output
06/02/24 06/03/24 06/04/24
06:59 06:59 06:59
Intake Total 640 / 640 250 / 250 0 / 0
Output Total 250 / 250
Balance 390 / 390 250 / 250 0 / 0
SaO2 98
Nasal Cannula flow liters per 2
minute
Physical Exam
General: Respiratory Distress (negative), Comfortable, Chills (negative) and Sweats (negative)
HEENT: Normocephalic and Anicteric
Cardiovascular: S1-S2 and Peripheral Edema (Trace EMIGDIO b/l)
Respiratory: Wheeze (negative), Crackles (Bibasilar), Rhonchi (Bibasilar, mainly with expiration) and Non-Labored Respirations
GI: Soft, Distended (Abdominal obesity), Non Tender and Normal Bowel Sounds
Neurology: AO x 3 and Tremors (negative)
Skin: Warm, Dry, Cyanosis (negative) and Jaundice (negative)
Labs/Micro/Reports
Lab Data
06/03/24 03:44
06/03/24 03:44
Microbiology
05/29/24 12:59 Blood/Venous Blood Culture - Preliminary
No Growth in 4 days- Final report to follow
05/29/24 12:59 Blood/Venous Blood Culture - Preliminary
No Growth in 4 days- Final report to follow
05/30/24 09:32 Feces/Stool Salmonella/Shigella Culture - Final
No Salmonella, Shigella, Aeromonas or Plesiomonas species
isolated.
05/30/24 09:32 Feces/Stool Campylobacter Culture - Final
No Campylobacter species isolated.
05/30/24 09:32 Feces/Stool Shiga Toxin Test - Final
No E. coli Shiga Toxin 1 or 2 detected.
--- NOTE | 2024-06-03 09:04 | W.PN.ID1 ---
Date of Service
Date of Service: June 03, 2024
Today's Communication
- continue levaquin can complete a 10 day course 05/30-06/08
- On prednisone, per Pulm
- MMF currently on hold per oncology
Assessment / Plan
# Immunocompromise host: SLE on mycophenolate
# Fever - resolved
# Resolved hypoxemic respiratory failure
# Multifocal PNA - improving
- has not produced a sputum, blood cultures no growth to date
- continue levaquin can complete a 10 day course 05/30-06/08
- On prednisone, per Pulm
- MMF currently on hold per oncology
# Gastroenteritis - resolved
- Recent Exposure to granddaughter with GI illness
- Recent N/V/D
- CT a/p mild bowel wall thickening sigmoid, rectum
- ABD US unremarkable GB
- C. diff neg.
- norovirus PCR neg
- Stool cx negative.
# Acute thrombocytopenia
- Hem/Onc following
# Hyperbilirubinemia
- GI following
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
SLE on mycophenolate
History of interstitial lung disease
History of Sweet syndrome
Hypothyroidism
Fibromyalgia
hx SBO x2
Cholecystectomy
HODAN/BSO
Right Total knee replacement
Chief Complaint
-: Pneumonia and Other (colitis)
Subjective / Review of Systems
remains afebrile
bp stable
reports cough with deep breath
Vital Signs / Physical Exam
Vital Signs
Vital Signs
Temp Pulse Resp BP Pulse Ox
98 F 86 21 146/93 95
06/03/24 07:37 06/03/24 08:04 06/03/24 08:04 06/03/24 08:02 06/03/24 04:00
Physical Exam
Constitutional: No Acute Distress
Cardiovascular: Regular Rate and S1/S2; Negative Murmur or Rub
Pulmonary: Clear, Symmetric and Non Labored; Negative Wheezes or Rales
Gastrointestinal: Soft, Non Tender, Non Distended and Normal Bowel Sounds
Skin: Warm and Dry; Negative Rash or Jaundice
Objective Data
Lab Data
Lab Results
06/03/24 03:44
06/03/24 03:44
ESR 141 mm/hour (0-20) H 06/01/24 09:39
Estimated Creat Clear 85 ml/min 06/03/24 03:44
Lactic Acid 1.5 mmol/L (0.7-2.0) 05/29/24 05:19
Total Bilirubin 1.6 mg/dl (0.2-1.3) H D 06/02/24 05:51
GGT 518 U/L (12-43) H 05/29/24 05:19
AST 27 U/L (14-36) 06/02/24 05:51
ALT 22 U/L (0-35) 06/02/24 05:51
Alkaline Phosphatase 191 U/L (38-126) H 06/02/24 05:51
C-Reactive Protein > 270.00 mg/L (0.0-10.00) H 06/01/24 10:43
Most recent labs reviewed.
Micro Results:
05/29/24 12:59 Blood Culture - Preliminary
Blood/Venous No Growth in 4 days- Final report to follow
05/29/24 12:59 Blood Culture - Preliminary
Blood/Venous No Growth in 4 days- Final report to follow
05/30/24 09:32 Salmonella/Shigella Culture - Final
Feces/Stool No Salmonella, Shigella, Aeromonas or Plesiomonas species
isolated.
Campylobacter Culture - Final
No Campylobacter species isolated.
Shiga Toxin Test - Final
No E. coli Shiga Toxin 1 or 2 detected.
05/29/24 09:32 Stool Leukocytes - Final
Feces/Stool
05/29/24 09:32 C. difficile GDH Antigen & Toxins - Final
Feces/Stool Negative for toxigenic C.difficile
- Final
Negative for Norovirus GI and GII.
05/29/24 05:44 Legionella Urinary Antigen - Final
Urine Negative for Legionella pneumophila Serogroup 1 antigen.
A negative result does not rule out the possiblity of
Legionella infection due to other serogroups or species of
Legionella. Clinical correlation is recommended.
Streptococcus pneumoniae Antigen (M - Final
Negative for Streptococcus pneumoniae antigen.
A negative result does not exclude infection with
Streptococcus pneumoniae. Clinical correlation is
recommended.
05/28/24 18:40 Influenza Types A & B (DARLEEN) - Final
Nasal Swab Negative for Influenza A & B, NAAT
Negative results must be combined with clinical observations
and patient history.
Nucleic Acid Amplification test (NAAT)performed on the
[employer] platform.
05/28/24 CT a/p: Mild bowel wall thickening sigmoid , rectum and adjacent mesenteric inflammatory change adjacent to the rectosigmoid colon, consistent with colitis. Colitis is likely infectious or inflammatory. Patchy groundglass opacity at each
lung base. Nodular opacities in each lung base measuring up to 1.1 cm in diameter, as detailed above. Findings may be infectious or related to subsegmental atelectasis, however follow-up chest CT is suggested in 3-6 months to exclude pulmonary
nodules. Mild fatty infiltration of liver.
05/29/24 CXR: No active cardiopulmonary disease.
05/30/24 CXR: There is new hazy pleural-parenchymal airspace disease in the lower right lung which I favor is right middle lobe pneumonia, however, there may be a component of pleural fluid along the fissure on the right.
05/30/[address]: Bilateral multifocal pneumonia. Limited by motion degradation, as described. Pulmonary artery assessment in the lower lobes beyond the pulmonary arterial lobar segments is nondiagnostic. Otherwise, no pulmonary embolism is
identified.
--- NOTE | 2024-06-03 09:17 | W.PN.HOSP.TC ---
Today's Communication/Plan
-
Transfuse 1 unit of blood today.
DC planning
Assessment / Plan
Assessment / Plan
IMPRESSION:
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
breath with mild O2 requirement is satting 94% on room air, GHAZAL has no cough but reports pleuritic chest pain and some difficulty breathing.
CT scan of the abdomen pelvis revealed patchy consolidation within the bilateral lower lobes related to multifocal infection unlikely, trace bilateral effusions also noted. The abdomen had no significant findings but was consistent with
gastroenteritis. Labs are notable for bandemia to 14%, bicarb of 13 with combination anion gap and non-anion gap metabolic acidosis and mild DAYRON. There is elevated total bilirubin and alk phos with normal LFTs.
PLAN:
#Sepsis-GI source versus pulmonary
Resolved .
#Acute colitis-patient presented with GI symptoms including nausea abdominal pain and not much diarrhea. She has CT evidence of colitis involving the rectosigmoid colon. No complication of abscess or perforation. Patient is immunosuppressed. C.
difficile is negative so far. Few white cells in stools noted. Shiga toxin negative. Salmonella/Campylobacter negative. Now on oral Levaquin.
Resolved GI symptoms. Tolerating solid diet.
(Interval history-granddaughter apparently had an acute short-lived episode of GI illness and she was with the patient at home. Potential changes with the health was GI track with nausea vomiting abdominal pain and small amount loose stools. She
then had respiratory symptoms or shortness of breath. Denies any dysphagia. Denies aspiration during her emesis.
#Shortness of breath and associated acute hypoxic respiratory failure
-She rapidly progressed with minimal symptoms to significant shortness of breath and also from requiring 2 L to now high flow oxygen.
-Chest x-ray blossomed very quickly from no findings to bilateral airspace disease. Chest CT yesterday shows multifocal pneumonia.
-Patient has a history of ILD
-Unclear if she had aspiration or this is multifocal infectious pneumonia or developing ARDS
-Her weight since admission has been stable. Her BNP was only 1600s. No evidence of acute FL. Doubt heart failure but will keep her negative. Lasix as needed; weight stable. Echocardiogram shows normal EF, no significant valvular heart disease
other than mild mitral regurgitation, mild TR.
-Resolved hypoxia. Currently on room air. Improved clinically. Antibiotic transitioned to Levaquin. Would need a CT of chest in 3 months to rule out any underlying lung nodules.
- Steroids taper per pulmonary
#Abnormal liver enzymes - Elevated tbili and alkpho with normal transaminases suggestive of cholestatic pattern. s/p seven, no biliary dilation.
- ggt is up.
- legionella ag negative.
-ultrasound of the abdomen shows no biliary pathology
-With thrombocytopenia and anemia rule out hemolytic process elevated bilirubin which is creeping up. Haptoglobulin high. Elevated LDH noted. Normal reticulocyte count and high haptoglobin refutes hemolysis.
-Appreciate GI input -signed off
- Improving
#Lupus - No skin rash
-Hold CellCept with active infection
-Check immunoglobulin panel and transfuse IVIG if less than 500 -pending
#Thrombocytopenia and anemia. No obvious evidence of hemolysis. No obvious external bleeding.
-No Schistocytes per hematology.
-Iron studies suggest anemia of chronic disease.
-Patient did say she was anemic in the past and needed transfusion.
-No obvious GI bleed. Patient did not have any bowel movement in 2 days. Heme test stools.
-In view of severe nature of anemia with hemoglobin 6.8 felt the benefits outweigh the risk of transfusion .d patient is agreeable for transfusion after weighing and the risks and benefits. Transfuse 1 unit of blood today.
#DAYRON suspect prerenal. Resolved.
#Metabolic acidosis-
-Elevated anion gap on admission noted may be related to DAYRON.
- Normalized
DVT PPX - lovenox sq
Code status - Full Code
PT /OT eval
Transfuse 1 unit of PRBC. If H&H remains stable discharge in a.m.
Anticipated Discharge: Within 24 hours
Subjective/Interval History
-
Date of Service: June 03, 2024
Feels progressively improved.
No abdominal complaints. Tolerating diet.
Occasional cough but no shortness of breath. Off of oxygen.
No fever chills.
Objective Data
-
Labs:
Laboratory Results
06/03/24
03:44
WBC 9.0
Hgb 6.8 L*
Hct 20.6 L*
Plt Count 81 L D
Sodium 135
Potassium 3.5
Chloride 104
Carbon Dioxide 22
BUN 24 H
Creatinine 0.6
Glucose 134 H
Calcium 8.5
Vital Signs:
Vital Signs
Temp Pulse Resp BP Pulse Ox
98 F 86 21 146/93 95
06/03/24 07:37 06/03/24 08:04 06/03/24 08:04 06/03/24 08:02 06/03/24 04:00
I&O
06/02/24 06/03/24 06/04/24
06:59 06:59 06:59
Intake Total 640 / 640 250 / 250
Output Total 250 / 250
Balance 390 / 390 250 / 250
Review of Systems
-
EENT: Denies Sore Throat
Cardiac: Denies Chest Pain
Neuro: Denies Dizzy
Physical Exam
-
General: No Apparent Distress
Respiratory: Crackles (Coarse crackles in the right lower zone ) and Non Labored Respirations; Negative Wheezes or Accessory Resp Muscle Use
Cardiac: Regular Rhythm, S1/S2 and Tachycardic
GI: Soft and Nontender
Neuro: AO x 3
Psych: Calm
Data Reviewed
-
Labs: Labs Reviewed by me
[2024-06-03 11:54] LABS: Glucose - Point of Care 174 mg/dl (70-99)
[2024-06-03] MEDS: ROBITUSSIN AC 10 ML PO ×2 (12:09→19:56)
[2024-06-03] MEDS: NOVOLOG FLEXPEN-MODERATE RESISTANCE 1 UNITS SC (12:09)
[2024-06-03] MEDS: SENOKOT-S 1 TABLET PO (12:10)
[2024-06-03] MEDS: LANTUS 0.05 UNITS SC (13:10)
[2024-06-03 14:39] LABS: Hematocrit 30.8 % (37.0-47.0); Hemoglobin 10.4 g/dL (12.0-16.0); Mean Corp Hgb Conc. 33.8 g/dL (33.0-37.0); Mean Corpuscular Hgb 30.1 pg (27.0-31.0); Mean Platelet Volume 11.6 fL (7.4-10.4); Platelet Count 93 10^3/uL (130-400); Red Blood Cell Count 3.46 10^6/uL (4.20-5.40); Red Cell Dist. Width 15.5 % (11.5-14.5)
[2024-06-03] MEDS: DILAUDID 0.5 MG IV ×2 (14:39→21:55)
[2024-06-03 14:45] LABS: APTT 25.1 Sec (23.4-35.0); INR 1.21; PT 15.6 Sec (11.4-14.6)
--- NOTE | 2024-06-03 17:20 | PTCARENOTE ---
patient in bed. Ambulates with supervision to bathroom . Chronic joints secondary to Lupus . Oxycodone per scheduled and Dilaudid prn administered with pain improvement. PRBC 1 unit administered earlier today . S/p infusing Hgb 10.4;
[2024-06-03] MEDS: NOVOLOG FLEXPEN-MODERATE RESISTANCE 3 UNITS SC (17:22)
[2024-06-03] MEDS: TESSALON PERLES 200 MG PO ×2 (17:34→21:54)
[2024-06-03] MEDS: LOVENOX 40 MG SC (17:34)
[2024-06-03 17:35] LABS: Glucose - Point of Care 231 mg/dl (70-99)
--- NOTE | 2024-06-03 20:00 | PTCARENOTE ---
Patient received sitting up in bed, awake, alert and oriented. In good spirits. Her son and DIL are at the bedside. No apparent signs of distress or discomfort. Receiving breathing treatment. Respirations tachypneic but nonlabored, sats are 97% on
RA. Pale in color, skin cool and dry. Scattered ecchymosis from venipunctures. Afebrile, VSS. Positive pulses x 4 extremities. BLE ankle edema 1+. Abdomen soft with hyperactive bowel sounds. DILLON clear, Right lung with crackles t/o. Left base with
crackles. Occasional loose NPC. She c/o discomfort between her shoulder blades as well as right lower ribcage pain--? pleuritic pain from pneumonia and pain from coughing. Pain 5/10. She is due for her scheduled Roxicodone now, given. Midline right
arm flushes easily. Left hand SL does not flush, dc'd, catheter intact. S1S2 regular, SR on CM. Patient assisted to bathroom. Her daugher in law Shoshana assisted patient with pm cares, bath. Gown changed and complete linen change. Assisted back to
bed. Bed low and in locked position. Call vang within reach.
[2024-06-03] MEDS: MELATONIN 5 MG PO (21:54)
--- NOTE | 2024-06-03 23:15 | PTCARENOTE ---
Assisted patient to the bathroom, urge to defecate. However, no BM, positive flatus. Assisted back to bed. Afebrile, BP stable, no change on CM. Pain is tolerable at 5/10. Essentially no change in assessment except RUL improved with less crackles.
DILLON clear and bilateral bases with crackles, right side 2/[address] up.
[2024-06-04] VITALS (11 sets, daily range): BP systolic 128–156; BP diastolic 68–90; BMI 35.1
[2024-06-04 00:26] LABS: IgA 147 mg/dl (70-400); IgG 762 mg/dl (700-1600); IgM 61 mg/dl (40-230)
--- NOTE | 2024-06-04 02:00 | PTCARENOTE ---
Patient is awake for scheduled pain medication. She states that her joints are very uncomfortable and her LE peripheral neuropathy is bothersome interfering with her ability to sleep. She rates her overall pain 8/10 and requests her prn Dilaudid as
well, given. Prn Cough syrup given for cough. Room darkened and quieted, door closed to promote sleep.
[2024-06-04] MEDS: ROBITUSSIN DM 5 ML PO (02:03)
[2024-06-04] MEDS: ROXICODONE 10 MG PO ×4 (02:04→22:15)
[2024-06-04] MEDS: DILAUDID 0.5 MG IV ×4 (02:08→22:55)
--- NOTE | 2024-06-04 04:00 | PTCARENOTE ---
Patient appears to be resting comfortably when undisturbed with eyes closed, lying still, respirations nonlabored. SR 70-80s on CM. No complaints offered.
[2024-06-04] MEDS: SYNTHROID 75 MCG PO (05:47)
[2024-06-04 06:49] LABS: Hematocrit 25.9 % (37.0-47.0); Hemoglobin 8.8 g/dL (12.0-16.0); Mean Corpuscular Hgb 30.1 pg (27.0-31.0); Mean Corpuscular Volume 88.7 fL (81.0-99.0); Mean Platelet Volume 10.8 fL (7.4-10.4); Platelet Count 85 10^3/uL (130-400); Red Blood Cell Count 2.92 10^6/uL (4.20-5.40); Red Cell Dist. Width 15.7 % (11.5-14.5); White Blood Cell Count 9.8 10^3/uL (4.8-10.8)
[2024-06-04 07:00] LABS: ALT (SGPT) 27 U/L (0-35); AST (SGOT) 22 U/L (14-36); Albumin 2.5 g/dl (3.5-5.0); Alkaline Phosphatase 166 U/L (38-126); Blood Urea Nitrogen 19 mg/dl (7-17); Calcium 8.7 mg/dl (8.4-10.2); Carbon Dioxide 27 mmol/L (22-30); Chloride 102 mmol/L (98-107); Estimated Creatinine Clearance 74 ml/min; Glucose 99 mg/dl (70-99); Potassium 3.5 mmol/L (3.5-5.1); Sodium 134 mmol/L (135-145); Total Bilirubin 1.4 mg/dl (0.2-1.3); Total Protein 4.9 g/dl (6.3-8.2); eGFR > 60.00
--- NOTE | 2024-06-04 07:02 | PTCARENOTE ---
Report given verbally to Lakshmi lomas RN. Questions answered.
[2024-06-04] MEDS: XOPENEX 1.25 MG INHALANT SOLUTION INH ×3 (07:15→20:04)
[2024-06-04] MEDS: ATROVENT NEBULES 0.5 MG INH (07:15)
[2024-06-04] MEDS: NOVOLOG FLEXPEN-MODERATE RESISTANCE SC ×2 (07:44→12:09)
[2024-06-04 07:54] LABS: Glucose - Point of Care 84 mg/dl (70-99)
[2024-06-04] MEDS: ROBITUSSIN AC 10 ML PO ×2 (08:03→22:15)
[2024-06-04] MEDS: THERAGRAN 1 TABLET PO (08:04)
[2024-06-04] MEDS: LEVAQUIN 750 MG PO (08:04)
[2024-06-04] MEDS: TESSALON PERLES 200 MG PO ×3 (08:04→22:15)
[2024-06-04] MEDS: DELTASONE 40 MG PO (08:05)
[2024-06-04] MEDS: ESTRACE 1 MG PO (08:05)
--- NOTE | 2024-06-04 09:00 | PTCARENOTE ---
Rec'd pt at 0800 awake alert and oriented resting in bed. States overall she slept well and feels ok. Admits in general to feeling sore 'all over' but mostly in her rib cage from coughing. Scheduled Roxicodone given. TRINA. Speech is clear. Does admit
to her mouth being sore from some 'mouth ulcers' offered to get something ordered for them but she just wanted to rinse with water. Skin is wm and dry. Respirs are shallow but non-labored at rest. Denies shortness of breath. BS with insp/exp
wheezing and crackles at the bases 1/4 up. Coughing an intermittent moist cough. After her am neb, blew her nose and was able to blow out a large clump of dk bloody/brown mucous and felt better after as she had stated her nose felt congested. RA
sats are 94%. Monitor SR. VS as documented. + pulses. +1 ankle edema. Denies chest pain. Abd is round soft non-tender with + BS. Denies nausea. Denies need to void currently. Capped midline intact R arm- site wnl. Repositioned. Plan of care reviewed
with pt. Call vang in reach.
[2024-06-04] MEDS: LANTUS 0.05 UNITS SC (09:09)
--- NOTE | 2024-06-04 09:55 | W.PN.ID1 ---
Date of Service
Date of Service: June 04, 2024
Today's Communication
Continue current course of levofloxacin.
Assessment / Plan
# Immunocompromise host: SLE on mycophenolate
# Fever - resolved
# Resolved hypoxemic respiratory failure
# Multifocal PNA - improving
- has not produced a sputum, blood cultures no growth to date
- continue levaquin to complete a 10 day course (05/30 to 06/08)
- On prednisone, per Pulm
- MMF currently on hold per oncology
# Gastroenteritis - resolved
- Recent Exposure to granddaughter with GI illness
- Recent N/V/D
- CT a/p mild bowel wall thickening sigmoid, rectum
- ABD US unremarkable GB
- C. diff - neg.
- norovirus PCR - neg
- Stool cx - negative.
# Acute thrombocytopenia
- Hem/Onc following
# Hyperbilirubinemia
- GI following
# Conditions [employer]
SLE on mycophenolate
History of interstitial lung disease
History of Sweet syndrome
Hypothyroidism
Fibromyalgia
hx SBO x2
Cholecystectomy
HODAN/BSO
Right Total knee replacement
Chief Complaint
-: Pneumonia and Other (colitis)
Subjective / Review of Systems
Review of Systems: No Fever, No Chills, No Cough, No Abdominal Pain and No Diarrhea
Vital Signs / Physical Exam
Vital Signs
Vital Signs
Temp Pulse Resp BP Pulse Ox
98 F 75 20 132/70 96
06/04/24 07:21 06/04/24 07:18 06/04/24 07:18 06/04/24 05:50 06/04/24 06:04
Physical Exam
Constitutional: No Acute Distress, Comfortable and Non-toxic
Cardiovascular: Regular Rate and S1/S2; Negative Murmur or Rub
Pulmonary: Clear, Symmetric and Non Labored; Negative Wheezes or Rales
Gastrointestinal: Soft, Non Tender, Non Distended and Normal Bowel Sounds
Skin: Warm and Dry; Negative Rash or Jaundice
Objective Data
Lab Data
Lab Results
06/04/24 05:55
06/04/24 05:55
ESR 141 mm/hour (0-20) H 06/01/24 09:39
PT 15.6 Sec (11.4-14.6) H 06/03/24 14:25
INR 1.21 06/03/24 14:25
APTT 25.1 Sec (23.4-35.0) 06/03/24 14:25
Estimated Creat Clear 74 ml/min 06/04/24 05:55
Lactic Acid 1.5 mmol/L (0.7-2.0) 05/29/24 05:19
Total Bilirubin 1.4 mg/dl (0.2-1.3) H 06/04/24 05:55
GGT 518 U/L (12-43) H 05/29/24 05:19
AST 22 U/L (14-36) 06/04/24 05:55
ALT 27 U/L (0-35) 06/04/24 05:55
Alkaline Phosphatase 166 U/L (38-126) H 06/04/24 05:55
C-Reactive Protein > 270.00 mg/L (0.0-10.00) H 06/01/24 10:43
Most recent labs reviewed.
Chest X-Ray: Image Reviewed
CT Scan: Image Reviewed
Micro Results:
05/29/24 12:59 Blood Culture - Final
Blood/Venous No Growth - Final Report
05/29/24 12:59 Blood Culture - Final
Blood/Venous No Growth - Final Report
05/30/24 09:32 Salmonella/Shigella Culture - Final
Feces/Stool No Salmonella, Shigella, Aeromonas or Plesiomonas species
isolated.
Campylobacter Culture - Final
No Campylobacter species isolated.
Shiga Toxin Test - Final
No E. coli Shiga Toxin 1 or 2 detected.
05/29/24 09:32 Stool Leukocytes - Final
Feces/Stool
05/29/24 09:32 C. difficile GDH Antigen & Toxins - Final
Feces/Stool Negative for toxigenic C.difficile
- Final
Negative for Norovirus GI and GII.
05/29/24 05:44 Legionella Urinary Antigen - Final
Urine Negative for Legionella pneumophila Serogroup 1 antigen.
A negative result does not rule out the possiblity of
Legionella infection due to other serogroups or species of
Legionella. Clinical correlation is recommended.
Streptococcus pneumoniae Antigen (M - Final
Negative for Streptococcus pneumoniae antigen.
A negative result does not exclude infection with
Streptococcus pneumoniae. Clinical correlation is
recommended.
05/28/24 18:40 Influenza Types A & B (DARLEEN) - Final
Nasal Swab Negative for Influenza A & B, NAAT
Negative results must be combined with clinical observations
and patient history.
Nucleic Acid Amplification test (NAAT)performed on the
[employer] platform.
05/28/24 CT a/p: Mild bowel wall thickening sigmoid , rectum and adjacent mesenteric inflammatory change adjacent to the rectosigmoid colon, consistent with colitis. Colitis is likely infectious or inflammatory. Patchy groundglass opacity at each
lung base. Nodular opacities in each lung base measuring up to 1.1 cm in diameter, as detailed above. Findings may be infectious or related to subsegmental atelectasis, however follow-up chest CT is suggested in 3-6 months to exclude pulmonary
nodules. Mild fatty infiltration of liver.
05/29/24 CXR: No active cardiopulmonary disease.
05/30/24 CXR: There is new hazy pleural-parenchymal airspace disease in the lower right lung which I favor is right middle lobe pneumonia, however, there may be a component of pleural fluid along the fissure on the right.
05/30/[address]: Bilateral multifocal pneumonia. Limited by motion degradation, as described. Pulmonary artery assessment in the lower lobes beyond the pulmonary arterial lobar segments is nondiagnostic. Otherwise, no pulmonary embolism is
identified.
[2024-06-04] MEDS: FLUSH (NSS) 1 FLUSH IV ×2 (10:27→16:19)
--- NOTE | 2024-06-04 10:30 | PTCARENOTE ---
Pt c/o 10/18 mostly lower L lateral chest discomfort from coughing per pt. In anticipation of getting oob and for the pain pt medicated with Dilaudid 0.5 mg IV. No other changes currently.
--- NOTE | 2024-06-04 11:01 | W.PN.PUL3 ---
Today's Communication / Plan
-
Antibiotics as per ID
Continue Xopenex; Atrovent DC'd due to drying out nasal-sinus passages and some bloody nasal secretions
She should be discharged home with a nebulizer for as needed use - CM says her neb machine will be delivered to her room here in the hospital
Tolerating diet
Encouraged incentive spirometer and up OOB as tolerated
Repeat chest imaging in 4 to 6 weeks to assure her pneumonia resolves
Repeat PFTs in the office to reassess her prior severe restrictive lung defect
Of note, CT chest imaging from 2018 showed no evidence of ILD, despite this being in her history
Serial H&H and have GI reevaluate the patient now that she is acutely anemic with reports of rectal bleeding 3 days ago
Continue Lantus 5 units given hyperglycemia towards the late afternoon/evening hours; as steroids taper will likely need to adjust/discontinue Lantus
Pulmonary service will continue to follow along. Outpatient follow-up will be arranged.
Assessment
-
Patient is a 68-year-old female with past medical history significant for DVT, lupus on cellcept, prior ILD, Sweet syndrome, fibromyalgia, hypothyroid presenting to emergency department with 5 days of nausea/vomiting, epigastric pain, loose
stools and shortness of breath. She also noted Tmax at home 103.6F. In ER, she was tachypneic (RR >20), tachycardic (HR 125), sat 94% on RA, BP 129/78. Denies sick contacts and Influenza/COVID testing negative. Other abnormal labs include: WBC
8.9 with 14% bands, Hb 9.8 Plt 65, Na 123 K 3.6 Bicarb 13 w/ AG of 18. She had slight elevation in LFTs, TB 2.8 Alk phos of 393.
A CT of the abdomen pelvis showed small patchy consolidation within the bilateral lower lobes, trace effusions likely reactive multifocal infection. Adm to floors on 05/29/24 for possible GI vs Pulm infection, placed on abx IV.
MATH AND SCIENCE DIVISION CHAIR called overnight on 05/30/24 for RR in 40s, SOB--resp distress on 4L, placed on HFNC. CXR showing interval increase in opacities. Transferred to ICU for further management.
Acute hypoxic respiratory failure requiring high flow nasal cannula, now on room air since 06/01
Multifocal PNA with multiple pulmonary nodules, particularly in the bases bilaterally
Nausea vomiting/epigastric pain/loose stools due to colitis
Fever
Bandemia - resolved
Thrombocytopenia
AGMA - resolved
Anemia (low reticulocyte production index: 0.3)
Rectal bleeding
Conditions present prior to admission
Hypothyroidism.
HLD
Sweet syndrome.
Lupus on Cellcept, hx of pleurisy
Interstitial lung disease followed by Dr. Gracia but has not f/u in many years
Severe restrictive lung disease, bronchiectasis-wears O2 2l via n/c
Last PFT 2008, TLC 29%
hx nephritis during childhood and at age 16
Fibromyalgia.
Migraines.
Cholecystectomy.
HODAN-BSO
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
Right total knee arthroplasty 07/19.
Scleritis/episcleritis
Obesity BMI 34.8
Plan
She is markedly improved compared to admission, currently on room air breathing comfortably and no abdominal pain, nausea or vomiting, tolerating her diet
Plan was for her to possibly go home on 06/03 but given her acute anemia requiring 1 unit PRBC transfusion, this was postponed
Her reticulocyte production index was low at 0.3 on 06/01/2024, indicating inadequate bone marrow response to anemia
She did have normal folate + B12 levels on 05/29/2024, and had normal iron studies on 05/31/2024; normal haptoglobin levels on 05/31/2024
Continue to trend H&H and trasnfuse if needed to keep Hb>7
Maintain large-bore IV x 2
Will have GI re-evaluate the patient as this acute anemia is now delaying discharge
Hematology on board --> recs appreciated; pt will follow with them after discharge
Saturating 94% today on room air --> check ambulatory pulse oximetry prior to discharge
Maintain SpO2>90%
Maintain MAP>65
Recent echo from 05/31/2024 showed mild PH with PASP 36 mmHg with preserved biventricular function
proBNP elevated at 1660 on 05/29 --> 1640 on 05/30 --> currently no Sx of volume overload
Lasix given x 1 on 05/30/2024 - consideration for continued treatment if needed
Monitor on telemetry
Prior history of lung disease: Reported Hx of ILD, but this is likely false as prior CTA chest from 02/13/2018 showed clear lungs; Hx of restrictive lung disease (severe - last TLC 29% from PFTs in 2008 --> PFTs need to be repeated in the office)
CXR/CT from this admission was personally reviewed indicating multifocal PNA
Airway clearance continued PRN
On 06/03 I started antitussants with codeine syrup and tessalon perles
Prednisone taper � currently on 30 mg and would reduce by 10 mg every fourth day until off (steroids were initially started given hypoxia in setting of CAP)
Continue Xopenex TID and DC atrovent due to dry nasal passages/sinuses; she says the nebs help her bring up phlegm; would send home with a nebulizer for as needed use (I consulted case management on 06/02) --> Can DC home with albuterol and
ipratropium, to be used q4-6hr prn
Encouraged PO intake, she is tolerating regular diet
Elementary Substitute Teacher recommendations
Aspiration precautions, HOB > 30 degrees
Speech therapy following
GI prophylaxis: Although she has acute anemia, have low suspicion for an UGIB given recent rectal bleeding and BUN only slightly high and is likely due to steroids
Creat at baseline, no history of renal disease
Follow urine output
Replete electrolytes as needed
sHCO3 now normalized - continue to trend
Fever and increased WBC on presentation, PNA noted r/o aspiration
Started on empiric antibiotics with ceftriaxone/Zithromax, and Flagyl started on 05/29/2024 --> cefepime started on 05/30, and she completed Zithromax on 06/01. Currently on Levaquin as per ID
Cultures sent/negative thus far to date
Monitor for fevers; trend WBC
She will need repeat imaging with CT chest in 4 to 6 weeks to assure her pneumonia/nodule opacities have improved/resolved
Received 1 U PRBC on 06/03
Coags were WNL with PT slightly elevated 15.6 seconds; keep INR<1.8
Would have GI see the pt now that she is acutely anemic and she reports rectal bleeding 3 days ago
Thrombocytopenia noted --> continue to trend and transfuse if needed to keep platelets >50k
Lupus on cellcept, being held--added on IV steroids given hypoxemia --> currently on prednisone 30mg daily --> trend down by 10mg every 4th day until off
DVT prophylaxis: LMWH --> if Hb is unstable today with repeat H/H at 1400 then would recommend holding chemical DVT ppx and use SCDs only in that scenario
Recommend to transfuse for Hb <7, plt < 50k
No prior h/o diabetes --BG slightly elevated
Goal BG >100 and <180mg/dL, using ISS to maintain this goal; given that she was continuing to spikes her BG at night, on 06/03 I started a low dose lantus at 5 units once daily. Need to re-assess this daily; my suspicion is that as the steroids are
weaned down that we can likely stop her basal insulin dosing
H/o hypothyroidism, can continue on home synthroid dose
Dr. Childers discussed code status with family, given her baseline lung history/restriction, she is at risk for prolongation on the vent
She is full code
Pulmonary service will continue to follow along. Outpatient follow-up will be arranged.
Diagnostic Data
Chest X-Ray: 05/30/24- Slight interval increase in opacification of the right lower lung, and this likely represents pneumonia. Airspace opacity within the left lower lung, compatible with pneumonia and/or atelectasis. Evidence for a small left
pleural effusion, stable.
CT Scan: CHEST 05/30/24- Limited by motion degradation, as described. Pulmonary artery assessment in the lower lobes beyond the pulmonary arterial lobar segments is nondiagnostic. Otherwise, no pulmonary embolism is identified. Bilateral multifocal
pneumonia. The examination was performed after-hours on an emergency basis, with initial preliminary interpretation provided by [facility].
Echo: 08/13/23- Normal left ventricular size, wall thickness and systolic function. No regional wall motion abnormalities are seen. LV ejection fraction is 60-65% by Poe's method of discs. Normal diastolic function. Normal right ventricular size
and function. Mitral valve opens normally. No mitral stenosis. Trace mitral regurgitation. Thickened trileaflet aortic valve with normal leaflet excursion. Aortic valve sclerosis. No aortic stenosis. No aortic regurgitation is seen. Tricuspid valve
opens normally. Mild tricuspid regurgitation. Estimated pulmonary artery pressure of 25-30 mmHg. Assuming a right atrial pressure of 3 mmHg.Compared to prior study 02/14/2018 aortic valve sclerosis is noted.
PFT's: 2008- FVC is 0.75 or 25%, FEV1 is 0.59 or 24%, Ratio of 78, FEF 25-75 is 0.56 or 23%. There is a 77% improvement in the FEF 25-75 following bronchodilator.
TLC is 1.29 or 29%, Diffusing capacity is 4.85 or 22% -- Severe mixed Obstructive and Restrictive Lung Disease with severe gas exchange defect.
Reports and relevant images were personally reviewed.
Total time spent today was 37 minutes for this encounter. Time includes reviewing laboratory test/imaging results, reviewing pertinent medical records, obtaining and reviewing medical history, performing an appropriate exam, ordering medications,
tests and procedures. Time also includes documentation of this encounter, coordinating patient care and communicating with other healthcare professionals. Total time does not include separately billed tests performed on this date of service.
Subjective Data
-
Date of Service:
Date of Service: June 04, 2024
Chief Complaint: Pulmonary Follow Up
Subjective:
Patient was seen and evaluated today at bedside. Patient's son, Ronnell, as well as [id number], Shoshana, both at bedside and all questions were answered. She feels well today, she blew out a large mucous plug from her nose and she feels like
she can finally breathe. Still no BM in the last 2 days. She does feel like her nose/sinuses is dried out a little bit. Otherwise she is breathing well on room air, saturating 94%. Afebrile overnight. Denies chest pain, RM, nausea, fevers or
chills.
Review of Systems
General: Other (Negative unless mentioned above)
Objective Data
Data Reviewed
Vital Signs / I&O / Oxygen:
Vital Signs
Temp Pulse Resp BP Pulse Ox
97.9 F 102 18 137/82 94
06/04/24 11:53 06/04/24 12:46 06/04/24 12:46 06/04/24 12:11 06/04/24 11:30
Intake and Output
06/03/24 06/04/24 06/05/24
06:59 06:59 06:59
Intake Total 250 / 250 800 / 800 540 / 540
Balance 250 / 250 800 / 800 540 / 540
SaO2 94
Nasal Cannula flow liters per 2
minute
Physical Exam
General: Respiratory Distress (negative), Comfortable, Chills (negative) and Sweats (negative)
HEENT: Normocephalic and Anicteric
Cardiovascular: S1-S2 and Peripheral Edema (Trace EMIGDIO b/l)
Respiratory: Wheeze (negative), Crackles (Bibasilar), Rhonchi (negative), Non-Labored Respirations and Stridor (n)
GI: Soft, Distended (Abdominal obesity), Non Tender and Normal Bowel Sounds
Neurology: AO x 3 and Tremors (negative)
Skin: Warm, Dry, Cyanosis (negative) and Jaundice (negative)
Labs/Micro/Reports
Lab Data
06/04/24 05:55
Laboratory Results
06/03/24
14:25
PT 15.6 H
INR 1.21
APTT 25.1
Microbiology
05/29/24 12:59 Blood/Venous Blood Culture - Final
No Growth - Final Report
05/29/24 12:59 Blood/Venous Blood Culture - Final
No Growth - Final Report
05/30/24 09:32 Feces/Stool Salmonella/Shigella Culture - Final
No Salmonella, Shigella, Aeromonas or Plesiomonas species
isolated.
05/30/24 09:32 Feces/Stool Campylobacter Culture - Final
No Campylobacter species isolated.
05/30/24 09:32 Feces/Stool Shiga Toxin Test - Final
No E. coli Shiga Toxin 1 or 2 detected.
--- NOTE | 2024-06-04 11:12 | PTOTSP ---
Speech Therapy
Patient complains of sternal retention with episodes of regurgitation that have been ongoing for ~18 months. She has not sought medical treatment for this, but GI consult pending during this hospital stay. Oral/pharyngeal swallow deemed within
functional limits without overt signs of aspiration.
Recommend:
1. No further skilled ST indicated as patient's oral/pharyngeal swallow deemed wfl and complaints and symptoms are consistent with esophageal dysphagia.
2. Regular solids and thin liquids if in line with GI recommendations.
3. Patient advised to avoid overly dry/dense solids. Upright during and for at least 30 minutes after meals; Rest breaks during meal
when feeling sternal retention; stand up briefly with sensation of retention; intersperse sip of liquid after every 2-3 bites of solid
--- NOTE | 2024-06-04 11:38 | W.PN.HOSP.TC ---
Today's Communication/Plan
-
Await further GI input
Monitor p.o. tolerance
Immunosuppressant on hold
Trend H&H
Steroids taper
PT/OT pending
Assessment / Plan
Assessment / Plan
IMPRESSION:
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
breath with mild O2 requirement is satting 94% on room air, GHAZAL has no cough but reports pleuritic chest pain and some difficulty breathing.
CT scan of the abdomen pelvis revealed patchy consolidation within the bilateral lower lobes related to multifocal infection unlikely, trace bilateral effusions also noted. The abdomen had no significant findings but was consistent with
gastroenteritis. Labs are notable for bandemia to 14%, bicarb of 13 with combination anion gap and non-anion gap metabolic acidosis and mild DAYRON. There is elevated total bilirubin and alk phos with normal LFTs.
PLAN:
#Sepsis-GI source versus pulmonary
Resolved .
#Acute colitis-patient presented with GI symptoms including nausea abdominal pain and not much diarrhea. She has CT evidence of colitis involving the rectosigmoid colon. No complication of abscess or perforation. Patient is immunosuppressed. C.
difficile is negative so far. Few white cells in stools noted. Shiga toxin negative. Salmonella/Campylobacter negative. Now on oral Levaquin.
Resolved GI symptoms. Tolerating solid diet.
(Interval history-granddaughter apparently had an acute short-lived episode of GI illness and she was with the patient at home. Potential changes with the health was GI track with nausea vomiting abdominal pain and small amount loose stools. She
then had respiratory symptoms or shortness of breath. Denies any dysphagia. Denies aspiration during her emesis.
#Shortness of breath and associated acute hypoxic respiratory failure
-She rapidly progressed with minimal symptoms to significant shortness of breath and also from requiring 2 L to now high flow oxygen.
-Chest x-ray blossomed very quickly from no findings to bilateral airspace disease. Chest CT yesterday shows multifocal pneumonia.
-Patient has a history of ILD
-Unclear if she had aspiration or this is multifocal infectious pneumonia or developing ARDS
-Her weight since admission has been stable. Her BNP was only 1600s. No evidence of acute SC. Doubt heart failure but will keep her negative. Lasix as needed; weight stable. Echocardiogram shows normal EF, no significant valvular heart disease
other than mild mitral regurgitation, mild TR.
-Resolved hypoxia. Currently on room air. Improved clinically. Antibiotic transitioned to Levaquin. Would need a CT of chest in 3 months to rule out any underlying lung nodules.
- Steroids taper per pulmonary
#Abnormal liver enzymes - Elevated tbili and alkpho with normal transaminases suggestive of cholestatic pattern. s/p seven, no biliary dilation.
- ggt is up.
- legionella ag negative.
-ultrasound of the abdomen shows no biliary pathology
-With thrombocytopenia and anemia rule out hemolytic process elevated bilirubin which is creeping up. Haptoglobulin high. Elevated LDH noted. Normal reticulocyte count and high haptoglobin refutes hemolysis.
-Appreciate GI input -signed off
- Improving
#Lupus - No skin rash
-Hold CellCept with active infection
-Check immunoglobulin panel and transfuse IVIG if less than 500 -level was 762 on 06/01/2024
#Thrombocytopenia and anemia. No obvious evidence of hemolysis. No obvious external bleeding.
-No Schistocytes per hematology.
-Iron studies suggest anemia of chronic disease.
-Patient did say she was anemic in the past and needed transfusion.
-No obvious GI bleed. Patient did not have any bowel movement in 2 days. Heme test stools.
-drop in Hgb at 6.8 yesterday s/p 1u of PRBC. Apprentice Instrument Technician correspondence noted. Patient and family want to discuss further with gi.
#DAYRON suspect prerenal. Resolved.
#Metabolic acidosis-
-Elevated anion gap on admission noted may be related to DAYRON.
- Normalized
DVT PPX - lovenox sq
Code status - Full Code
PT /OT eval pending
Discussed with son and other family member at bedside in details
Anticipated Discharge: Within 24 hours
Subjective/Interval History
-
Date of Service: June 04, 2024
states feeling better
states of nasal congestion
Objective Data
-
Labs:
Laboratory Results
06/04/24
05:55
WBC 9.8
Hgb 8.8 L
Hct 25.9 L
Plt Count 85 L
Sodium 134 L
Potassium 3.5
Chloride 102
Carbon Dioxide 27
BUN 19 H
Creatinine 0.7
Glucose 99
Calcium 8.7
Total Bilirubin 1.4 H
AST 22
ALT 27
Alkaline Phosphatase 166 H
Vital Signs:
Vital Signs
Temp Pulse Resp BP Pulse Ox
98 F 82 19 156/84 93
06/04/24 07:21 06/04/24 08:00 06/04/24 08:00 06/04/24 07:43 06/04/24 08:00
I&O
06/03/24 06/04/24 06/05/24
06:59 06:59 06:59
Intake Total 250 / 250 800 / 800
Balance 250 / 250 800 / 800
Data Reviewed
-
Total Time Spent with Patient (in minutes): 58
[2024-06-04 11:43] LABS: Glucose - Point of Care 148 mg/dl (70-99)
--- NOTE | 2024-06-04 11:45 | PTCARENOTE ---
AM care given and pt then assisted oob to the bathroom to void and then to the chair. Gait is slow but steady. Does get winded with activity and pt will admit her breathing gets tired but sats on RA remained 94%. Currently resting oob in the chair.
Family at the bedside. Callbell in reach
--- NOTE | 2024-06-04 12:38 | W.PN.GI.CBS2 ---
Addendum entered and electronically signed by Nicole Zhu MD 06/04/24 14:54:
Gi will s/o and will be available as needed
Original Note:
Today's Communication / Plan
-
-Outpatient setting colonoscopy in 6-8 weeks
-Laxatives as needed
Assessment / Plan
-
Ms Guzman is a 68-year-old female who has a PMH of interstitial lung disease, Sweet syndrome, fibromyalgia, hypothyroidism and SLE. She was admitted to hospital with shortness of breath and mild epigastric discomfort associated with feeling
nauseous and vomiting on 05/28/2024.Her chest CT was significant for pneumonia and her abd CT was significant for colitis for which she was started on empiric antibiotic treatment. She had a sick contact before admission and she had developed
dark-colored diarrhea at that time. She was consulted to GI team for her GI symptoms and elevated GGT,TB and DB levels. During her follow up, her lab results showed elevated GGT levels to 518, increasing direct bilirubin levels from 1.1 to
3.8, increasing total bilirubin from 1.9 to 5.5, no elevation with ALT and AST levels. Her Abd US was not remarkable for hepatobiliary problems. Patient`s GI symptoms was likely considered related to her sick contact and resolved. Her elevated
transaminitis and bilirubin levels considered secondary to her sepsis and seems improving. The patient was re-consulted to Gi team for re-evaluation for her anemia with a hgb level of 6.8 on 06/03/24 needed one unit of RBC transfusion. On today`s
exam, the patient denied any dark-colored stool or hematemesis. Reported her last bowel movement was 2 days ago. The patient refused a rectal exam and agreed a colonoscopy/endoscopy at outpatient setting.
Impression
Anemia
Gastroenteritis vs Colitis
Elevated bilirubin levels with Elevated GGT
Diarrhea
Multifocal PNA complicated with Acute hypoxemic respiratory failure
SLE on mycophenolate
Thrombocytopenia
Plan
#Anemia likely multifactorial
-Has Lupus on CellCept, being held
-Has cocurrent thrombocytopenia
-Patient refused rectal exam
-Hemoccult test will be done by caring team
-Episodes of dark-colored stool along colitis/symptoms resolved/ No BM last 2 days/laxatives as needed
-No signs of active lower GI bleeding
-Colonoscopy is due/planned to schedule as outpatient setting
#Gastroenteritis vs Colitis
-Abd CT on 05/28/24: inflammatory change adjacent to the rectosigmoid colon( consistent with colitis) and mild fatty liver
-Has a recent sick contact recently
-Stool studies are negative (C. difficile negative norovirus negative cultures also negative )Legionella Ag also negative
-Diarrhea has resolved
#Elevated bilirubin levels with Elevated GGT likely secondary to Sepsis vs Viral infections vs Medications
-s/p Cholecystectomy more than 10 years ago
-Hx of possible CBD stone in the past
-Abd US on 05/30 findings are not consistent with hepatobiliary disease/ not remarkable
-No new medication-Started on antibiotic during hospitalization
-Viral hepatitis serologies are negative
-TB are trending down/ AST-ALT N
It was discussed with the family to process with a outpatient setting colonoscopy in 6-8 weeks. Scheduling information is on discharge note. GI will sign off and will be available as needed
Subjective
Subjective
Date of Service: June 04, 2024
Audrey was seen in her chair, reporting feeling better. She reported that her last BM was 2 days ago and denies abdominal pain.
Objective
Data Reviewed
Laboratory Data:
Laboratory Results
06/04/24 05:55
06/04/24 05:55
Laboratory Results
PT 15.6 Sec (11.4-14.6) H 06/03/24 14:25
INR 1.21 06/03/24 14:25
APTT 25.1 Sec (23.4-35.0) 06/03/24 14:25
Magnesium 2.1 mg/dl (1.6-2.3) 05/30/24 20:10
Total Bilirubin 1.4 mg/dl (0.2-1.3) H 06/04/24 05:55
AST 22 U/L (14-36) 06/04/24 05:55
ALT 27 U/L (0-35) 06/04/24 05:55
Alkaline Phosphatase 166 U/L (38-126) H 06/04/24 05:55
Lipase 139 U/L (23-300) 05/30/24 07:17
Vital Signs and I&O:
Vital Signs
Temp Pulse Resp BP Pulse Ox
97.9 F 92 20 137/82 93
06/04/24 11:53 06/04/24 12:11 06/04/24 12:11 06/04/24 12:11 06/04/24 08:00
I&O
06/03/24 06/04/24 06/05/24
06:59 06:59 06:59
Intake Total 250 / 250 800 / 800
Balance 250 / 250 800 / 800
Physical Exam
Physical Exam
HEENT: Anicteric and Moist mucous membranes
Cardiology: Normal Sinus Rhythm, S1 and S2
Pulmonary: Clear
GI: Soft, Non Distended and Non Tender
Neuro: Non Focal
[2024-06-04] MEDS: SENOKOT-S 1 TABLET PO (12:39)
[2024-06-04] MEDS: KCL 40 MEQ PO (12:39)
--- NOTE | 2024-06-04 12:45 | PTCARENOTE ---
Remains sitting oob in the chair. Admits to feeling tired. GI in to see pt and updated. Pt has not moved her bowels yet. Encouraged to take the Miralax that is ordered prn but she does not want the Miralax, agreed to the Senna and senna given.
Agreed to a Dulcolax supp at 0600 tomorrow if she does not move her bowels. KCL 40 meq po given as ordered. Overall good appetite for lunch. No other changes.
--- NOTE | 2024-06-04 12:45 | W.PN.UPDATE ---
Update Note
Progress Note Update
Counts stable.
No objection to d/c. Will see me as outpt as I take care of one of her family members.
Full note to follow.
[2024-06-04] MEDS: MIRALAX 17 GRAMS PO (14:24)
--- NOTE | 2024-06-04 14:25 | PTCARENOTE ---
Pt assisted back to bed- states she is just sore. Scheduled Roxicodone given. Miralax given. Attempted to get blood from [facility] without success-will have IV team check. Unable to get blood x2 peripheral sticks.
--- NOTE | 2024-06-04 15:31 | VATNOTE ---
CBC obtained left wrist since [facility] not giving blood return at this time. Pt. expressed much frustration with staff attempting to obtain labs. Several calls by PCNLakshmi, made to phlebotomy without any help provided @ 1440 pm
[2024-06-04 15:32] LABS: Hematocrit 28.1 % (37.0-47.0); Hemoglobin 9.9 g/dL (12.0-16.0); Mean Corp Hgb Conc. 35.2 g/dL (33.0-37.0); Mean Corpuscular Hgb 30.6 pg (27.0-31.0); Mean Corpuscular Volume 86.7 fL (81.0-99.0); Mean Platelet Volume 10.8 fL (7.4-10.4); Platelet Count 90 10^3/uL (130-400); Red Blood Cell Count 3.24 10^6/uL (4.20-5.40); Red Cell Dist. Width 15.3 % (11.5-14.5); White Blood Cell Count 9.1 10^3/uL (4.8-10.8)
--- NOTE | 2024-06-04 16:20 | PTCARENOTE ---
CBC obtained by IV team at [address] Ramirez. Hgb 9.9. Pt assisted into the bathroom and had a mod amt of soft brown heme (-) stool. Pt states she feels better after moving her bowels. Vs as documented. Remedicated with Dilaudid 0.5
mg IV for 8/10 neuropathy as well as back and rib pain. No other changes
[2024-06-04] MEDS: LOVENOX 40 MG SC (18:09)
[2024-06-04 18:23] LABS: Glucose - Point of Care 179 mg/dl (70-99)
[2024-06-04] MEDS: NOVOLOG FLEXPEN-MODERATE RESISTANCE 1 UNITS SC (18:30)
--- NOTE | 2024-06-04 18:45 | PTCARENOTE ---
Earlier Diluadid took discomfort down to a 7. Pt ate dinner. Good appetite. Voided on the commode- yellow urine around 1700. Pt for transfer to tele. Report called and currently pt transferred via wheelchair to Rm [id number]. No other changes.
--- NOTE | 2024-06-04 20:18 | W.PN.ONC2 ---
Today's Communication / Plan
-
Hemoglobin stable.
No evidence of ongoing blood loss.
Outpatient follow-up with us.
Impression
Impression
b/l multifocal PNA/sepsis/respiratory failure
elevated LFTs
possible gastroenteritis
normocytic anemia, elevated ESR so suspect component of inflammation and dilution with IVF on sepsis protocol predominance of bladimir cells no schistocytes or atypical forms
acute thrombocytopenia
normal CBC in November 2023
SLE on chronic immunosuppression with cellcept
ILD
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
Plan
Plan
Hemoglobin mostly stable, she got 1 unit of packed red blood cells on June 03 for hemoglobin of 6.8, hemoglobin now 8.8 representing an appropriate increase.
Anemia workup unremarkable other than changes attributable to her acute illness.
Patient tells me she has been trying to get off her lupus medications, so question whether the cytopenias may be autoimmune in part. Patient says that Dr. Dahl has never mentioned cytopenias in the past.
Continues on prednisone 30 mg daily as well as CellCept.
Quantitative immunoglobulins were checked and normal.
Spleen size normal on ultrasound.
Patient to follow-up with me as an outpatient to verify resolution of cytopenias. She is the relative of one of my patients.
Subjective/Objective
Chief Complaint
Hematology follow-up of anemia and thrombocytopenia
Subjective
Currently feeling well.
Vital Signs:
Vital Signs
Temp Pulse Resp BP Pulse Ox
97.7 F 83 18 153/77 95
06/04/24 19:00 06/04/24 19:00 06/04/24 19:00 06/04/24 19:00 06/04/24 19:00
Lab Results:
Laboratory Data
WBC 9.1 10^3/uL (4.8-10.8) 06/04/24 15:12
Hgb 9.9 g/dL (12.0-16.0) L 06/04/24 15:12
Plt Count 90 10^3/uL (130-400) L 06/04/24 15:12
PT 15.6 Sec (11.4-14.6) H 06/03/24 14:25
INR 1.21 06/03/24 14:25
APTT 25.1 Sec (23.4-35.0) 06/03/24 14:25
eGFR > 60.00 06/04/24 05:55
Physical Exam
Awake, alert
Bilateral arm hematomas noted
HEENT: Moist Mucous Membranes; No Jaundice
Cardiology: Normal Sinus Rhythm, S1 and S2
Pulmonary: Clear
GI: Soft
Extremities: No C/C/E
Neuro: Non Focal
[2024-06-04 21:12] LABS: Glucose - Point of Care 201 mg/dl (70-99)
[2024-06-04] MEDS: MELATONIN 5 MG PO (22:15)
[2024-06-05] MEDS: ROXICODONE 10 MG PO ×2 (02:21→08:25)
[2024-06-05] MEDS: SYNTHROID 75 MCG PO (05:34)
[2024-06-05 06:38] LABS: Hematocrit 28.4 % (37.0-47.0); Hemoglobin 9.5 g/dL (12.0-16.0); Mean Corp Hgb Conc. 33.5 g/dL (33.0-37.0); Mean Corpuscular Hgb 30.5 pg (27.0-31.0); Mean Corpuscular Volume 91.3 fL (81.0-99.0); Mean Platelet Volume 10.5 fL (7.4-10.4); Platelet Count 101 10^3/uL (130-400); Red Blood Cell Count 3.11 10^6/uL (4.20-5.40); Red Cell Dist. Width 15.6 % (11.5-14.5); White Blood Cell Count 10.7 10^3/uL (4.8-10.8)
[2024-06-05 07:05] VITALS: BP 136/71
[2024-06-05] MEDS: ROBITUSSIN AC 10 ML PO (07:07)
[2024-06-05] MEDS: ZOFRAN 4 MG IV (07:07)
[2024-06-05 07:29] LABS: Glucose - Point of Care 92 mg/dl (70-99)
[2024-06-05] MEDS: XOPENEX 1.25 MG INHALANT SOLUTION INH (07:29)
[2024-06-05] MEDS: ESTRACE 1 MG PO (08:25)
[2024-06-05] MEDS: LANTUS 0.05 UNITS SC (08:25)
[2024-06-05] MEDS: DELTASONE 30 MG PO (08:25)
[2024-06-05] MEDS: TESSALON PERLES 200 MG PO (08:25)
[2024-06-05] MEDS: THERAGRAN 1 TABLET PO (08:25)
[2024-06-05] MEDS: LEVAQUIN 750 MG PO (08:25)
[2024-06-05] MEDS: NOVOLOG FLEXPEN-MODERATE RESISTANCE SC (08:35)
[2024-06-05 09:31] LABS: Absolute Neutrophils -Man Diff 6.2 10^3/uL (1.4-6.5); Anisocytosis 1+; Band Neutrophils 8 % (0-3); Eosinophils 2 % (0-6); Hypochromasia 1+; Lymphocytes 30 % (20-51); Metamyelocytes 4 % (-); Monocytes 5 % (2-9); Myelocytes 1 % (-); Normal RBC Morphology No; Ovalocytes FEW; Platelets Checked Yes; Polychromasia 1+; Segmented Neutrophils 50 % (42-75); Total Cells Counted 100
[2024-06-05] MEDS: DILAUDID 0.5 MG IV (10:05)
--- NOTE | 2024-06-05 11:16 | W.PN.HOSP.TC ---
Today's Communication/Plan
-
OP heme/rheum f/u
prednisone taper
Assessment / Plan
Assessment / Plan
IMPRESSION:
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
breath with mild O2 requirement is satting 94% on room air, GHAZAL has no cough but reports pleuritic chest pain and some difficulty breathing.
CT scan of the abdomen pelvis revealed patchy consolidation within the bilateral lower lobes related to multifocal infection unlikely, trace bilateral effusions also noted. The abdomen had no significant findings but was consistent with
gastroenteritis. Labs are notable for bandemia to 14%, bicarb of 13 with combination anion gap and non-anion gap metabolic acidosis and mild DAYRON. There is elevated total bilirubin and alk phos with normal LFTs.
PLAN:
#Sepsis-GI source versus pulmonary
Resolved .
#Acute colitis-patient presented with GI symptoms including nausea abdominal pain and not much diarrhea. She has CT evidence of colitis involving the rectosigmoid colon. No complication of abscess or perforation. Patient is immunosuppressed. C.
difficile is negative so far. Few white cells in stools noted. Shiga toxin negative. Salmonella/Campylobacter negative. Now on oral Levaquin.
Resolved GI symptoms. Tolerating solid diet.
(Interval history-granddaughter apparently had an acute short-lived episode of GI illness and she was with the patient at home. Potential changes with the health was GI track with nausea vomiting abdominal pain and small amount loose stools. She
then had respiratory symptoms or shortness of breath. Denies any dysphagia. Denies aspiration during her emesis.
#Shortness of breath and associated acute hypoxic respiratory failure
-She rapidly progressed with minimal symptoms to significant shortness of breath and also from requiring 2 L to now high flow oxygen.
-Chest x-ray blossomed very quickly from no findings to bilateral airspace disease. Chest CT yesterday shows multifocal pneumonia.
-Patient has a history of ILD
-Unclear if she had aspiration or this is multifocal infectious pneumonia or developing ARDS
-Her weight since admission has been stable. Her BNP was only 1600s. No evidence of acute [place]. Doubt heart failure but will keep her negative. Lasix as needed; weight stable. Echocardiogram shows normal EF, no significant valvular heart disease
other than mild mitral regurgitation, mild TR.
-Resolved hypoxia. Currently on room air. Improved clinically. Antibiotic transitioned to Levaquin. Would need a CT of chest in 3 months to rule out any underlying lung nodules.
- Steroids taper per pulmonary
#Abnormal liver enzymes - Elevated tbili and alkpho with normal transaminases suggestive of cholestatic pattern. s/p seven, no biliary dilation.
- ggt is up.
- legionella ag negative.
-ultrasound of the abdomen shows no biliary pathology
-With thrombocytopenia and anemia rule out hemolytic process elevated bilirubin which is creeping up. Haptoglobulin high. Elevated LDH noted. Normal reticulocyte count and high haptoglobin refutes hemolysis.
-Appreciate GI input -signed off
- Improving. OP repeat CMP.
#Lupus - No skin rash
-Hold CellCept with active infection. Patient will d/w further with Rheum and Heme about Cellcept.
-Check immunoglobulin panel and transfuse IVIG if less than 500 -level was 762 on 06/01/2024
#Thrombocytopenia and anemia. No obvious evidence of hemolysis. No obvious external bleeding.
-No Schistocytes per hematology.
-Iron studies suggest anemia of chronic disease.
-Patient did say she was anemic in the past and needed transfusion.
-No obvious GI bleed. No luminal bleeding noted.
- s/p 1u of PRBC. Hgb at 9.5. Per GI, no plan for intervention.
#DAYRON suspect prerenal. Resolved.
#Metabolic acidosis-
-Elevated anion gap on admission noted may be related to DAYRON.
- Normalized
DVT PPX - lovenox sq
Code status - Full Code
PT /OT home VN
Discussed with son and other family member at bedside in details on 06/04 and 06/05.
More than 30 minutes spent in discharge including
Final examination of the patient
Summarizing hospital stay
Instructions for continuing care to all relevant caregivers
Preparation of discharge records, prescriptions, and referral forms
Total time spent (in minutes): 55
Anticipated Discharge: Today
Subjective/Interval History
-
Date of Service: June 05, 2024
had bm large yesterday
feeling better
Objective Data
-
Labs:
Laboratory Results
06/05/24
05:26
WBC 10.7
Hgb 9.5 L
Hct 28.4 L
Plt Count 101 L
Vital Signs:
Vital Signs
Temp Pulse Resp BP Pulse Ox
98.5 F 82 18 136/71 96
06/05/24 07:05 06/05/24 07:05 06/05/24 07:05 06/05/24 07:05 06/05/24 07:05
I&O
06/04/24 06/05/24 06/06/24
06:59 06:59 06:59
Intake Total 800 / 800 1939
Balance 800 / 800 1939
Physical Exam
-
General: Well Developed, Well Nourished, No Apparent Distress and Obese
Respiratory: Clear to Auscultation and Non Labored Respirations; Negative Wheezes or Accessory Resp Muscle Use
Cardiac: Regular Rhythm, S1/S2 and Tachycardic
GI: Soft, Nontender, Nondistended and Normal Bowel Sounds
Neuro: Awake, Alert, Oriented, AO x 3 and No Motor Deficits
Psych: Calm
--- NOTE | 2024-06-05 11:32 | W.DCSUMMARY ---
Discharge Summary
Discharge Data
Date of Admission: 05/29/24
Date of Discharge: 06/05/24
-
Pending Results: No
Hospital Course
68-year-old female past medical history of hypothyroidism, hyperlipidemia, Sweet syndrome, lupus, immunosuppressed state, ILD, severe restrictive lung disease, fibromyalgia, migraines, obesity, DVT history is presenting with complaint of nausea
vomiting, abdominal pain loose stools and shortness of breath. Patient was found to be septic on admission. Abdominal CAT scan was done which showed consolidation in lung bilateral lobes but reactive multifocal infection. Patient was evaluated by
infectious disease, pulmonary, semiconductor technician and oncologist. Patient was also found to be in severe acute hypoxic respiratory failure and required high flow nasal cannula and transition to ICU. Patient was eval by datawarehouse developer in the
ICU.-Nasal cannula was slowly able to be weaned off. Patient with possible aspiration pneumonia episode. Patient was started on antibiotics per infectious disease. Patient was started on initially on ceftriaxone and Zithromax and Flagyl. Per
infectious disease antibiotics were narrowed to Levaquin eventually and transition to p.o. Levaquin on discharge. Patient will require repeat CT chest in 4 to 6 weeks to assess for resolution of pneumonia and monitor lung nodules. Patient was also
sent bronchodilators which was continued on discharge. Patient was also started on prednisone which was transitioned to taper regimen at discharge. Patient was able to be weaned off to room air. Patient did not qualify for home oxygenation.
Patient was also eval by gastroenterology. Patient nausea vomiting abdominal pain resolved. Of note patient with sick contact at home who also had GI related symptoms. Patient also had anemia and was evaluated by oncology. Patient with
thrombocytopenia and plan will be to hold CellCept until outpatient evaluation with rheumatology and oncology. Patient without any luminal bleeding. Hemoglobin remained stable post 1 unit of blood transfusion. Patient was tolerating diet without
any difficulty. Patient was on room air. Patient was eval by physical and Occupational Therapy to be discharged home.
Discharge Plan
-
Patient Disposition: Home with Home Care
Discharge Diagnosis/Procedures: Sepsis
Acute gastroenteritis/colitis
Anemia of chronic disease status post blood transfusion
Acute hypoxic respiratory failure
Possible aspiration event
Thrombocytopenia
Acute kidney injury
Metabolic acidosis
Hyperbilirubinemia
Condition: Fair
Diet: As tolerated
Activity: With assistance and As tolerated
Blood Work: cbc and cmp in 7 days via primary doctor.
Others Tests: Repeat chest imaging in 4 to 6 weeks to assure her pneumonia resolves
Referrals:
Any Ly MD [Active] - (call GI to arrange GI follow up 3-4 weeks to review for EGD/colon with anemia and colitis and follow up for elevated LFT's. [phone] ext [phone])
Sylwia Santos MD [Active] - None
Andrey Ramirez MD [Active] - in three to four weeks (full PFTs on day of office visit and repeat CT chest. )
Mariola Silva CRNP [Family Provider] - in less than 1 week
Prescriptions:
New
levofloxacin 750 mg Tablet
750 mg PO DAILY 3 Days Qty: 3 0RF
benzonatate 100 mg Capsule
200 mg PO TID PRN (Reason: Cough) 7 Days Qty: 42 0RF
ipratropium-albuterol 0.5 mg-3 mg(2.5 mg base)/3 mL solution for nebulization
3 ml inhalation Q6H PRN (Reason: wheezing/shortness of breath) 10 Days Qty: 90 0RF
prednisone 10 mg Tablet
See Rx Instructions .ROUTE .COMPLEX Qty: 20 0RF
Rx Instructions:
Take By Mouth:
30 mg daily x3 days,20 mg daily x4 days, 10 mg daily x4 days.
(DME) nebulizer and compressor Device
See Rx Instructions .Route Qty: 1 0RF
Rx Instructions:
As directed
Continued
levothyroxine 75 MCG tablet
75 mcg PO DAILY
estradiol 1 MG tablet
1 mg PO DAILY
multivitamin Tablet
1 tab PO DAILY
cholecalciferol (vitamin D3) [Vitamin D3] 50 mcg (2,000 unit) Capsule
50 mcg PO DAILY
omega 4-xoy-tbt-fish oil [Fish Oil] 1,000 (120-180) mg Capsule
1 cap PO DAILY
oxycodone 10 mg Tablet
10 mg PO QID
Held
mycophenolate mofetil [CellCept] 500 mg Tablet
1,500 mg PO DAILY
Hold Instructions: Resume on 07/02/24. Hold till d/w with hematology and Rheumatology
Discharge Orders:
Discharge Patient (As Directed); Ordered 06/05/24
Ordered By: Tyson Pena
Discharge Date and Time
Discharge Date/Time: 06/05/24 12:13
Print Language: SWEDISH
[2024-06-05 11:56] VITALS: BP 128/66
[2024-06-05 12:07] LABS: Glucose - Point of Care 164 mg/dl (70-99)
--- NOTE | 2024-06-05 12:19 | CM ---
MD entered order for discharge.
Weaned to room air.
Spoke with pt and Shoshana family member .Pt said she was ready for discharge.
PT said no needs / VN .
Offered VN she declined need.
IMM reviewed with Shoshana and pt . She said she understands and wants dc today.
Shoshana to drive her home.
PLAN Home no needs
== END 2024-06-05 12:13 | disposition home or self-care (01) | DRG 871 ==
LOC: 3 WEST ACU 02:35
PROVIDERS: Emergency Medicine; Internal Medicine; Internal Medicine Critical Care Medicine; Nurse Practitioner Family; Student in an Organized Health Care Education/Training Program; ADMITTING PHYSICIAN Internal Medicine; ATTENDING PHYSICIAN Hospitalist; CONSULT PHYSICIAN Internal Medicine; CONSULT PHYSICIAN Internal Medicine Gastroenterology; CONSULT PHYSICIAN Internal Medicine Hematology & Oncology; EMERGENCY PHYSICIAN Student in an Organized Health Care Education/Training Program; FAMILY PHYSICIAN Nurse Practitioner Adult Health; OTHER PHYSICIAN Internal Medicine Infectious Disease
PROC: 30233N1 Transfusion of Nonautologous Red Blood Cells into Peripheral Vein, Percutaneous Approach (ICD-10-PCS; 2024-05-29)
PROC: 5A0935A Assistance with Respiratory Ventilation, Less than 24 Consecutive Hours, High Flow/Velocity Cannula (ICD-10-PCS; 2024-05-30)
DX: A41.9 Sepsis, unspecified organism (principal); J18.9 Pneumonia, unspecified organism; J69.0 Pneumonitis due to inhalation of food and vomit; J96.01 Acute respiratory failure with hypoxia; E87.3 Alkalosis; D84.821 Immunodeficiency due to drugs; E87.29 Other acidosis; N17.9 Acute kidney failure, unspecified; A08.4 Viral intestinal infection, unspecified; D63.8 Anemia in other chronic diseases classified elsewhere; E03.9 Hypothyroidism, unspecified; M79.7 Fibromyalgia; M32.9 Systemic lupus erythematosus, unspecified; D69.6 Thrombocytopenia, unspecified; E78.5 Hyperlipidemia, unspecified; E66.9 Obesity, unspecified; E87.6 Hypokalemia; R65.20 Severe sepsis without septic shock; K76.0 Fatty (change of) liver, not elsewhere classified; Z79.624 Long term (current) use of inhibitors of nucleotide synthesis; Z68.35 Body mass index [BMI] 35.0-35.9, adult; Z96.651 Presence of right artificial knee joint; Z91.041 Radiographic dye allergy status; Z88.6 Allergy status to analgesic agent; Z88.1 Allergy status to other antibiotic agents; Z87.892 Personal history of anaphylaxis; Z87.891 Personal history of nicotine dependence; Z86.718 Personal history of other venous thrombosis and embolism; Z79.891 Long term (current) use of opiate analgesic; Z79.890 Hormone replacement therapy
CPT/HCPCS: 36600; 71045; 71046; 71275; 74176; 76700; 80048; 80053; 80076; 82248; 82607; 82728; 82746; 82784; 82805; 82962; 82977; 83010; 83036; 83540; 83550; 83605; 83615; 83690; 83735; 83880; 84145; 84484; 85025; 85027; 85045; 85610; 85652; 85730; 86015; 86038; 86140; 86308; 86381; 86704; 86708; 86709; 86803; 86850; 86880; 86900; 86901; 86920; 87040; 87045; 87046; 87324; 87340; 87427; 87449; 87502; 87798; 87811; 87899; 89055; 92526; 92610; 93005; 93306; 94640; 94660; 96361; 96365; 96375; 96376; 97162; 97166; 99285; P9016; Q9967

== ENCOUNTER 2024-06-19 12:54 | Inpatient (IN) | payer OTHER, SELFPAY ==
[2024-06-19] VITALS (8 sets, daily range): BP systolic 105–146; BP diastolic 58–77; PULSE 120; O2SAT 93; BMI 34.4; BMI 33.3
[2024-06-19 10:05] LABS: ALT (SGPT) 62 U/L (0-35); AST (SGOT) 46 U/L (14-36); Albumin 4.2 g/dl (3.5-5.0); Alkaline Phosphatase 392 U/L (38-126); Blood Urea Nitrogen 12 mg/dl (7-17); Calcium 9.3 mg/dl (8.4-10.2); Carbon Dioxide 23 mmol/L (22-30); Chloride 102 mmol/L (98-107); Glucose 123 mg/dl (70-99); Potassium 4.1 mmol/L (3.5-5.1); Sodium 136 mmol/L (135-145); Total Bilirubin 2.3 mg/dl (0.2-1.3); Total Protein 7.3 g/dl (6.3-8.2); eGFR > 60.00
[2024-06-19 10:09] LABS: Hematocrit 31.2 % (37.0-47.0); Hemoglobin 10.3 g/dL (12.0-16.0); Mean Corpuscular Hgb 30.8 pg (27.0-31.0); Mean Corpuscular Volume 93.4 fL (81.0-99.0); Mean Platelet Volume 8.5 fL (7.4-10.4); Platelet Count 83 10^3/uL (130-400); Red Blood Cell Count 3.34 10^6/uL (4.20-5.40); Red Cell Dist. Width 16.6 % (11.5-14.5); White Blood Cell Count 17.8 10^3/uL (4.8-10.8)
[2024-06-19 10:10] LABS: COVID-19 Antigen Negative (Negative)
--- NOTE | 2024-06-19 10:41 | ED.GENMED ---
History of Present Illness
General
Chief Complaint: Fever
Source: patient and family
Exam Limitations: none
Time Seen by Provider: 06/19/24 10:24
Nursing documentation reviewed up to this point in time: agreed with
History of Present Illness
History of Present Illness:
5-year-old female presents emergency ferment due to fevers for the past 4 days. She went to her primary care physician, and was referred to the hospital. Recent discharge for pneumonia.
Past History
Past History
ED Past Medical History: Fibromyalgia, Hypothyroidism, Other (Degenerative joint disease, osteoarthritis,, interstitial lung disease, sweet syndrome, migraines, Bowel obstruction,) and Other (Lupus/Sweet's syndrome)
ED Past Surgical History: Appendectomy, Cholecystectomy, Gynecological (Hysterectomy), Orthopedic and Other (Hysterectomy, right knee replacement )
Social History
Tobacco: Former smoker
Alcohol: None
Drug: None
Personal:
Living: with family
Family History
Family History: Negative Diabetes, Hypertension, Early CAD, Asthma or Cancer
Review of Systems
Review of Systems
Allergies reviewed?: Yes
All Other Systems: Not applicable
Constitutional: Reports fever and chills
EENT: Reports no symptoms
Respiratory: Reports cough
Cardiac: Reports no symptoms
ABD/GI: Reports no symptoms
: Reports dark urine
Musculoskeletal: Reports no symptoms
Skin: Reports no symptoms
Neurological: Reports no symptoms
Endocrine: Reports no symptoms
Hematologic/Lymphatic: Reports no symptoms
Psychiatric: Reports no symptoms
Phy Exam
Physical Exam
Physical Exam:
Physical Exam
General: Appears uncomfortable, temperature 97.8 oral
Neck: supple. no meningeal signs. normal posterior pharynx
Heart: s1/s2 tachycardia, no murmur. equal radial
pulses.
HEENT: Pupils equal round reactive to light, EOMI
Lungs: no acute respiratory distress. clear bilaterally
Abdomen: normal bowel sounds. not tender. no CVAT
Neuro: alert and oriented. no focal neurological deficits cranial nerves II through XII intact
Skin: no rash
Psychiatric: well kept. interactive and cooperative
Extremities: no edema. no calf tenderness. negative homans. good distal pulses
Course
Orders/Labs/Results
Orders:
Orders
06/19/24 09:26
Electrocardiogram (*1) Urgent
Reason for Study: Tachycardia
EKG- Treatment ONCE
06/19/24 09:38
COVID-19 Antigen Urgent
Source: Nasal Swab
Complete Blood Count/With Diff Urgent
Comprehensive Metabolic Panel Urgent
Influenza A+B Rapid Molecular Urgent
TOYIN Source: Nasal Swab
Specimen Description:
06/19/24 10:50
Urinalysis Reflex To Culture Urgent
Date Specimen was Collected: 06/19/24
Time Specimen was Collected: 10:46
Urine Microscopic Reflex Cult Urgent
Urine Culture Urgent
TOYIN Source: U
Specimen Description:
Date Specimen was Collected: 06/19/24
Time Specimen was Collected: 10:46
06/19/24 10:52
CR Chest - 2 Views Urgent
Comment:
Reason For Exam: fever, cough
06/19/24 11:07
Lactic Acid Q4H
Comment: CANCEL 2nd LACTIC ACID IF 1st LACTIC ACID IS LESS THAN 2
Blood Culture Q30M
TOYIN Source: Blood/Venous
Specimen Description:
06/19/24 11:45
Blood Culture Q30M
TOYIN Source: Blood/Venous
Specimen Description:
06/19/24 11:48
Acetaminophen [Tylenol] 650 mg .ROUTE .STK-MED ONE
Cefepime HCl [Maxipime] 2,000 mg IV NOW STA
06/19/24 11:49
Acetaminophen [Tylenol] 650 mg PO NOW STA
06/19/24 12:41
Admit/Transfer Patient As Directed
Co-Sign Provider:
Level of Care: Inpatient admission
Assign to:: Telemetry
Physician / Group: jose persaud
Diagnosis: Sepsis secondary to UTI, tachycardia
Reason for Telemetry: Arrhythmia
Date to Stop Telemetry: 06/22/24
Time to Stop Telemetry: 11:00
Reason for Hospitalization: Sepsis secondary to UTI, tachycardia
Expected length of stay greater than two midnights?: Yes
ELOS- Estimated Length of Stay in days: 3
I certify the patient meets the requirements for IP care: Yes
Code Status As Directed
Resuscitation Status: Full Code
06/19/24 12:45
PRN Pain Medication Management As Directed
May give lesser potent ordered pain med per pt: Yes
preference::
Protocol:: Medication orders for pain may be administered in a
manner that supports deferring to patient preference
when the pt is:
- Requesting an ordered lesser potent pain medication.
Least to most potent pain medications are defined
as: acetaminophen < NSAID < tramadol < opioids
(morphine, oxycodone, hydromorphone).
- Requesting a lesser dose of the same medication IF
ORDERED.
- Requesting a less intrusive route of administration
if both routes are prescribed by the provider (PO <
IV).
06/19/24 14:14
Ondansetron Injectable [Zofran] 4 mg IV Q6HPRN PRN
06/19/24 14:14
Activity As Directed
Activity Level: As Tolerated
Intake/ Output As Directed
Frequency: Per unit guidelines
Pneumatic Compression Sleeves As Directed
Type: Knee high
Vital Signs As Directed
Frequency: Per unit guidelines
Pulse Ox/spot Check [RESP] Routine
Quantity: 1
Ot Eval And Treat Routine
Pt Eval And Treat Routine
Activity Level: As Tolerated
DX Deep Vein Thrombosis Video Routine
06/19/24 14:53
Benzonatate [Tessalon Perles] 200 mg PO TID PRN
06/19/24 15:00
Oxycodone [Roxicodone] 10 mg PO QID
06/19/24 15:02
Ipratropium/Albuterol Sulfate [Duoneb] 3 ml INH R Q6HPRN PRN
06/19/24 15:15
0.9% Sodium Chloride 1000 ml [Nss] 1,000 ml IV 80 mls/hr
06/19/24 16:00
Acetaminophen [Tylenol] 650 mg PO Q4HPRN PRN
06/20/24 00:00
Cefepime HCl [Maxipime] 1,000 mg IV Q12H
06/20/24 06:00
Complete Blood Count/With Diff IN AM
Comprehensive Metabolic Panel IN AM
Levothyroxine [Synthroid] 75 mcg PO DAILY@0600
06/20/24 08:00
Cholecalciferol (Vitamin D3) [VITAMIN D3 (cholecalciferol)] 50 mcg PO DAILY
Estradiol [Estrace] 1 mg PO DAILY
Multivitamin [Theragran] 1 tablet PO DAILY
06/21/24 06:00
Complete Blood Count/With Diff IN AM
Comprehensive Metabolic Panel IN AM
06/22/24 06:00
Complete Blood Count/With Diff IN AM
Comprehensive Metabolic Panel IN AM
06/22/24 11:00
DC Protocol for Telemetry ONCE
06/23/24 06:00
Complete Blood Count/With Diff IN AM
Comprehensive Metabolic Panel IN AM
Abnormal Lab Results
06/19/24 06/19/24
09:38 10:50
WBC 17.8 H 10^3/uL
(4.8-10.8)
RBC 3.34 L 10^6/uL
(4.20-5.40)
Hgb 10.3 L g/dL
(12.0-16.0)
Hct 31.2 L %
(37.0-47.0)
RDW 16.6 H %
(11.5-14.5)
Plt Count 83 L 10^3/uL
(130-400)
Abs Immat Gran (auto) 1.7 H 10^3/uL
(0-0.05)
Absolute Neuts (auto) 11.9 H 10^3/uL
(1.4-6.5)
Absolute Monos (auto) 0.8 H 10^3/uL
(0.1-0.6)
Immature Gran % 9.3 H %
(0-0.5)
Lymphocytes % 19.1 L %
(20.5-51.1)
Glucose 123 H mg/dl
(70-99)
Total Bilirubin 2.3 H mg/dl
(0.2-1.3)
AST 46 H U/L
(14-36)
ALT 62 H U/L
(0-35)
Alkaline Phosphatase 392 H U/L
(38-126)
Urine Ketones 1+ A
(Negative)
Ur Occult Blood Reflex 4+ A
(Negative)
Urine Nitrite (Reflex) Positive A
(Negative)
Urine Bilirubin 1+ A
(Negative)
Urine Urobilinogen 2+ A
(Neg - 1+)
Leukocyte Esterase Rfl 1+ A
(Negative)
Urine RBC 7-10 A /HPF
(0-2)
Urine Bacteria (Reflex) Moderate A
(Negative)
Urine Albumin (Reflex) 2+ A
(Neg - Trace)
06/19/24 09:38
06/19/24 09:38
Vital Signs
Initial and Last Documented VS:
Initial Vital Signs
Temp Pulse Resp BP Pulse Ox
97.8 F 118 19 137/77 98
06/19/24 09:23 06/19/24 09:23 06/19/24 09:23 06/19/24 09:23 06/19/24 09:23
Last Documented Vital Signs
Temp Pulse Resp BP Pulse Ox
98.4 F 78 18 146/75 99
06/19/24 14:24 06/19/24 14:24 06/19/24 14:24 06/19/24 14:24 06/19/24 15:26
MDM/Problems Addressed
Differential Diagnosis Includes:
Sepsis, pneumonia
MDM/Problems Addressed:
68-year-old female with UTI, sepsis. Admit to hospitalist.
Chronic conditions affecting care: COPD
*Radiology
Radiology exam reviewed: radiology read reviewed (Chest x-ray no acute findings)
*Pulse Oximetry
Patient hypoxic: no
*EKG
Interpreted by ED Provider?: Yes
EKG Intrepretation Date: 06/19/24
EKG Intrepretation Time: 09:30
Interpretation: abnormal
Comparison EKG: no changes
Heart Rate: 111
Rate: tachycardiac
Rhythm: sinus tachycardia
[place]: normal axis
Interval: normal interval
QRS Pattern: normal QRS
Ischemia: no ischemia
*Chief Cook Interpretation
Rate: normal
Interpretation: normal
Heart Rate: 80
Rhythm: sinus
*Critical Care Note
Total Time (30-74mins, 75-104mins- exclusive of procedures): Not Applicable
Data Reviewed
Review of Other/Old Records Reveals: Labs
Patient Management
Social determinants of health affecting care: Living situation and Strong social support
Discussion with other providers: Hospitalist
Escalation/DeEscalation of care consider admission/obs:
Admit indicated
ED Attending Note
-
Portions of this chart may have been created with voice recognition software.� Occasional wrong word or��sound alike� substitutions may have occurred due to the inherent limitations of voice recognition software.
Discharge Plan
Departure
Patient Disposition: Admit
Date of Disposition: 06/19/24
Time of Disposition: 11:50
Admit to: Telemetry
Presentation/result/management discussed w/ accepting MD/DO: Hospitalist
Condition: Fair
Discharge Problem:
Sepsis, Acute UTI
Interventions
Interventions:
*Risk Screen - Suicide Last Done: 06/19/24 14:30
*General Assessment Last Done: 06/19/24 09:23
*Neglect/Abuse Screening Last Done: 06/19/24 09:23
*ED- Fall Risk Assessment Last Done: 06/19/24 10:28
*ED COVID-19 Vaccine History Last Done: 06/19/24 10:27
*Nursing Disposition Last Done: 06/19/24 14:45
ED- Neurological Assessment Last Done: 06/19/24 10:30
ED-Skin Assessment Last Done: 06/19/24 11:33
Discharge Date and Time
Discharge Date/Time: 06/19/24 14:00
[2024-06-19 11:01] LABS: Urine Albumin 2+ (Neg - Trace); Urine Bilirubin 1+ (Negative); Urine Character Clear (Clear); Urine Color Yellow; Urine Glucose Negative (Negative); Urine Ketone 1+ (Negative); Urine Leukocyte 1+ (Negative); Urine Nitrite Positive (Negative); Urine Occult Blood 4+ (Negative); Urine Urobilinogen 2+ (Neg - 1+)
[2024-06-19] MEDS: TYLENOL 650 MG PO ×2 (11:49→18:24)
[2024-06-19 11:50] LABS: Urine Calcium Oxalate Crystals Present; Urine Hyaline Cast 0-2 /LPF (0-2); Urine Mucus Moderate; Urine Squamous Cell >30 /LPF (Few)
[2024-06-19 11:52] LABS: Urine Bacteria Moderate (Negative); Urine White Cell 0-2 /HPF (0-5)
[2024-06-19 11:59] LABS: Lactic Acid 1.4 mmol/L (0.7-2.0)
[2024-06-19] MEDS: MAXIPIME 2000 MG IV (12:14)
--- NOTE | 2024-06-19 12:25 | HPS.HSE ---
Family Physician
-
Family Physician: NATHAN Spear
Chief Complaint
-
Malodorous urine fever x 4 days
History of Present Illness
Has been complaining of 100.3 F temperature starting on Tuesday evening 4 days ago. She did not notice any urinary symptoms until yesterday she reports an foul odor to her urine along with some nausea. She denies headache, sore throat, chest
pain, palpitations, productive cough, shortness of breath, abdominal pain, vomiting, diarrhea. She had recent admission 05/29-06/05 for bilateral lower lobe pneumonia,possible aspiration pneumonia along with severe acute hypoxic respiratory failure
secondary to ILD chronic immunosuppressed state including acute gastroenteritis/colitis. She was treated with IV antibiotics transition to oral Levaquin and steroids which she has finished. She is still using her home nebulizer 3 times a day and
has outpatient follow-up with pulmonology this week. Her CellCept is on hold due to thrombocytopenia until evaluation with hematology/rheumatology. She was also transfused 1 unit of blood due to anemia which will be worked up by hematology
oncology. She has past medical history of ILD, severe restrictive lung disease, fibromyalgia, Sweet syndrome, lupus, migraines, DVT, hyperlipidemia, hypothyroidism, obesity.
Medical History
Past Medical History
Past Medical History: Reports Hypothyroidism and Other (Lupus, fibromyalgia, interstitial lung disease (patient was at 1 point on home oxygen but now off), Sweet syndrome)
Past Surgical History: Reports Cholecystectomy, Gynocological (Total abdominal hysterectomy with bilateral salpingo-oophorectomy), Orthopedic (Knee replacement) and Tonsilectomy
Social History
Tobacco: Former Smoker
Alcohol: None
Drug: None
Personal:
Living: With Family
Employment: Retired
Family History
Family History: Not pertinent
Allergies / Home Medications
Allergies reflects when Allergies were last updated in [facility].
Home Medications with original date entered in [facility]
Allergy/Medication List:
Allergies
Allergy/AdvReac Type Severity Reaction Status Date / Time
adhesive Allergy Hives Verified 06/19/24 09:26
aspirin Allergy Anaphylaxis Verified 06/19/24 09:26
azathioprine [From Imuran] Allergy Nausea / Verified 06/19/24 09:26
Vomiting
doxycycline Allergy Nausea / Verified 06/19/24 09:26
Vomiting
iodine [Iodine] Allergy Anaphylaxis Verified 06/19/24 09:26
NSAIDS (Non-Steroidal Allergy Anaphylaxis Verified 06/19/24 09:26
Anti-Inflamma
prochlorperazine Allergy gnashing Verified 06/19/24 09:26
teeth
venom-honey bee Allergy bee Verified 06/19/24 09:26
stings-anaphylaxis
Home Medications
levothyroxine 75 mcg tablet 75 mcg PO DAILY Thyroid 08/21/09
estradiol 1 mg tablet 1 mg PO DAILY Hormonal agent 11/15/11
cholecalciferol (vitamin D3) 50 mcg (2,000 unit) capsule (Vitamin D3) 50 mcg PO DAILY Supplement 05/28/24
multivitamin 1 tab PO DAILY Supplement 05/28/24
mycophenolate mofetil 500 mg tablet (CellCept) 1,500 mg PO DAILY Lupus 05/28/24
omega 6-iio-tjy-fish oil 1,000 mg (120 mg-180 mg) capsule (Fish Oil) 1 cap PO DAILY Supplement 05/28/24
oxycodone 10 mg tablet 10 mg PO QID Pain 05/29/24
benzonatate 100 mg capsule 200 mg (2 x 100 mg) PO TID PRN Cough 7 days #42 caps 06/05/24
ipratropium 0.5 mg-albuterol 3 mg (2.5 mg base)/3 mL nebulization soln 3 ml inhalation Q6H PRN wheezing/shortness of breath 10 days #90 mL 06/05/24
nebulizer and compressor #1 ea 06/05/24
prednisone 10 mg tablet See Rx Instructions .Route .COMPLEX #20 tabs 06/05/24
Review of Systems
-
History Source: Patient and Family (Son Stu at bedside)
A 12 point ROS was completed and negative except as noted: Yes
Constitutional: Reports Fever and Chills
EENT: Denies Sore Throat or Runny Nose
Respiratory: Reports Cough (Chronic nonproductive); Denies Trouble Breathing
Cardiac: Denies Chest Pain, Diaphoresis, Palpitations or Syncope
Abdomen/GI: Reports Nausea; Denies Abdominal Pain, Vomiting, Diarrhea, Constipated, Bloody Stools or Black Stools
: Reports Other (Foul-smelling urine); Denies Dysuria, Frequency, Incontinence or Urgency
Musculoskeletal: Denies Joint Pain or Edema
Skin: Denies Itching or Rash
Neurological: Reports Weakness (Generalized due to fever); Denies Dizzy or Headache
Endocrine: Reports No Symptoms
Hematologic/Lymphatic: Reports No Symptoms
Psych: Reports Calm
Physical Exam
Vital Signs
Vital Signs
Temp Pulse Resp BP Pulse Ox
98.2 F 104 19 105/72 95
06/19/24 11:28 06/19/24 11:24 06/19/24 09:23 06/19/24 11:24 06/19/24 11:24
Physical Exam
General: Comfortable, Conversant, Fever and Chills
HEENT: NormoCephalic, Anicteric, Moist mucous membranes, PERRLA, [place] Conjunctivae and No Ptosis
Respiratory: Clear; No Wheezes, Rales, Rhonchi or Crackles
Cardiac: S1/S2 and Tachycardia (Sinus); No Murmur, Rub, Gallop or Peripheral Edema
Breast: Deferred by me
GI: Soft, Non Tender, Non Distended, Normal Bowel Sounds and No Hepatosplenomegaly
Rectal: Deferred by Provider
Musculoskeletal: No Clubbing, No Cyanosis and No Edema
Skin: Warm and Dry; No Rash, Jaundice or Ulcers
Neuro: AO x 3, No Motor Deficits, Nonfocal/grossly intact, Cranial Nerves Intact and No Sensory Deficits; No Slurred Speech, Facial Droop, Tremors or Sedated
Psych: Calm
Laboratory Results
-
06/19/24 09:38
06/19/24 09:38
Laboratory Results
Lactic Acid 1.4 mmol/L (0.7-2.0) 06/19/24 11:07
Total Bilirubin 2.3 mg/dl (0.2-1.3) H 06/19/24 09:38
AST 46 U/L (14-36) H 06/19/24 09:38
ALT 62 U/L (0-35) H 06/19/24 09:38
Alkaline Phosphatase 392 U/L (38-126) H 06/19/24 09:38
Impression/Plan
-
Impression/plan:
Admit to telemetry
#Sepsis secondary to UTI
Fever x 4 days, malodorous urine
WBC 17.8 with left shift, HR 104, 105/72
Has been taking Tylenol every 4-6 hours for the past 4 days
-Urine culture
-IV NSS 80 cc/h
-Tylenol as needed fever
-IV Cefepime 1 g every 12 hours
-Follow CBC, CMP, blood cultures x 2
-PT/OT/case management consult
CXR: Comparing to chest radiograph June 02, 2024 improvement in bilateral lower lung parenchymal opacities
#Acute transaminitis likely reactive in setting of sepsis
AST 46, ALT 62, alk phos 392, T. bili 2.3 will follow CMP
-Had negative Legionella, ultrasound of the abdomen benign during recent admission
-Was to follow-up with GI
#Chronic pain on chronic oral opiates
-Continue oxycodone 10 mg p.o. 4 times daily
#Recent multifocal pneumonia versus possible aspiration pneumonia(improving per recent CXR)
#History of ILD follows with pulmonary
-Finished course of inpatient antibiotics transition to oral Levaquin which she is finished
-Continue albuterol nebs 3 times daily
-Needs CT of the chest 3 months to rule out underlying pulmonary nodules
-Has appointment with pulmonology 06/27
CXR: Comparing to chest radiograph June 02, 2024 improvement in bilateral lower lung parenchymal opacities
#Lupus-no current skin rash
HOLD CellCept in setting of sepsis
Will need follow-up with her sinker puller and compensator worker
Immunoglobulin panel was 762 on 06/01/2024 to transfuse if less than 500 per recent admission
Thrombocytopenia/anemia of chronic disease�no acute bleeding
No schistocytes per hematology on recent admission
-Did receive 1 unit PRBC recent admission with hemoglobin at 9.5 on DC
-PLT 83, Hgb 10.3
-Will follow CBC
#History of Sweet syndrome
-No current rash to body
# Migraines-no current headache
DVT hx
#Hyperlipidemia
-No current meds
#Hypothyroidism
-Continue levothyroxine 75 mcg p.o. daily
Class I obesity
-Affects all aspects of care
Weight loss recommended
DVT prophylaxis
SCDs given plt 83
Full code
--- NOTE | 2024-06-19 13:10 | W.PN.UPDATE ---
Update Note
Progress Note Update
This is an addendum to the H&P written by Aggie Beltrán on 06/19/2024. Patient seen and examined independently with HYBRID CAR MECHANIC. 68-year-old female past medical history of hypothyroidism, lupus on CellCept currently on hold, fibromyalgia, ILD, Sweet
syndrome, migraines, hyperlipidemia, obesity, chronic pain on oral opiates, chronic transaminitis, with 4 days of fever and malodorous urine yesterday nausea.
She was recently admitted for multifocal pneumonia and colitis and completed course of antibiotics and steroids.
Patient is tachycardic with fever 100.2. Leukocytosis of 17.
Symptoms consistent with UTI however urinalysis showing only 0-2 white cells, although moderate bacteria, +1 leukocyte Estrace. Chest x-ray unremarkable, and showing improvement in infiltrate seen previously. COVID and flu negative.
Thrombocytopenia stable. Mild transaminitis on labs.
Patient with sepsis secondary to UTI. Does not appear to be any other source of infection at this time. Blood cultures, urine culture pending. IV fluids, cefepime. Continue to hold CellCept which was held off until she follow-up with
user support analyst.
[2024-06-19 14:21] LABS: % Basophils 0.3 % (0-2); % Eosinophils 0.2 % (0-6); % Immature Granulocytes 9.3 % (0-0.5); % Lymphocytes 19.1 % (20.5-51.1); % Monocytes 4.4 % (1.7-9.3); % Neutrophils 66.7 % (42.2-75.2); Absolute Basophils 0.1 10^3/uL (0-0.2); Absolute Immature Granulocytes 1.7 10^3/uL (0-0.05); Absolute Lymphocytes 3.4 10^3/uL (1.2-3.4); Absolute Monocytes 0.8 10^3/uL (0.1-0.6); Absolute Neutrophils 11.9 10^3/uL (1.4-6.5); Nucleated Red Blood Cells % 0 %
[2024-06-19] MEDS: NSS 1000 IV (15:26)
[2024-06-19] MEDS: ROXICODONE 10 MG PO ×3 (15:31→22:59)
[2024-06-19] MEDS: MAXIPIME 1000 MG IV (23:03)
[2024-06-19] MEDS: STERILE WATER FOR INJECTION 10 ML IV (23:04)
[2024-06-20] MEDS: TYLENOL 650 MG PO ×2 (01:49→11:56)
[2024-06-20 03:00] VITALS: BP 114/67
[2024-06-20] MEDS: NSS 1000 IV (04:44)
[2024-06-20 06:00] VITALS: BMI 33.8
[2024-06-20] MEDS: SYNTHROID 75 MCG PO (06:41)
[2024-06-20] MEDS: ROXICODONE 10 MG PO ×4 (07:04→21:51)
[2024-06-20 07:11] VITALS: BP 121/73
[2024-06-20 08:31] LABS: Hematocrit 28.1 % (37.0-47.0); Hemoglobin 9.3 g/dL (12.0-16.0); Mean Corp Hgb Conc. 33.1 g/dL (33.0-37.0); Mean Corpuscular Hgb 30.4 pg (27.0-31.0); Mean Corpuscular Volume 91.8 fL (81.0-99.0); Red Blood Cell Count 3.06 10^6/uL (4.20-5.40); Red Cell Dist. Width 16.4 % (11.5-14.5); White Blood Cell Count 15.5 10^3/uL (4.8-10.8)
--- NOTE | 2024-06-20 08:39 | W.PN.HOSP.TC ---
Today's Communication/Plan
-
IV antibiotics. Follow-up cultures. ID consult
Assessment / Plan
Assessment / Plan
Physical exam:
General: Acutely ill
HEENT: Normocephalic, Atraumatic and dry mucous Membranes, oral ulcers present
Respiratory: Clear to Auscultation; Negative Wheezes, Rales or Rhonchi
Cardiac: Regular Rhythm and S1/S2
GI: Soft, Nontender and Nondistended
Musculoskeletal: No Clubbing, No Cyanosis and No Edema
Neuro: Awake, Alert and Oriented, no neurological deficits, generalized weakness
Psych: Calm
A/P:
Febrile illness:
Unsure if sepsis present
Rule out infectious etiology
Suspect SLE related
Continue antibiotics but if cultures remain negative consider to discontinue over the next 24-48 hours
WBC 17.8--> 15.5
Blood cultures no growth but pending final identification
Urine culture no growth
Check influenza and COVID-19
Chest x-ray shows improvement from prior chest x-ray
ID consult-discussed with ID via [place] text
SLE:
Suspicious for lupus flare
Discussed with rheumatology over the phone today (Dr. Isak Brooks) and if indeed this is what we suspect then we can do pulsed doses of steroid such as methylprednisolone 200 mg for 2 to 3 days and restart CellCept 1000 mg 3 times daily for 6
g daily. On the other hand, we would not start until we are sure there is no active infection.
Check CRP and sed rate
Elevated LFTs:
Follow-up trend
Thrombocytopenia:
Suspect autoimmune related
If worsening or any signs of bleed might require transfusion but monitor for now
Anemia:
Hemoglobin 10.3--> 9.3
Continue to monitor closely
If any signs of bleeding or less than 7 then would consider blood transfusion
Hypothyroidism:
Continue thyroid replacement
Chronic pain with narcotic dependence:
Continue pain control
DVT prophylaxis:
SCDs
No pharmacological prophylaxis due to thrombocytopenia
CODE STATUS:
Full code
Total time spent on today's encounter was 52 minutes which included time spent in counseling the patient/family regarding diagnosis and treatment plan as listed above, goals of care, and symptom management. Case was discussed with nursing staff,
specialists, and care coordinators/case management. All labs and imaging personally reviewed by me. Remainder the time spent in detailed review of previous records, lab data, imaging, and other medical provider documentation.
Anticipated Discharge: > 48 hours
Subjective/Interval History
-
Date of Service: June 20, 2024
Patient still having fevers. She does complain of myalgia and arthralgias and oral ulcers as well as generalized malaise. No worsening cough or dysuria.
Objective Data
-
Labs:
Laboratory Results
06/20/24
07:54
WBC 15.5 H
Hgb 9.3 L
Hct 28.1 L
Plt Count Pending
Sodium Pending
Potassium Pending
Chloride Pending
Carbon Dioxide Pending
BUN Pending
Creatinine Pending
Glucose Pending
Calcium Pending
Total Bilirubin Pending
AST Pending
ALT Pending
Alkaline Phosphatase Pending
Vital Signs:
Vital Signs
Temp Pulse Resp BP Pulse Ox
99 F 110 22 114/67 99
06/20/24 07:11 06/20/24 07:11 06/20/24 07:11 06/20/24 03:00 06/20/24 07:11
I&O
06/19/24 06/20/24 06/21/24
06:59 06:59 06:59
Intake Total 960 / 960
Balance 960 / 960
[2024-06-20 08:54] LABS: ALT (SGPT) 46 U/L (0-35); AST (SGOT) 32 U/L (14-36); Albumin 3.5 g/dl (3.5-5.0); Alkaline Phosphatase 467 U/L (38-126); Blood Urea Nitrogen 9 mg/dl (7-17); Calcium 8.5 mg/dl (8.4-10.2); Carbon Dioxide 20 mmol/L (22-30); Chloride 104 mmol/L (98-107); Estimated Creatinine Clearance 69 ml/min; Glucose 102 mg/dl (70-99); Sodium 134 mmol/L (135-145); Total Bilirubin 2.4 mg/dl (0.2-1.3); Total Protein 6.3 g/dl (6.3-8.2); eGFR > 60.00
[2024-06-20] MEDS: ESTRACE 1 MG PO (09:30)
[2024-06-20 10:31] LABS: % Basophils 0.3 % (0-2); % Eosinophils 0.3 % (0-6); % Immature Granulocytes 7.9 % (0-0.5); % Lymphocytes 20.2 % (20.5-51.1); % Monocytes 6.1 % (1.7-9.3); % Neutrophils 65.2 % (42.2-75.2); Absolute Basophils 0.1 10^3/uL (0-0.2); Absolute Immature Granulocytes 1.2 10^3/uL (0-0.05); Absolute Lymphocytes 3.1 10^3/uL (1.2-3.4); Absolute Neutrophils 10.1 10^3/uL (1.4-6.5); Mean Platelet Volume 8.9 fL (7.4-10.4); Nucleated Red Blood Cells % 0 %; Platelet Count 49 10^3/uL (130-400)
[2024-06-20] MEDS: STERILE WATER FOR INJECTION 10 ML IV (11:20)
[2024-06-20] MEDS: MAXIPIME 1000 MG IV (11:21)
[2024-06-20] MEDS: ZOFRAN 4 MG IV (11:21)
[2024-06-20 11:59] VITALS: BP 121/69
--- NOTE | 2024-06-20 13:17 | CON.ID ---
Consultation
-
Date/Time Consultation Requested: 06/20/24 11:52
Date/Time Consultation Performed: 06/20/24 13:18
Requesting Provider: Dr Pettit
Performing Provider: Dr Ty
Reason for Consultation: Fever unclear source
Chief Complaint / Past History
Chief Complaint
Malodorous urine fever x 4 days
History of Present Illness
Ms Guzman is a 68 year old female with history of SLE on mycophenolate, interstitial lung disease/RLD, Sweet syndrome who presented here 06/19 for a 4 day history of elevated Ts to a maximum of 100.3 progressing to foul smelling urine and and nausea.
Endorses headache, Denies: neck stiffness, sore throat, chest pain, productive cough, shortness of breath, abdominal pain, vomiting, diarrhea, new rashes or new joint pains. Of note recently admitted here 05/29-06/05 for suspected aspiration
pneumonia and acute gastroenteritis/colitis. She was ultimately discharged with a 10 day course of levaquin 05/30-06/08 and prednisone taper from 30 mg for another 11 days (should be complete).
Since arrival here she has been spiking fevers to 102.6 maximum -now downtrending, BP overall stable without pressors, wbc initially 17 now 15.5 - baseline is normal, hgb 9.3, plt 49no L shift is noted, there are few eosinophils on the diff, cr 0.7,
na 134, t bili 2.4, ast 32, alt 46,alk phos 467, lactic acid 1.4, ua 0-2 wbc/hpf and many bacteria, 06/19 CXR 2 view: improved bilateral lower lung opacities, blood cultures x2 in progress no growth to date, urine culture no growths, flu negative,
covid ag negative, currently on cefepime, ID is consulted for assistance with management.
Past History
Additional Past Medical History:
SLE on mycophenolate
History of interstitial lung disease
History of Sweet syndrome
Hypothyroidism
Fibromyalgia
Additional Past Surgical History:
hx SBO x2
Cholecystectomy
HODAN/BSO
Right Total knee replacement
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
implantation and removal of intrathecal pain pump of the right transverse paramedian incision)
Allergy History:
adhesive Allergy (Verified 06/19/24:)
Hives
aspirin Allergy (Verified 06/19/24:)
Anaphylaxis
azathioprine [From Imuran] Allergy (Verified 06/19/24:)
Nausea / Vomiting
doxycycline Allergy (Verified 06/19/24:)
Nausea / Vomiting
iodine [Iodine] Allergy (Verified 06/19/24:)
Anaphylaxis
NSAIDS (Non-Steroidal Anti-Inflamma Allergy (Verified 06/19/24:)
Anaphylaxis
prochlorperazine Allergy (Verified 06/19/24:)
gnashing teeth
venom-honey bee Allergy (Verified 06/19/24:)
bee stings-anaphylaxis
Medications Reviewed: Yes
Social History
Tobacco: Former Smoker
Alcohol: None
Drug: None
Family History
Family History: Not Pertinent
Review of Systems
Review of Systems
General: Fever and Chills
All systems: All other systems were reviewed and were negative
Vital Signs
Temp Pulse Resp BP Pulse Ox
101.9 F H 125 22 121/69 93
06/20/24 11:59 06/20/24 11:59 06/20/24 11:59 06/20/24 11:59 06/20/24 11:59
Physical Exam
Physical Exam
Constitutional: Acutely Ill and Chronically Ill
Head: Other (supple neck)
Cardiovascular: Regular Rate and S1/S2; Negative Murmur or Rub
Pulmonary: Clear and Symmetric; Negative Wheezes, Rales or Rhonchi
Gastrointestinal: Soft, Non Tender, Non Distended and Normal Bowel Sounds
Skin: Warm and Dry; Negative Rash or Jaundice
Lab / Diagnostic Study Results
06/20/24 07:54
06/20/24 07:54
Abs Immat Gran (auto) 1.2 10^3/uL (0-0.05) H 06/20/24 07:54
Absolute Neuts (auto) 10.1 10^3/uL (1.4-6.5) H 06/20/24 07:54
Absolute Lymphs (auto) 3.1 10^3/uL (1.2-3.4) 06/20/24 07:54
Absolute Monos (auto) 1.0 10^3/uL (0.1-0.6) H 06/20/24 07:54
Absolute Basos (auto) 0.1 10^3/uL (0-0.2) 06/20/24 07:54
Immature Gran % 7.9 % (0-0.5) H 06/20/24 07:54
Neutrophils % 65.2 % (42.2-75.2) 06/20/24 07:54
Lymphocytes % 20.2 % (20.5-51.1) L 06/20/24 07:54
Monocytes % 6.1 % (1.7-9.3) 06/20/24 07:54
Eosinophils % 0.3 % (0-6) 06/20/24 07:54
Basophils % 0.3 % (0-2) 06/20/24 07:54
Lactic Acid Cancelled 06/19/24 14:30
Ur Squamous Epith Cells >30 /LPF (Few) 06/19/24 10:50
Microbiology Results
Micro:
06/19/24 11:45 Blood Culture - Preliminary
Blood/Venous No Growth in 24 hours- Final report to follow
06/19/24 11:07 Blood Culture - Preliminary
Blood/Venous No Growth in 24 hours- Final report to follow
06/19/24 10:50 Urine Culture - Final
Urine No Significant Growth
06/19/24 09:38 Influenza Types A & B (DARLEEN) - Final
Nasal Swab Negative for Influenza A & B, NAAT
Negative results must be combined with clinical observations
and patient history.
Nucleic Acid Amplification test (NAAT)performed on the
[employer] platform.
Assessment / Plan
Relapse of Fevers
Recent Multifocal Pneumonia
Immunosuppression: SLE on MMF
ILD
Sweet Syndrome
Thrombocytopenia
Contrast Allergy
- blood cultures x2 in progress
- obtain sputum if feasible
- urine culture negative
- CT chest with contrast
- pretreatment ordered
- last HYDROP[employer] [facility] evaluation 06/04: esophagea dysphagia and recommended 'avoid overly dry/dense solids. Upright during and for at least 30 minutes after meals; Rest breaks during meal
when feeling sternal retention; stand up briefly with sensation of retention; intersperse sip of liquid after every 2-3 bites of solid'
- may consider reconsulation for further education pending CT chest
- broaden to zosyn for now
- follow clinically
[2024-06-20] MEDS: ZOSYN 100 IV ×2 (14:10→20:03)
[2024-06-20 14:50] LABS: COVID-19 Antigen Negative (Negative)
[2024-06-20] MEDS: BENADRYL 50 MG IV (15:04)
[2024-06-20] MEDS: SOLU-CORTEF 200 MG IV ×2 (15:04→18:03)
[2024-06-20 15:28] VITALS: BP 111/70
--- NOTE | 2024-06-20 16:31 | PTOTSP ---
Speech Pathology
Clinical Swallow Evaluation
68F with admission for sepsis 2/2 UTI continues to present with a WFL oropharyngeal swallow. Concerns for esophageal dysphagia 2/2 reflux and c/o sternal retention. Recommend outpatient GI consult. Pt verbalized understanding and agreement.
Recommendations:
1. Regular textures, thin liquids if in line with GI recommendations
2. Meds as best tolerated
3. Strategies: Avoid overly dry/dense solids; Upright during and for at least 30 minutes after meals; Rest breaks during meal
when feeling sternal retention; stand up briefly with sensation of retention; intersperse sip of liquid after every 2-3 bites of solid
4. No further skilled ST indicated as patient's oral/pharyngeal swallow deemed WFL and complaints and symptoms are consistent with esophageal dysphagia.
--- NOTE | 2024-06-20 18:17 | CM ---
Attempted to meet patient for assessment however she was not in room. Will try again tomorrow or call family.
[2024-06-20 19:35] VITALS: BP 104/85
[2024-06-20 23:10] VITALS: BP 99/58
[2024-06-21] VITALS (9 sets, daily range): BP systolic 98–115; BP diastolic 50–63
[2024-06-21] MEDS: ZOFRAN 4 MG IV ×2 (00:46→13:08)
[2024-06-21] MEDS: ZOSYN 100 IV ×3 (01:56→13:41)
[2024-06-21] MEDS: SYNTHROID 75 MCG PO (05:14)
--- NOTE | 2024-06-21 07:37 | CON.ONC ---
Impression
Impression
68 year old female with complaints of fever x4d on chronic immune suppression with CellCept
SLE
Thrombocytopenia
Anemia
Plan
Plan
#SLE
- Has history of SLE, tx in the past with Mycophenolate, however stopped during last admission and has been off it for several weeks. Given elevated ESR/CRP/urine hyaline casts and the 12hr half life of mycophenolate, it is more likely that this
anemia/thrombocytopenia is the consequence of an acute Lupus flare, as opposed to a primary hematologic disorder or suppression from mycophenolate.
- Agree with pulse dose steroids if indicated to treat Lupus flare. 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
#Thrombocytopenia/Anemia
- As above, will suspect Lupus Flare as primary cause
- C/t observe Hgb/plts and transfuse if needed
Patient History
History of Present Illness
68 year old female with a past medical history significant for SLE presented to the ED with complaints of fever x4 days and x1 day of dark, foul smelling urine.
She had recently been hospitalized for AHRF secondary to pneumonia. During that time, she was stopped on her mycophenolate which she had been taking for her SLE. She was kept off the mycophenolate and discharged with Abx and prednisone. She finished
both and had been feeling well and was fever free until 06/15 when she began to feel the fevers return, with some as high as 102F. repeat outpatient CBC during that time revealed leukocytosis. She continued to try and drink fluids and take Tylenol
until the day before admission when she noticed her urine become dark and foul smelling, which she says is new. Up until that time she had noticed no abdominal pain, bloating, nausea, vomiting, sore throat, cough, bloody stools or sriram blood in the
urine. She reports no joint pain, rash or joint swelling during this time.
Presently she is endorsing a mild cough.
Past-Medical/Surgical History
PMHx: hypothyroidism, hyperlipidemia, Sweet syndrome, SLE, ILD, severe restrictive lung disease, fibromyalgia, migraines, obesity, DVT history, Mesenteric Cysts
Surgical: TLH w/ BSO, Ex lap
Patient Medication
�Medication �Instructions �Recorded �Confirmed �Last Taken �Type
levothyroxine 75 mcg tablet 75 mcg PO DAILY Thyroid 08/21/09 06/19/24 06/19/24 History
estradiol 1 mg tablet 1 mg PO DAILY Hormonal agent 11/15/11 06/19/24 06/19/24 History
cholecalciferol (vitamin D3) 50 50 mcg PO DAILY Supplement 05/28/24 06/19/24 2 Weeks Ago History
mcg (2,000 unit) capsule (Vitamin ~06/05/24
D3)
multivitamin 1 tab PO DAILY Supplement 05/28/24 06/19/24 2 Weeks Ago History
~06/05/24
mycophenolate mofetil 500 mg 1,500 mg PO DAILY Lupus 05/28/24 06/19/24 2 Weeks Ago History
tablet (CellCept) ~06/05/24
omega 5-ows-evi-fish oil 1,000 mg 1 cap PO DAILY Supplement 05/28/24 06/19/24 2 Weeks Ago History
(120 mg-180 mg) capsule (Fish Oil) ~06/05/24
oxycodone 10 mg tablet 10 mg PO Q6HPRN PRN sever pain 05/29/24 06/19/24 06/19/24 History
acetaminophen 500 mg tablet 1,000 mg PO Q6HPRN PRN mild pain 06/19/24 06/19/24 06/19/24 History
ipratropium 0.5 mg-albuterol 3 mg 3 ml inhalation TID Lung/Breathing 06/19/24 06/19/24 06/19/24 History
(2.5 mg base)/3 mL nebulization Issues
soln
melatonin 12 mg tablet 12 mg PO DAILY Sleep 06/19/24 06/19/24 2 Weeks Ago History
~06/05/24
ondansetron 8 mg disintegrating 8 mg PO Q8HPRN PRN nausea/vomitting 06/19/24 06/19/24 06/18/24 History
tablet
Active Medications
Generic Name Dose Route Start Last Admin
Trade Name Freq PRN Reason Stop Dose Admin
Acetaminophen 650 mg 06/19/24 16:00 06/20/24 11:56
Acetaminophen 325 Mg Tablet PO 07/17/24 15:59 650 mg
Q4HPRN PRN Administration
mild pain/RM/temp> 100.4F
Albuterol/Ipratropium 3 ml 06/19/24 15:02
Ipratropium 0.5/Albuterol 3 Mg (3 Ml Ampul) INH
R Q6HPRN PRN
wheezing/shortness of breath
Protocol
Benzonatate 200 mg 06/19/24 14:53
Benzonatate 100 Mg Capsule PO 07/17/24 14:52
TID PRN
Cough
Cholecalciferol 50 mcg 06/20/24 08:00 06/20/24 10:28
Cholecalciferol (Vitamin D3) 50 Mcg Tablet (2,000 Units) PO 07/18/24 07:59 Not Given
DAILY DONA
Estradiol 1 mg 06/20/24 08:00 06/20/24 09:30
Estradiol 1 Mg Tablet PO 07/18/24 07:59 1 mg
DAILY DONA Administration
Piperacillin Sod/Tazobactam Sod 4.5 gram in 100 mls @ 200 mls/hr 06/20/24 14:00 06/21/24 01:56
Zosyn IV 100 mls
Q6H DONA Administration
Levothyroxine Sodium 75 mcg 06/20/24 06:00 06/21/24 05:14
Levothyroxine 75 Mcg Tablet PO 07/18/24 05:59 75 mcg
DAILY@0600 DONA Administration
Multivitamins Therapeutic 1 tablet 06/20/24 08:00 06/20/24 10:28
Multivitamin Tablet PO 07/18/24 07:59 Not Given
DAILY DONA
Ondansetron HCl 4 mg 06/19/24 14:14 06/21/24 00:46
Ondansetron 4 Mg/2 Ml Vial IV 07/17/24 14:13 4 mg
Q6HPRN PRN Administration
nausea and vomiting
Oxycodone HCl 10 mg 06/19/24 15:00 06/20/24 21:51
Oxycodone 10 Mg Regular Release Tablet PO 07/03/24 14:59 10 mg
QID DONA Administration
Sodium Chloride 0 flush 06/20/24 17:00
Sodium Chloride 0.9% (Flush) Syringe IV 07/18/24 16:59
PER PROTOCOL DONA
Review of Systems
-
History Source: Patient
Constitutional: Reports Fatigue; Denies Fever, Weight Loss, Night Sweats or Chills
EENT: Denies Sore Throat or Blurry Vision
Respiratory: Reports Cough and Trouble Breathing; Denies Hemoptysis or Wheezing
Cardiac: Denies Chest Pain, Palpitations or Syncope
GI: Denies Abdominal Pain, Nausea, Vomiting, Diarrhea, Constipated or Bloody Stools
Breast: Reports No Symptoms
: Reports Dark Urine; Denies Dysuria, Frequency or Flank Pain
Musculoskeletal: Reports No Symptoms
Skin: Denies Itching or Rash
Neuro: Denies Dizzy, Headache or Weakness
Endocrine: Reports No Symptoms
Hematologic/Lymphatic: Reports No Symptoms
Allergy / Immunology: Reports No Symptoms
Psych: Reports No Symptoms
Physical Exam
-
General: Well Developed, Well Nourished, No Apparent Distress and Obese
HEENT: Moist Mucous Membranes
Cardiology: Normal Sinus Rhythm, S1 and S2
Pulmonary: Rales; Negative Clear, Wheezes or Rhonchi
GI: Soft and Normal Bowel Sounds
Genito-Urinary: No Costovertebral Tenderness
Musculoskeletal: No Clubbing, No Cyanosis and No Edema
Neurology: No Lateralizing Symptoms and No Word Finding Difficulty
Skin: Warm, Dry, IV Access / Catheter Site and No Ecchymosis
Hematologic / Lymphatic: No Lymphadenopathy and No Petechiae
Psych: Calm
Labs
Lab Results
WBC 15.5 10^3/uL (4.8-10.8) H 06/20/24 07:54
RBC 3.06 10^6/uL (4.20-5.40) L 06/20/24 07:54
Hgb 9.3 g/dL (12.0-16.0) L 06/20/24 07:54
Hct 28.1 % (37.0-47.0) L 06/20/24 07:54
MCV 91.8 fL (81.0-99.0) 06/20/24 07:54
MCH 30.4 pg (27.0-31.0) 06/20/24 07:54
MCHC 33.1 g/dL (33.0-37.0) 06/20/24 07:54
RDW 16.4 % (11.5-14.5) H 06/20/24 07:54
Plt Count 49 10^3/uL (130-400) L D 06/20/24 07:54
MPV 8.9 fL (7.4-10.4) 06/20/24 07:54
Abs Immat Gran (auto) 1.2 10^3/uL (0-0.05) H 06/20/24 07:54
Absolute Neuts (auto) 10.1 10^3/uL (1.4-6.5) H 06/20/24 07:54
Absolute Lymphs (auto) 3.1 10^3/uL (1.2-3.4) 06/20/24 07:54
Absolute Monos (auto) 1.0 10^3/uL (0.1-0.6) H 06/20/24 07:54
Absolute Eos (auto) 0.0 10^3/uL (0-0.7) 06/20/24 07:54
Absolute Basos (auto) 0.1 10^3/uL (0-0.2) 06/20/24 07:54
Immature Gran % 7.9 % (0-0.5) H 06/20/24 07:54
Neutrophils % 65.2 % (42.2-75.2) 06/20/24 07:54
Lymphocytes % 20.2 % (20.5-51.1) L 06/20/24 07:54
Monocytes % 6.1 % (1.7-9.3) 06/20/24 07:54
Eosinophils % 0.3 % (0-6) 06/20/24 07:54
Basophils % 0.3 % (0-2) 06/20/24 07:54
Creatinine 0.7 mg/dL (0.6-1.0) 06/20/24 07:54
Vital Signs
Vital Signs
Temp Pulse Resp BP Pulse Ox
98 F 87 18 109/63 94
06/21/24 03:55 06/21/24 03:55 06/21/24 03:55 06/21/24 03:55 06/21/24 03:55
[2024-06-21 07:42] LABS: Hematocrit 24.1 % (37.0-47.0); Hemoglobin 8.3 g/dL (12.0-16.0); Mean Corp Hgb Conc. 34.4 g/dL (33.0-37.0); Mean Corpuscular Hgb 31.3 pg (27.0-31.0); Mean Corpuscular Volume 90.9 fL (81.0-99.0); Mean Platelet Volume 9.4 fL (7.4-10.4); Platelet Count 49 10^3/uL (130-400); Red Blood Cell Count 2.65 10^6/uL (4.20-5.40); Red Cell Dist. Width 15.9 % (11.5-14.5); White Blood Cell Count 18.6 10^3/uL (4.8-10.8)
[2024-06-21 07:50] LABS: ALT (SGPT) 42 U/L (0-35); AST (SGOT) 30 U/L (14-36); Albumin 3.1 g/dl (3.5-5.0); Alkaline Phosphatase 471 U/L (38-126); Blood Urea Nitrogen 12 mg/dl (7-17); Calcium 8.7 mg/dl (8.4-10.2); Carbon Dioxide 21 mmol/L (22-30); Chloride 105 mmol/L (98-107); Complement C3 188 mg/dl (88-165); Creatine Phosphokinase 77 U/L (30-135); Estimated Creatinine Clearance 69 ml/min; Glucose 156 mg/dl (70-99); Sodium 136 mmol/L (135-145); Total Bilirubin 1.6 mg/dl (0.2-1.3); eGFR > 60.00
[2024-06-21 07:55] LABS: Potassium 3.6 mmol/L (3.5-5.1)
[2024-06-21 07:56] LABS: Erythrocyte Sed Rate 136 mm/hour (0-20)
[2024-06-21] MEDS: ESTRACE 1 MG PO (08:11)
[2024-06-21] MEDS: ROXICODONE 10 MG PO ×4 (08:11→21:37)
[2024-06-21 08:18] LABS: TSH Reflex To Free T4 0.29 uIU/ml (0.47-4.68)
--- NOTE | 2024-06-21 08:38 | W.PN.HOSP.TC ---
Today's Communication/Plan
-
IV antibiotics. See plan.
Assessment / Plan
Assessment / Plan
Physical exam:
General: Acutely ill
HEENT: Normocephalic, Atraumatic and dry mucous Membranes, oral ulcers present
Respiratory: Clear to Auscultation; Negative Wheezes, Rales or Rhonchi
Cardiac: Regular Rhythm and S1/S2
GI: Soft, Nontender and Nondistended
Musculoskeletal: No Clubbing, No Cyanosis and No Edema
Neuro: Awake, Alert and Oriented, no neurological deficits, generalized weakness
Psych: Calm
A/P:
Febrile illness:
Unsure if sepsis present
Rule out infectious etiology
Suspect SLE related
Continue antibiotics but if cultures remain negative consider to discontinue over the next 24-48 hours
WBC 17.8--> 15.5-->18.6 (of note she had received some steroids yesterday)
Blood cultures no growth but pending final identification
Urine culture no growth
Ordered influenza and COVID-19 and both negative
Chest x-ray shows improvement from prior chest x-ray
ID consult appreciated
Procalcitonin 2.09
CT scan of the chest ordered by ID and continues to show improvement of prior bilateral infiltrates
Pulmonary consult-discussed with pulmonary today
Fevers are coming down but unclear if due to steroids given prior to CT or to antibiotics. Will continue to monitor...
SLE:
Suspicious for lupus flare
Discussed with rheumatology over the phone yesterday (Dr. Isak Brooks) and if indeed this is what we suspect then we can do pulsed doses of steroid such as methylprednisolone 200 mg for 2 to 3 days and restart CellCept 1000 mg 3 times daily
for 6 g daily. On the other hand, we would not start until we are sure there is no active infection.
Check CRP and sed rate--> CRP 253, sed rate 136
TSH 0.29 and free T4 1.69
CPK 77
C3-C4 complements pending
Elevated LFTs:
Follow-up trend
Thrombocytopenia:
Hematology oncology consult
I have patient sign consent for blood transfusion today in case needed if platelets drop below certain threshold or active bleeding
Suspect autoimmune related
If worsening or any signs of bleed might require transfusion but monitor for now
Anemia:
Hemoglobin 10.3--> 8.3
I have patient sign consent for blood transfusion today in case hemoglobin drops below threshold or active bleeding
Continue to monitor closely
If any signs of bleeding or less than 7 then would consider blood transfusion
Hypothyroidism:
TSH 0.29 and free T4 1.69-->Continue thyroid replacement but will decrease doses of 75 mcg to 50 mcg p.o. daily
Chronic pain with narcotic dependence:
Continue pain control
DVT prophylaxis:
SCDs
No pharmacological prophylaxis due to thrombocytopenia
CODE STATUS:
Full code
Total time spent on today's encounter was 52 minutes which included time spent in counseling the patient/family regarding diagnosis and treatment plan as listed above, goals of care, and symptom management. Case was discussed with nursing staff,
specialists, and care coordinators/case management. All labs and imaging personally reviewed by me. Remainder the time spent in detailed review of previous records, lab data, imaging, and other medical provider documentation.
Anticipated Discharge: > 48 hours
Subjective/Interval History
-
Date of Service: June 21, 2024
Patient feels better today. Afebrile today. No nausea or vomiting
Objective Data
-
Labs:
Laboratory Results
06/21/24
06:55
WBC 18.6 H
Hgb 8.3 L
Hct 24.1 L
Plt Count 49 L
Sodium 136
Potassium 3.6
Chloride 105
Carbon Dioxide 21 L
BUN 12
Creatinine 0.7
Glucose 156 H
Calcium 8.7
Total Bilirubin 1.6 H
AST 30
ALT 42 H
Alkaline Phosphatase 471 H
Vital Signs:
Vital Signs
Temp Pulse Resp BP Pulse Ox
98.4 F 92 22 101/55 92
06/21/24 07:15 06/21/24 07:15 06/21/24 07:15 06/21/24 07:15 06/21/24 07:15
I&O
06/20/24 06/21/24 06/22/24
06:59 06:59 06:59
Intake Total 960 / 960 1660 / 1660
Balance 960 / 960 1660 / 1660
[2024-06-21 08:45] LABS: Free T4 1.69 ng/dl (0.78-2.19)
[2024-06-21 08:51] LABS: % Basophils 0.2 % (0-2); % Eosinophils 0.1 % (0-6); % Immature Granulocytes 8.5 % (0-0.5); % Lymphocytes 14.8 % (20.5-51.1); % Monocytes 4.7 % (1.7-9.3); % Neutrophils 71.7 % (42.2-75.2); Absolute Immature Granulocytes 1.6 10^3/uL (0-0.05); Absolute Lymphocytes 2.8 10^3/uL (1.2-3.4); Absolute Monocytes 0.9 10^3/uL (0.1-0.6); Absolute Neutrophils 13.4 10^3/uL (1.4-6.5); Nucleated Red Blood Cells % 0 %
--- NOTE | 2024-06-21 09:17 | CON.PUL ---
Consultation
Consultation Request
Date/Time Consultation Requested: 06/21/2024-8 AM
Date/Time Consultation Performed: 06/21/2024-8:30 AM
Requesting Provider: Hospitalist
Performing Provider: Dr. Marin
Reason for Consultation: Recurrent pneumonia
Medical History
-
Chief Complaint: Shortness of breath
History of Present Illness:
68-year-old female with a history of SLE, fibromyalgia, interstitial lung disease Sweet syndrome was recently hospitalized with pneumonia and returns with fevers, chest congestion and noted to have recurrent pneumonia-pulmonary consulted for
recurrent pneumonia 06/21/2024. Patient states that she does have occasional difficulty swallowing. Speech therapy is seeing the patient. She is trying to work on her swallowing technique. She has some chest congestion, cannot produce any sputum,
no fevers, chills, pleurisy, abdominal pain, nausea, focal weakness or increased lower extremity swelling.
Past Medical History
Past Medical History: None (SLE-on mycophenolate. Fibromyalgia. Hypothyroid. ILD previously on oxygen for 15 years and weaned once on immunosuppressives. Sweet syndrome. Cholecystectomy. SBO. Implantation/subsequent removal of intrathecal
pain pump. HODAN/bilingual salpingo-oophorectomy. Knee replacement. Tonsillectomy)
Social History
Tobacco: Former Smoker (Less than 5-pack-year quit many years ago)
Alcohol: None
Drug: None
Personal:
Living: With Family
Occupational Exposures: No known asbestos exposure
Environmental Exposures: No known tuberculosis exposure
Family History
Family History: Reviewed & Not Pertinent
Allergies / Home Medications
Allergies
Allergy/AdvReac Type Severity Reaction Status Date / Time
adhesive Allergy Hives Verified 06/19/24 09:26
aspirin Allergy Anaphylaxis Verified 06/19/24 09:26
azathioprine [From Imuran] Allergy Nausea / Verified 06/19/24 09:26
Vomiting
iodine [Iodine] Allergy Anaphylaxis Verified 06/19/24 09:26
NSAIDS (Non-Steroidal Allergy Anaphylaxis Verified 06/19/24 09:26
Anti-Inflamma
prochlorperazine Allergy gnashing Verified 06/19/24 09:26
teeth
venom-honey bee Allergy bee Verified 06/19/24 09:26
stings-anaphylaxis
doxycycline AdvReac Mild Nausea / Verified 06/20/24 13:39
Vomiting
Home Medications
�Medication �Instructions �Recorded �Confirmed �Last Taken �Type
levothyroxine 75 mcg tablet 75 mcg PO DAILY Thyroid 08/21/09 06/19/24 06/19/24 History
estradiol 1 mg tablet 1 mg PO DAILY Hormonal agent 11/15/11 06/19/24 06/19/24 History
cholecalciferol (vitamin D3) 50 50 mcg PO DAILY Supplement 05/28/24 06/19/24 2 Weeks Ago History
mcg (2,000 unit) capsule (Vitamin ~06/05/24
D3)
multivitamin 1 tab PO DAILY Supplement 05/28/24 06/19/24 2 Weeks Ago History
~06/05/24
mycophenolate mofetil 500 mg 1,500 mg PO DAILY Lupus 05/28/24 06/19/24 2 Weeks Ago History
tablet (CellCept) ~06/05/24
omega 3-uoj-sqw-fish oil 1,000 mg 1 cap PO DAILY Supplement 05/28/24 06/19/24 2 Weeks Ago History
(120 mg-180 mg) capsule (Fish Oil) ~06/05/24
oxycodone 10 mg tablet 10 mg PO Q6HPRN PRN sever pain 05/29/24 06/19/24 06/19/24 History
acetaminophen 500 mg tablet 1,000 mg PO Q6HPRN PRN mild pain 06/19/24 06/19/24 06/19/24 History
ipratropium 0.5 mg-albuterol 3 mg 3 ml inhalation TID Lung/Breathing 06/19/24 06/19/24 06/19/24 History
(2.5 mg base)/3 mL nebulization Issues
soln
melatonin 12 mg tablet 12 mg PO DAILY Sleep 06/19/24 06/19/24 2 Weeks Ago History
~06/05/24
ondansetron 8 mg disintegrating 8 mg PO Q8HPRN PRN nausea/vomitting 06/19/24 06/19/24 06/18/24 History
tablet
Review of Systems
Vitals / Labs / Diagnostic Testing
Vital Signs
Temp Pulse Resp BP Pulse Ox
98.4 F 92 22 101/55 92
06/21/24 07:15 06/21/24 07:15 06/21/24 07:15 06/21/24 07:15 06/21/24 07:15
Lab Data
06/21/24 06:55
06/21/24 06:55
Microbiology
06/19/24 11:45 Blood/Venous Blood Culture - Preliminary
No Growth in 24 hours- Final report to follow
06/19/24 11:07 Blood/Venous Blood Culture - Preliminary
No Growth in 24 hours- Final report to follow
06/19/24 10:50 Urine Urine Culture - Final
No Significant Growth
06/19/24 09:38 Nasal Swab Influenza Types A & B (DARLEEN) - Final
Negative for Influenza A & B, NAAT
Negative results must be combined with clinical observations
and patient history.
Nucleic Acid Amplification test (NAAT)performed on the
[employer] platform.
Diagnostic Testing:
Assessment
-
68-year-old female with a history of SLE, fibromyalgia, interstitial lung disease Sweet syndrome was recently hospitalized with pneumonia and returns with fevers, UTI, chest congestion and noted to have recurrent pneumonia-pulmonary consulted for
recurrent pneumonia 06/21/2024.
Recurrent pneumonia
Aspiration risk
Chronic immunosuppression-on mycophenolate
Interstitial lung disease
SLE with possible flare-CRP 253, ESR 136
Sweet syndrome
Thrombocytopenia
Transaminitis
[id number]-sctyjqayxx 8.3
Leukocytosis
Hyperglycemia
Conditions present prior to admission:
SLE-on mycophenolate.
Fibromyalgia.
Hypothyroid.
ILD previously on oxygen for 15 years and weaned once on immunosuppressives-followed by Dr. Gracia-has not followed up for many years-now has an appointment with Dr. Ramirez
Restrictive lung disease and bronchiectasis-PFT 2008 TLC 29%
History of nephritis during childhood age 16
Migraines
Sweet syndrome.
Cholecystectomy.
SBO.
Obesity-BMI 35
Contrast allergy
Chronic pain/narcotic dependence
Implantation/subsequent removal of intrathecal pain pump. HODAN/bilingual salpingo-oophorectomy. Knee replacement. Tonsillectomy
Plan
Mild respiratory decompensation possibly related to recurrent pneumonia, however, radiographs show improvement and signs and symptoms may be related to lupus flare
Supplemental oxygen as needed
Aspiration precautions
Speech therapy following-correspondence reviewed-regular diet with thin liquids
Nebulizers
Mucolytic's
Mucus clearing devices
Check cultures
Empiric antibiotics-Zosyn initiated
Infectious disease following-correspondence reviewed
Possible lupus flare with significantly elevated CRP as well as ESR
Outpatient medication mycophenolate
Primary service spoke to destination sign repairer-consider pulse steroids if not improving
Monitor liver functions
Monitor hemoglobin
Transfuse if needed
Monitor blood sugar
Insulin supplementation as needed
DVT prophylaxis recommended
Nutrition with aspiration precautions
Early mobilization/physical therapy
Reviewed with nursing
Patient has appointment with Dr. Ramirez 06/26/2024 at 11:30 AM
Diagnostic data:
Chest X-Ray: 05/30/24- Slight interval increase in opacification of the right lower lung, and this likely represents pneumonia. Airspace opacity within the left lower lung, compatible with pneumonia and/or atelectasis. Evidence for a small left
pleural effusion, stable.
Chest x-ray 06/02/2024-moderate bibasilar pneumonia improved on the right, progressed on the left
Chest x-ray 06/19/2024-improvement in bilateral lower lobe pneumonia
CT Scan: CHEST 05/30/24- Limited by motion degradation, as described. Pulmonary artery assessment in the lower lobes beyond the pulmonary arterial lobar segments is nondiagnostic. Otherwise, no pulmonary embolism is identified. Bilateral multifocal
pneumonia. The examination was performed after-hours on an emergency basis, with initial preliminary interpretation provided by [facility].
CT chest 06/20/2024-moderate left lower lobe pneumonia decreased since 05/30/2024 and decrease in right middle lobe pneumonia as well as bibasilar subsegmental atelectasis and small amount of intraluminal thrombosis in the descending thoracic aorta
and severe discogenic degenerative disc disease C6/C7
Echo: 08/13/23- Normal left ventricular size, wall thickness and systolic function. No regional wall motion abnormalities are seen. LV ejection fraction is 60-65% by Poe's method of discs. Normal diastolic function. Normal right ventricular size
and function. Mitral valve opens normally. No mitral stenosis. Trace mitral regurgitation. Thickened trileaflet aortic valve with normal leaflet excursion. Aortic valve sclerosis. No aortic stenosis. No aortic regurgitation is seen. Tricuspid valve
opens normally. Mild tricuspid regurgitation. Estimated pulmonary artery pressure of 25-30 mmHg. Assuming a right atrial pressure of 3 mmHg.Compared to prior study 02/14/2018 aortic valve sclerosis is noted.
PFT's: 2008- FVC is 0.75 or 25%, FEV1 is 0.59 or 24%, Ratio of 78, FEF 25-75 is 0.56 or 23%. There is a 77% improvement in the FEF 25-75 following bronchodilator.
TLC is 1.29 or 29%, Diffusing capacity is 4.85 or 22% -- Severe mixed Obstructive and Restrictive Lung Disease with severe gas exchange defect.
Data Reviewed
-
EKG: Report reviewed by me
Radiology: Image personally visualized and interpreted and Report reviewed by me
CT Scan: Image personally visualized and interpreted and Report reviewed by me
Medical Tests (Nuc Med, Echo etc): Report reviewed by me
Old Records: Reviewed
Total Time Spent with Patient (in minutes): 65
--- NOTE | 2024-06-21 09:24 | CM ---
Spoke with patient to obtain information. Patient stated that she lives in a one story home with her spouse, Justin. She described herself as independent with ADLs, personal care, dressing and bathing. She can do dermatologist and dermatopathologist like cook, clean and
do laundry. She ambulates independently. She has no DME. She has not had VN or been to a SNF.
Patient has a prescription plan and uses, [facility] for all of her medications.
Plan: Case management will continue to follow and assist with discharge planning. Will watch for VN needs.
--- NOTE | 2024-06-21 10:02 | W.PN.ID1 ---
Date of Service
Date of Service: June 21, 2024
Today's Communication
- would plan a longer course of treatment for what appears to be partially treated pneumonia in the setting of immunosuppression; would like to hold steroids and observe clinically, if she continues to clinically resolve on levaquin, then would
consider relapse of pneumonia as more likely than lupus flare
Assessment / Plan
Relapse of Fevers
Multifocal Pneumonia
Immunosuppression: SLE on MMF
ILD
Sweet Syndrome
Thrombocytopenia
Contrast Allergy
- blood cultures x2 in progress no growth to date
- obtain sputum if feasible
- urine culture negative
- CT chest with contrast- improving infiltrates
- note she did have hydrocortisone 200 mg on 06/20 as part of pretreatment for CT chest
- would plan a longer course of treatment for what appears to be partially treated pneumonia in the setting of immunosuppression; would like to hold steroids and observe clinically, if she continues to clinically resolve on levaquin, then would
consider relapse of pneumonia as more likely than lupus flare
- follow clinically
Chief Complaint
-: Fever and Pneumonia
Subjective / Review of Systems
afebrile
bp stable
increased, nonproductive cough which is bothersome to her
Vital Signs / Physical Exam
Vital Signs
Vital Signs
Temp Pulse Resp BP Pulse Ox
98.4 F 92 22 101/55 92
06/21/24 07:15 06/21/24 07:15 06/21/24 07:15 06/21/24 07:15 06/21/24 07:15
Physical Exam
Constitutional: No Acute Distress and Chronically Ill
Cardiovascular: Regular Rate and S1/S2; Negative Murmur or Rub
Pulmonary: Clear and Symmetric; Negative Wheezes or Rales
Gastrointestinal: Soft, Non Tender, Non Distended and Normal Bowel Sounds
Skin: Warm and Dry; Negative Rash or Jaundice
Objective Data
Lab Data
Lab Results
06/21/24 06:55
06/21/24 06:55
ESR 136 mm/hour (0-20) H 06/21/24 06:55
Estimated Creat Clear 69 ml/min 06/21/24 06:55
Lactic Acid Cancelled 06/19/24 14:30
Total Bilirubin 1.6 mg/dl (0.2-1.3) H 06/21/24 06:55
AST 30 U/L (14-36) 06/21/24 06:55
ALT 42 U/L (0-35) H 06/21/24 06:55
Alkaline Phosphatase 471 U/L (38-126) H 06/21/24 06:55
C-Reactive Protein 253.10 mg/L (0.0-10.00) H 06/21/24 06:55
Most recent labs reviewed.
Micro Results:
06/19/24 11:45 Blood Culture - Preliminary
Blood/Venous No Growth in 24 hours- Final report to follow
06/19/24 11:07 Blood Culture - Preliminary
Blood/Venous No Growth in 24 hours- Final report to follow
06/19/24 10:50 Urine Culture - Final
Urine No Significant Growth
06/19/24 09:38 Influenza Types A & B (DARLEEN) - Final
Nasal Swab Negative for Influenza A & B, NAAT
Negative results must be combined with clinical observations
and patient history.
Nucleic Acid Amplification test (NAAT)performed on the
[employer] platform.
Care Review
Plan reviewed with: Physician (Dr Hodan velez)
[2024-06-21 11:18] LABS: Procalcitonin 2.09 ng/ml (0.0-0.25)
[2024-06-21] MEDS: TESSALON PERLES 200 MG PO ×2 (13:13→23:11)
[2024-06-21] MEDS: DUONEB 3 ML INH (15:15)
[2024-06-21] MEDS: LEVAQUIN 750 MG PO (15:41)
[2024-06-21 16:36] LABS: Glucose - Point of Care 145 mg/dl (70-99)
[2024-06-21] MEDS: MAGIC OR MIRACLE MOUTHWASH 30 ML PO (17:12)
[2024-06-21] MEDS: TYLENOL 650 MG PO (17:16)
--- NOTE | 2024-06-21 18:03 | W.PN.UPDATE ---
Update Note
Progress Note Update
Notified by nursing staff, patient having 9 out of 10 substernal chest pain.
Pain is pressure-like, nonradiating.
EKG shows sinus tachycardia. First troponin 3.98.
Patient is allergic to aspirin�causes anaphylaxis.
Will start IV heparin drip, give oxygen, continue to trend troponins/EKG, consult cardiology, check echocardiogram, n.p.o. after midnight for possible intervention tomorrow.
Discussed with cardiology, will transfer to the IVU and start nitroglycerin drip.
--- NOTE | 2024-06-21 18:53 | PTCARENOTE ---
1626- Pt reporting chest heaviness. Provider made aware. EKG done per protocol for chest pain.
--- NOTE | 2024-06-21 19:32 | PTCARENOTE ---
1757 Pt to be transferred to IVU for nitro drip per provider fo critical trop.
--- NOTE | 2024-06-21 19:35 | PTCARENOTE ---
Report given to assigned nurse Saba. Pt in bed family at bedside. AAOX4. O2 @ 2 liters applied.
--- NOTE | 2024-06-21 19:45 | PTCARENOTE ---
Pt transferred to IVU via stretcher on telemetry. Family with pt.
--- NOTE | 2024-06-21 20:28 | CON.CAR ---
Consultation
Consultation Request
Date/Time Consultation Requested: 06/21/24
Date/Time Consultation Performed: 06/21/24
Requesting Provider:
Performing Provider: Hudson
Reason for Consultation: Chest pain, elevated troponin
Medical History
-
Chief Complaint: Fever
History of Present Illness:
68-year-old woman with recent admission for hypoxic respiratory failure in the setting of pneumonia requiring ICU admission. After approximately 2 weeks at home she developed low-grade fevers and foul-smelling urine and presented for evaluation.
Antibiotics were started for treatment of sepsis of unclear etiology with concern for possible UTI or pneumonia. This evening around 530 patient reported severe chest discomfort and troponin was checked and was elevated at 3.98. With concern for
NSTEMI patient was moved to the IVU and ordered for heparin drip and nitro drip. Aspirin was not started due to history of severe aspirin allergy.
At the time of my evaluation patient tells me that chest pain has been ongoing throughout the day. She has difficulty describing the quality, but uses the word ache to describe this, it seems to be substernal but also radiate to the shoulders and
arms. Pain has been worsened by deep inspiration, cough and chest wall palpation. Tells me she has never had similar pain in the past. Has had ongoing coughing due to pneumonia which was not productive previously but now is loosening by her
report..
PMHx:
SLE-on mycophenolate.
Fibromyalgia.
Hypothyroid.
ILD previously on oxygen for 15 years and weaned once on immunosuppressives
Restrictive lung disease and bronchiectasis-PFT 2008 TLC 29%
History of nephritis during childhood age 16
Migraines
Sweet syndrome.
Cholecystectomy.
SBO.
Obesity-BMI 35
Contrast allergy
Chronic pain/narcotic dependence
Implantation/subsequent removal of intrathecal pain pump
HODAN/bilingual salpingo-oophorectomy
Knee replacement
Tonsillectomy
Past Medical History
Past Medical History: Other (as above)
Past Surgical History: Other (as above)
Social History
Tobacco: Former Smoker
Personal:
Living: With Family
Family History
Family History: Reviewed & Not Pertinent
Allergies / Home Medications
Allergy/AdvReac Type Severity Reaction Status Date / Time
adhesive Allergy Hives Verified 06/19/24 09:26
aspirin Allergy Anaphylaxis Verified 06/19/24 09:26
azathioprine [From Imuran] Allergy Nausea / Verified 06/19/24 09:26
Vomiting
doxycycline Allergy Nausea / Verified 06/21/24 18:14
Vomiting
iodine [Iodine] Allergy Anaphylaxis Verified 06/19/24 09:26
NSAIDS (Non-Steroidal Allergy Anaphylaxis Verified 06/19/24 09:26
Anti-Inflamma
prochlorperazine Allergy gnashing Verified 06/19/24 09:26
teeth
venom-honey bee Allergy bee Verified 06/19/24 09:26
stings-anaphylaxis
�Medication �Instructions �Recorded �Confirmed �Type
levothyroxine 75 mcg tablet 75 mcg PO DAILY Thyroid 08/21/09 06/19/24 History
estradiol 1 mg tablet 1 mg PO DAILY Hormonal agent 11/15/11 06/19/24 History
cholecalciferol (vitamin D3) 50 50 mcg PO DAILY Supplement 05/28/24 06/19/24 History
mcg (2,000 unit) capsule (Vitamin
D3)
multivitamin 1 tab PO DAILY Supplement 05/28/24 06/19/24 History
mycophenolate mofetil 500 mg 1,500 mg PO DAILY Lupus 05/28/24 06/19/24 History
tablet (CellCept)
omega 0-kby-loq-fish oil 1,000 mg 1 cap PO DAILY Supplement 05/28/24 06/19/24 History
(120 mg-180 mg) capsule (Fish Oil)
oxycodone 10 mg tablet 10 mg PO Q6HPRN PRN sever pain 05/29/24 06/19/24 History
acetaminophen 500 mg tablet 1,000 mg PO Q6HPRN PRN mild pain 06/19/24 06/19/24 History
ipratropium 0.5 mg-albuterol 3 mg 3 ml inhalation TID Lung/Breathing 06/19/24 06/19/24 History
(2.5 mg base)/3 mL nebulization Issues
soln
melatonin 12 mg tablet 12 mg PO DAILY Sleep 06/19/24 06/19/24 History
ondansetron 8 mg disintegrating 8 mg PO Q8HPRN PRN nausea/vomitting 06/19/24 06/19/24 History
tablet
Review of Systems
-
History Source: Patient and Family
All other systems: Negative unless noted
Physical Exam
Vital Signs
Temp Pulse Resp BP Pulse Ox
98.6 F 120 18 98/50 98
06/21/24 20:15 06/21/24 20:15 06/21/24 20:15 06/21/24 18:26 06/21/24 20:15
Lab Results
06/21/24 18:00
06/21/24 06:55
Troponin I 3.980 ng/ml H* 06/21/24 17:02
Physical Exam
General: Well Developed
HEENT: Normocephalic
Respiratory: Wheezes, Non Labored Respirations and Other (On supplemental O2)
Cardiac: S1/S2 and Regular Rhythm (Tachycardic)
Breast: Deferred by me
GI: Soft
Musculoskeletal: No Edema
Skin: Warm and Dry
Neuro: Awake and Alert
Hematologic/Lymphatic: No Lymphadenopathy
Psych: Calm
Impression / Plan
-
[employer] Rover: Marlene
Assessment:
Elevated troponin
Chest pain
Thrombocytopenia/Anemia
Aspirin allergy
No calcific atherosclerotic plaque in the coronary arteries
Sepsis
Suspected PNA
SLE-on mycophenolate.
Fibromyalgia.
Hypothyroid.
ILD previously on oxygen for 15 years and weaned once on immunosuppressives
Restrictive lung disease and bronchiectasis-PFT 2008 TLC 29%
History of nephritis during childhood age 16
Migraines
Sweet syndrome.
Cholecystectomy.
SBO.
Obesity-BMI 35
Contrast allergy
Chronic pain/narcotic dependence
Implantation/subsequent removal of intrathecal pain pump
Plan:
-Patient reported chest discomfort and subsequent troponin found to be elevated at 3.9. Twelve-lead ECG at that time with sinus tachycardia and nonspecific T wave changes (my interpretation).
-Based on patient's description of the chest discomfort it sounds more likely to be costochondritis in the setting of recurrent pneumonia and ongoing coughing over the course of several weeks at this point
-More likely this represents nonischemic myocardial injury troponin elevation in the setting of sepsis
-Would repeat troponin and trend to peak
-Repeat twelve-lead ECG
-Check TTE in AM
-In regards to medical therapy, unable to give aspirin due to documented allergy. I am hesitant to start heparin drip at this time with thrombocytopenia (plts 49) and anemia (Hgb 8).
-Start rosuvastatin
-Blood pressure is marginal and therefore unlikely to tolerate nitro gtt
-Can give PRN morphine for chest pain
-Will defer treatment of sepsis to hospital medicine
Discussed with patient's son and nursing at bedside as well as cross cover hospitalist
Data Reviewed
-
EKG: Tracing Personally Visualized and interpreted
Radiology: Image Personally Visualized and interpreted and Report Reviewed by me
CT Scan: Image Personally Visualized and interpreted and Report Reviewed by me
Medical Tests (Nuc Med, Echo etc): Report Reviewed by me
Labs: Labs Reviewed by me
Old Records: Reviewed
[2024-06-21] MEDS: CRESTOR 20 MG PO (21:37)
[2024-06-21 22:16] LABS: Lactic Acid 2.1 mmol/L (0.7-2.0)
[2024-06-21] MEDS: MORPHINE SULFATE 4 MG IV (22:22)
[2024-06-22] VITALS (58 sets, daily range): BP systolic 41–161; BP diastolic 24–113
[2024-06-22] MEDS: TYLENOL 650 MG PO ×4 (00:28→18:38)
--- NOTE | 2024-06-22 02:19 | PTCARENOTE ---
Received pt from [facility] into 2252 @ 1950. Pt was transferred for CP to start HEP and Nitro gtts. Dr. Perkins at bedside to al. and wants to hold off on starting HEP and Nitro gtts. Labs and EKG performed. Lactic 2.1 Trop 3[address]
Morphine given for chest pain see JUN. Tom Wilson PLANNING SPECIALIST notified of lab results. wants to encourage po fluid intake. IV Team was notified to assess IV access and possible midline but pt refused when IV Team arrived. Call vang within reach. Son at bedside.
[2024-06-22] MEDS: MORPHINE SULFATE 4 MG IV ×5 (02:33→19:56)
[2024-06-22] MEDS: ZOFRAN 4 MG IV ×3 (02:33→19:56)
[2024-06-22] MEDS: NSS 1000 IV ×2 (03:12→16:18)
--- NOTE | 2024-06-22 03:16 | W.PN.UPDATE ---
Update Note
Progress Note Update
RN notified patient reported chest pain and nauseous. Patient seen and evaluated. Reports chest 'aches' with cough. Denies shortness of breath, HR 123 BP 108/58 sat 97% on 2 L RR 26 temp 102.8 rectal. Pain subsided with Morphine and zofran also
given for nausea. Patient with poor intake, lactic acid 2.1. Lung coarse. Will order NSS, await pending labs.
lab resulted, EKG ordered and results noted.
Merchandise Buyer made aware of the above situation, results of EKG and labs. Advised to trend Troponin. Orders in.
[2024-06-22 03:29] LABS: Hematocrit 23.3 % (37.0-47.0); Mean Corp Hgb Conc. 34.3 g/dL (33.0-37.0); Mean Corpuscular Hgb 31.5 pg (27.0-31.0); Mean Corpuscular Volume 91.7 fL (81.0-99.0); Mean Platelet Volume 10.3 fL (7.4-10.4); Platelet Count 48 10^3/uL (130-400); Red Blood Cell Count 2.54 10^6/uL (4.20-5.40); Red Cell Dist. Width 16.3 % (11.5-14.5); White Blood Cell Count 24.7 10^3/uL (4.8-10.8)
[2024-06-22 03:56] LABS: ALT (SGPT) 69 U/L (0-35); AST (SGOT) 94 U/L (14-36); Albumin 3.4 g/dl (3.5-5.0); Alkaline Phosphatase 576 U/L (38-126); Blood Urea Nitrogen 14 mg/dl (7-17); Calcium 8.8 mg/dl (8.4-10.2); Carbon Dioxide 20 mmol/L (22-30); Chloride 102 mmol/L (98-107); Estimated Creatinine Clearance 61 ml/min; Glucose 131 mg/dl (70-99); Magnesium 1.6 mg/dl (1.6-2.3); Sodium 135 mmol/L (135-145); Total Bilirubin 2.4 mg/dl (0.2-1.3); Total Protein 6.4 g/dl (6.3-8.2); eGFR > 60.00
[2024-06-22 04:22] LABS: % Basophils 0.2 % (0-2); % Immature Granulocytes 6.9 % (0-0.5); % Lymphocytes 8.5 % (20.5-51.1); % Monocytes 3.4 % (1.7-9.3); Absolute Basophils 0.1 10^3/uL (0-0.2); Absolute Immature Granulocytes 1.7 10^3/uL (0-0.05); Absolute Lymphocytes 2.1 10^3/uL (1.2-3.4); Absolute Monocytes 0.8 10^3/uL (0.1-0.6); Nucleated Red Blood Cells % 0.1 %
[2024-06-22] MEDS: OFIRMEV 100 IV (04:22)
--- NOTE | 2024-06-22 05:08 | PTCARENOTE ---
0230 Pt temp 100.9 ax, rectal temp taken 102.8 F H Steve WELCOME HOSTESS notified ordered IV Tylenol and IVF. Pt c/o chest pain and nausea Morphine and Zofran given IVP see JUN. EKG reads STEMI in lateral leads. Cardiology notified.
[2024-06-22] MEDS: XOPENEX 0.63 MG INHALANT SOLUTION INH (06:39)
[2024-06-22] MEDS: SYNTHROID 50 MCG PO (06:39)
[2024-06-22] MEDS: ESTRACE 1 MG PO (08:29)
[2024-06-22] MEDS: LEVAQUIN 750 MG PO (08:29)
--- NOTE | 2024-06-22 09:11 | PTCARENOTE ---
Alerted to low BP of 79/56 via tele monitor; Recycled BP without any improvement noted; Pt drowsy but response to voice and can be alert; Denied lightheadedness or dizziness; Pt Sinus Tach with HR ~ 120-130's; Cards and Hospitalist notified.
Pettit saw Pt at bedside and orders received for ICU tx and Levophed to keep MAP > 65. Levophed started. Will continue to monitor and assess
--- NOTE | 2024-06-22 09:16 | W.PN.CARDCBS ---
Today's Communication / Plan
-
Trend troponin to peak
Check echo
Impression / Plan
-
Nonprofit Manager: Marlene
Assessment:
Elevated troponin
Chest pain
Thrombocytopenia/Anemia
Aspirin allergy
No calcific atherosclerotic plaque in the coronary arteries
Sepsis
Suspected PNA
Aortic thrombus
SLE-on mycophenolate.
Fibromyalgia.
Hypothyroid.
ILD previously on oxygen for 15 years and weaned once on immunosuppressives
Restrictive lung disease and bronchiectasis-PFT 2008 TLC 29%
History of nephritis during childhood age 16
Migraines
Sweet syndrome.
Cholecystectomy.
SBO.
Obesity-BMI 35
Contrast allergy
Chronic pain/narcotic dependence
Implantation/subsequent removal of intrathecal pain pump
Plan:
-Patient reported chest discomfort and subsequent troponin found to be elevated at 3.9 now rising up to 6.9.
-Twelve-lead ECGs with sinus tachycardia and nonspecific T wave changes, but no acute injury pattern (my interpretation).
-Patient's description of the chest discomfort is atypical by definition and it sounds more likely to be costochondritis in the setting of pneumonia and cough
-Suspect troponin elevation is nonischemic myocardial injury troponin elevation in the setting of sepsis +/- lupus flare +/- ? DIC (aortic thrombus)
-Trend to peak
-Check TTE - EF was previously normal
-In regards to medical therapy, unable to give aspirin due to documented allergy and I am hesitant to start heparin drip at this time with thrombocytopenia (plts 48) and anemia (Hgb 8)
-Started on high intensity statin
-Currently hypotensive therefore will avoid nitrates
-Can give PRN morphine for chest pain
-Will defer treatment of sepsis to hospital medicine
Discussed with patient's family at bedside
Progress Note - Nonprofit Manager
Subjective
Date of Service: June 22, 2024
Ongoing chest discomfort overnight being treated with PRN morphine, tells me coughing or change in position will bring the pain on. Breathing is comfortable. BP low this AM, tentatively planned for xfer to ICU.
Objective
Labs:
06/22/24 03:18
06/22/24 03:18
Labs
Hgb 8.0 g/dL (12.0-16.0) L 06/22/24 03:18
Hct 23.3 % (37.0-47.0) L 06/22/24 03:18
Plt Count 48 10^3/uL (130-400) L 06/22/24 03:18
APTT Cancelled 06/21/24 18:00
Sodium 135 mmol/L (135-145) 06/22/24 03:18
Potassium 4.0 mmol/L (3.5-5.1) 06/22/24 03:18
BUN 14 mg/dl (7-17) 06/22/24 03:18
Creatinine 0.8 mg/dL (0.6-1.0) 06/22/24 03:18
Glucose 131 mg/dl (70-99) H 06/22/24 03:18
Troponins
06/21/24 06/21/24 06/22/24
17:02 21:54 03:18
Troponin I 3.980 H* 4.910 H* 6.990 H* D
Vital Signs and I&O:
Vital Signs
Temp Pulse Resp BP Pulse Ox
97.8 F 124 20 71/61 97
06/22/24 07:21 06/22/24 08:21 06/22/24 07:21 06/22/24 08:21 06/22/24 08:21
Vital Signs
Temp Pulse Resp BP Pulse Ox
97.8 F 124 20 71/61 97
06/22/24 07:21 06/22/24 08:21 06/22/24 07:21 06/22/24 08:21 03/14/25 08:21
Intake & Output
06/20/24 06/21/24 06/22/24 06/23/24
06:59 06:59 06:59 06:59
Intake Total 960 / 960 1660 / 1660 560 / 560
Balance 960 / 960 1660 / 1660 560 / 560
Physical Exam
Physical Exam
Gen: NAD, AA
HEENT: NC/AT, sclera anicteric
Neck: No JVD
CV: RRR, NL s1/s2, no M/R/G
Lungs: No increased WOB on 2L O2
Abd: S/ND
Ext: No LE edema
Skin: Warm, dry
Neuro: Non-focal
--- NOTE | 2024-06-22 09:24 | W.PN.PUL.V3 ---
Today's Communication / Plan
-
Antibiotics
Oxygen as needed
Wean off pressors as tolerated
Steroids if lupus flare suspected
Assessment
-
68-year-old female with a history of SLE, fibromyalgia, interstitial lung disease Sweet syndrome was recently hospitalized with pneumonia and returns with fevers, UTI, chest congestion and noted to have recurrent pneumonia-pulmonary consulted for
recurrent pneumonia 06/21/2024.
Recurrent pneumonia
Aspiration risk
Chronic immunosuppression-on mycophenolate
Interstitial lung disease
SLE with possible flare-CRP 253, ESR 136
Sweet syndrome
Thrombocytopenia
Transaminitis
Uqphhi-wdmmezmbcf-lqdcvrwzxh 8.3
Leukocytosis
Hyperglycemia
Conditions present prior to admission:
SLE-on mycophenolate.
Fibromyalgia.
Hypothyroid.
ILD previously on oxygen for 15 years and weaned once on immunosuppressives-followed by Dr. Gracia-has not followed up for many years-now has an appointment with Dr. Ramirez
Restrictive lung disease and bronchiectasis-PFT 2008 TLC 29%
History of nephritis during childhood age 16
Migraines
Sweet syndrome.
Cholecystectomy.
SBO.
Obesity-BMI 35
Contrast allergy
Chronic pain/narcotic dependence
Implantation/subsequent removal of intrathecal pain pump. HODAN/bilingual salpingo-oophorectomy. Knee replacement. Tonsillectomy
Plan
Mild respiratory decompensation possibly related to recurrent pneumonia, however, radiographs show improvement and signs and symptoms may be related to lupus flare
Supplemental oxygen as needed
Aspiration precautions
Speech therapy following-correspondence reviewed-regular diet with thin liquids
Nebulizers
Mucolytic's
Mucus clearing devices
Cultures reviewed
Blood cultures negative
Urine culture negative
Influenza negative
Unable to produce sputum
Empiric antibiotics-Zosyn initiated-now levofloxacin per ID
Infectious disease following-correspondence reviewed
Norepinephrine as needed for marginal blood pressure
Possible lupus flare with significantly elevated CRP as well as ESR
Outpatient medication mycophenolate
Primary service spoke to seo assistant-consider pulse steroids if not improving
Infectious disease would like to hold off on steroids for the moment
Monitor liver functions
Monitor hemoglobin
Transfuse if needed
Monitor blood sugar
Insulin supplementation as needed
DVT prophylaxis recommended
Nutrition with aspiration precautions
Early mobilization/physical therapy
Reviewed with nursing as well as son at the bedside
Patient has appointment with Dr. Ramirez 06/26/2024 at 11:30 AM
Diagnostic data:
Chest X-Ray: 05/30/24- Slight interval increase in opacification of the right lower lung, and this likely represents pneumonia. Airspace opacity within the left lower lung, compatible with pneumonia and/or atelectasis. Evidence for a small left
pleural effusion, stable.
Chest x-ray 06/02/2024-moderate bibasilar pneumonia improved on the right, progressed on the left
Chest x-ray 06/19/2024-improvement in bilateral lower lobe pneumonia
CT Scan: CHEST 05/30/24- Limited by motion degradation, as described. Pulmonary artery assessment in the lower lobes beyond the pulmonary arterial lobar segments is nondiagnostic. Otherwise, no pulmonary embolism is identified. Bilateral multifocal
pneumonia. The examination was performed after-hours on an emergency basis, with initial preliminary interpretation provided by [facility].
CT chest 06/20/2024-moderate left lower lobe pneumonia decreased since 05/30/2024 and decrease in right middle lobe pneumonia as well as bibasilar subsegmental atelectasis and small amount of intraluminal thrombosis in the descending thoracic aorta
and severe discogenic degenerative disc disease C6/C7
Echo: 08/13/23- Normal left ventricular size, wall thickness and systolic function. No regional wall motion abnormalities are seen. LV ejection fraction is 60-65% by Poe's method of discs. Normal diastolic function. Normal right ventricular size
and function. Mitral valve opens normally. No mitral stenosis. Trace mitral regurgitation. Thickened trileaflet aortic valve with normal leaflet excursion. Aortic valve sclerosis. No aortic stenosis. No aortic regurgitation is seen. Tricuspid valve
opens normally. Mild tricuspid regurgitation. Estimated pulmonary artery pressure of 25-30 mmHg. Assuming a right atrial pressure of 3 mmHg.Compared to prior study 02/14/2018 aortic valve sclerosis is noted.
PFT's: 2008- FVC is 0.75 or 25%, FEV1 is 0.59 or 24%, Ratio of 78, FEF 25-75 is 0.56 or 23%. There is a 77% improvement in the FEF 25-75 following bronchodilator.
TLC is 1.29 or 29%, Diffusing capacity is 4.85 or 22% -- Severe mixed Obstructive and Restrictive Lung Disease with severe gas exchange defect.
Subjective Data
-
Date of Service:
Date of Service: June 22, 2024
Chief Complaint: Pulmonary Follow Up and Dyspnea Follow Up
Subjective:
Denies any worsening shortness of breath, chest pain, some nausea this morning
Review of Systems
General: Other (Per HPI)
Objective Data
Data Reviewed
Vital Signs / I&O:
Vital Signs
Temp Pulse Resp BP Pulse Ox
97.8 F 124 20 71/61 97
06/22/24 07:21 06/22/24 08:21 06/22/24 07:21 06/22/24 08:21 06/22/24 08:21
Intake and Output
06/21/24 06/22/24 06/23/24
06:59 06:59 06:59
Intake Total 1660 / 1660 560 / 560
Balance 1660 / 1660 560 / 560
SaO2: 97
Nasal Cannula flow liters per minute: 2
Physical Exam
General: Respiratory Distress (n) and Comfortable
HEENT: Normocephalic, Anicteric and Moist Mucous Membranes
Cardiovascular: Regular Rhythm
Respiratory: Wheeze (n), Crackles (Basilar), Rhonchi (n), Non-Labored Respirations, Accessory Resp Muscle Use (n) and Stridor
GI: Soft, Non Distended and Non Tender
Neurology: Awake, Alert and No Motor Deficits
Skin: Warm, Good Color, Cyanosis (n), Jaundice (n) and Rash (n)
Labs/Micro/Reports
Lab Data
06/22/24 03:18
06/22/24 03:18
Laboratory Results
06/21/24
18:00
APTT Cancelled
Microbiology
06/19/24 11:45 Blood/Venous Blood Culture - Preliminary
No Growth in 48 hours- Final report to follow
06/19/24 11:07 Blood/Venous Blood Culture - Preliminary
No Growth in 48 hours- Final report to follow
06/19/24 10:50 Urine Urine Culture - Final
No Significant Growth
06/19/24 09:38 Nasal Swab Influenza Types A & B (DARLEEN) - Final
Negative for Influenza A & B, NAAT
Negative results must be combined with clinical observations
and patient history.
Nucleic Acid Amplification test (NAAT)performed on the
[employer] platform.
[2024-06-22] MEDS: LEVOPHED 250 IV (09:25)
[2024-06-22] MEDS: ROXICODONE 10 MG PO ×4 (09:25→21:55)
--- NOTE | 2024-06-22 09:54 | W.PN.HOSP.TC ---
Today's Communication/Plan
-
Antibiotics. Pressors. ICU care
Assessment / Plan
Assessment / Plan
Physical exam:
General: Acutely ill
HEENT: Normocephalic, Atraumatic and dry mucous Membranes, oral ulcers present
Respiratory: Coarse rhonchi's in the bases; Negative Wheezes, Rales
Cardiac: Regular Rhythm and S1/S2
GI: Soft, Nontender and Nondistended
Musculoskeletal: No Clubbing, No Cyanosis and No Edema
Neuro: Awake, Alert and Oriented, no neurological deficits, generalized weakness
Psych: Calm
A/P:
Sepsis, probable septic shock:
With SIRS, leukocytosis, hypotension, elevated lactic acid, elevated procalcitonin, will treat as sepsis. Wether multifocal pneumonia as the source or not it is not very clear
On oral Levaquin per ID--> will be switched to IV Zosyn
On IV fluid
Pressors with Levophed to keep MAP over 65
Check MRSA
Check sputum culture
Reviewed chest x-rays and CT scans of the chest--> ILD and interval decrease of pneumonia and descending thoracic aorta thrombus.
Repeat blood cultures x 2 today
Initial blood cultures negative
Influenza and COVID-19 negative
Procalcitonin elevated
Repeat lactic acid
Discussed with family at bedside today
WBC 24.7 today
Transfer to ICU
Elevated troponin with chest pain:
Cardiology consulted appreciated
Per cardiology suspected nonischemic myocardial injury in the setting of sepsis or lupus flare or aortic thrombus
She was going to be initiated on heparin drip but felt not necessary and in terms of antiplatelet she is allergic to aspirin
Cardiac monitoring
Trend troponin
Plan for echocardiogram
SLE:
Suspicious for lupus flare but not entirely clear
ID recommends to hold on steroid which it is reasonable
Discussed with rheumatology over the phone yesterday (Dr. Isak Brooks) and if indeed this is what we suspect then we can do pulsed doses of steroid such as methylprednisolone 200 mg for 2 to 3 days and restart CellCept 1000 mg 3 times daily
for 6 g daily. On the other hand, we would not start until we are sure there is no active infection.
Check CRP and sed rate--> CRP 253, sed rate 136
TSH 0.29 and free T4 1.69
CPK 77
C3-C4 complements pending
Elevated LFTs:
Follow-up trend
Thrombocytopenia:
Hematology oncology on consult
Platelet count 48 today
I have patient sign consent for blood transfusion in case needed if platelets drop below certain threshold or active bleeding
If worsening or any signs of bleed might require transfusion but monitor for now
Anemia:
Hemoglobin 8 today
I have patient sign consent for blood transfusion today in case hemoglobin drops below threshold or active bleeding
Continue to monitor closely
If any signs of bleeding or less than 7 then would consider blood transfusion
Hypothyroidism:
TSH 0.29 and free T4 1.69-->Continue thyroid replacement but will decrease doses of 75 mcg to 50 mcg p.o. daily
Chronic pain with narcotic dependence:
Continue pain control
DVT prophylaxis:
SCDs
No pharmacological prophylaxis due to thrombocytopenia
CODE STATUS:
Full code
Total Critical Care Time__55___ minutes. I was immediately available to the patient and staff. I personally examined, reviewed labs, diagnostic images/reports, interpretations, treatment plans, discussed patient care with other providers and
family or caregivers (if patient is unable to make decisions), entered orders as appropriate and documented the medical record.
Anticipated Discharge: > 48 hours
Subjective/Interval History
-
Date of Service: June 22, 2024
Patient is having chest discomfort shortness of breath nausea. Hypotensive this morning. Looks frail and toxic appearance.
Objective Data
-
Labs:
Laboratory Results
06/22/24
03:18
WBC 24.7 H
Hgb 8.0 L
Hct 23.3 L
Plt Count 48 L
Sodium 135
Potassium 4.0
Chloride 102
Carbon Dioxide 20 L
BUN 14
Creatinine 0.8
Glucose 131 H
Calcium 8.8
Total Bilirubin 2.4 H
AST 94 H
ALT 69 H
Alkaline Phosphatase 576 H
Vital Signs:
Vital Signs
Temp Pulse Resp BP Pulse Ox
97.8 F 130 20 84/62 97
06/22/24 07:21 06/22/24 09:30 06/22/24 07:21 06/22/24 09:30 06/22/24 09:30
I&O
06/21/24 06/22/24 06/23/24
06:59 06:59 06:59
Intake Total 1660 / 1660 560 / 560
Balance 1660 / 1660 560 / 560
--- NOTE | 2024-06-22 09:56 | W.PN.ONC2 ---
Today's Communication / Plan
-
.
Impression
Impression
68 year old female p/w fever x4d
SLE
Thrombocytopenia
Anemia
leukocytosis
PNA
elevated troponin
aortic thrombus
ILD, restrictive lung dz
Plan
Plan
#SLE
- Has history of SLE, tx in the past with Mycophenolate, however stopped during last admission and has been off it for several weeks. Given elevated ESR/CRP/urine hyaline casts and the 12hr half life of mycophenolate, it is more likely that this
anemia/thrombocytopenia is the consequence of an acute Lupus flare, as opposed to a primary hematologic disorder or suppression from mycophenolate.
- Agree with pulse dose steroids if indicated to treat Lupus flare. Will defer further treatment of SLE to primary team/Batch Operator
#Thrombocytopenia/Anemia
- As above, will suspect Lupus Flare as primary cause
- C/t observe Hgb/plts and transfuse if needed
-f/u fibrinogen
#elevated troponin/mild amount of intraluminal thrombus in the mid descending thoracic aorta measuring
-on heparin gtt
-cardiology following
#PNA abx per ID, sepsis per primary service
Subjective/Objective
Subjective
Tmax 102.8F, hypotensive on pressors, tachycardia, 2L NC
wbc 24.7, Hgb 8, platelet count 48
denies overt bleeding
constipation
Vital Signs:
Vital Signs
Temp Pulse Resp BP Pulse Ox
97.8 F 130 20 84/62 97
06/22/24 07:21 06/22/24 09:30 06/22/24 07:21 06/22/24 09:30 06/22/24 09:30
Lab Results:
Laboratory Data
WBC 24.7 10^3/uL (4.8-10.8) H 06/22/24 03:18
Hgb 8.0 g/dL (12.0-16.0) L 06/22/24 03:18
Plt Count 48 10^3/uL (130-400) L 06/22/24 03:18
APTT Cancelled 06/21/24 18:00
eGFR > 60.00 06/22/24 03:18
[2024-06-22 10:46] LABS: Fibrinogen 755 MG/DL (199-459)
[2024-06-22 10:47] LABS: PT 17.5 Sec (11.4-14.6)
--- NOTE | 2024-06-22 10:51 | W.PN.ID1 ---
Date of Service
Date of Service: June 22, 2024
Today's Communication
restarted zosyn
screen nares for mrsa, sputum culture
would like to hold off on steroids at this time if feasible
Assessment / Plan
Relapse of Fevers
Multifocal Pneumonia
Immunosuppression: SLE on MMF
ILD
Sweet Syndrome
Thrombocytopenia
Contrast Allergy
- blood cultures x2 in progress no growth to date, repeat today
- obtain sputum if feasible
- MRSA screen of nares
- CT chest with contrast- improving infiltrates
- note she did have hydrocortisone 200 mg on 06/20 as part of pretreatment for CT chest
- prior to arrival mycophenolate on hold
- restart zosyn, stop levofloxacin
- would plan a longer course of treatment for what appears to be partially treated pneumonia in the setting of immunosuppression; would like to hold further steroids and observe clinically at this time
- follow clinically
Chief Complaint
-: Fever and Pneumonia
Subjective / Review of Systems
febrile via the core route
now on norepi at 1 mcg/min
had chest pain overnight - seen by cardiology with nonspecific T wave change but no acute injury pattern
reports chest pain is worse with deep inspiration
reports cough is productive with brown sputum
Vital Signs / Physical Exam
Vital Signs
Vital Signs
Temp Pulse Resp BP Pulse Ox
97.8 F 130 20 84/62 97
06/22/24 07:21 06/22/24 09:30 06/22/24 07:21 06/22/24 09:30 06/22/24 09:30
Physical Exam
Constitutional: Chronically Ill
Cardiovascular: Regular Rate and S1/S2; Negative Murmur or Rub
Pulmonary: Clear, Coarse and Non Labored; Negative Symmetric, Wheezes or Rales
Gastrointestinal: Soft, Non Tender, Non Distended and Normal Bowel Sounds
Skin: Warm and Dry; Negative Rash or Jaundice
Objective Data
Lab Data
Lab Results
06/22/24 03:18
06/22/24 03:18
ESR 136 mm/hour (0-20) H 06/21/24 06:55
APTT Cancelled 06/21/24 18:00
Estimated Creat Clear 61 ml/min 06/22/24 03:18
Lactic Acid 2.0 mmol/L (0.7-2.0) 06/22/24 03:21
Total Bilirubin 2.4 mg/dl (0.2-1.3) H 06/22/24 03:18
AST 94 U/L (14-36) H 06/22/24 03:18
ALT 69 U/L (0-35) H 06/22/24 03:18
Alkaline Phosphatase 576 U/L (38-126) H 06/22/24 03:18
C-Reactive Protein 253.10 mg/L (0.0-10.00) H 06/21/24 06:55
Most recent labs reviewed.
note relapse of L shift, increasing leukocytosis
did develop minimal lactic acidosis 06/21 now resolved
increasing alk phos, lfts, t bili
troponinemia
Micro Results:
06/19/24 11:45 Blood Culture - Preliminary
Blood/Venous No Growth in 48 hours- Final report to follow
06/19/24 11:07 Blood Culture - Preliminary
Blood/Venous No Growth in 48 hours- Final report to follow
06/19/24 10:50 Urine Culture - Final
Urine No Significant Growth
06/19/24 09:38 Influenza Types A & B (DARLEEN) - Final
Nasal Swab Negative for Influenza A & B, NAAT
Negative results must be combined with clinical observations
and patient history.
Nucleic Acid Amplification test (NAAT)performed on the
[employer] platform.
--- NOTE | 2024-06-22 11:15 | PTCARENOTE ---
Report given to Liya GERMAN in ICU; Brought Pt up to floor in bed with PCT assist. Transferred to ICU RM#[id number]
--- NOTE | 2024-06-22 11:18 | PTCARENOTE ---
Addendum entered by Liya Solano RN 06/22/24 15:18:
solar thermal technician unable to obtain ECHO d/t elevated HR.
Original Note:
Received pt from IVU as transfer into ICU rm [id number]. Pt. AAOx3, c/o severe chest pain radiating to back; medicated w prn IV morphine- see on monitor. SpO2 95% on 2LNC. Auscultated dim breath sounds throughout w crackles @ bases. Tachypnea w
rates into high 30's; repost BUNN/dyspnea @ rest/orthopnea/shallow breaths. Occ p cough w brown sputum. +BS, abd soft /round/obese. Intermittent nausea. Inc b/b @ x;s. Purewick in place; awaiting void. Febrile 102.1 rectally, recently received
Tylenol per off-going RN. NSS @ 80mL/hr and levo gtt infusing- titrated to keep MAP>65- via L midline. ECHO to bedside @ this time. In contact w Cards, Dr. Treviño, no plan for cath lab nurse @ this time. Pt. and sister updated on plan of care. Call
vang w in reach.
--- NOTE | 2024-06-22 11:25 | W.PN.UPDATE ---
Update Note
Progress Note Update
Patient arrived to the ICU at approximately 11:15 AM today. I saw the patient and she was tachypneic with heart rate 135, saturating 94% on 2 L/min nasal cannula with BP 1166 on Alejandro-Synephrine at 50 mcg/min. She says that she is short of breath
because she has coughing spells and would like something for this. She is not having any chest pain currently, also denies urinary discharge, pain during urination, or chills. She says that her previous lupus flares usually involve mild fevers
with mouth sores, joint pain, neuropathy and blotchy skin across her body and face. The patient's sister, Shoshana, was at bedside and she also assisted with the prior history.
On exam the patient is awake, alert and in mild acute respiratory distress, with a supple neck, and normal cephalic/atraumatic head, with tachycardia, and coarse breath sounds with no wheezing, with a soft/nontender abdomen and +1 lower extremity
edema bilaterally.
-We will continue with antibiotics empirically for now with ID following. Check/trend ESR + CRP given concern for possible inflammatory etiology of her symptoms/fever.
-Continue Alejandro-Synephrine given hypotension with tachycardia while on Levophed; may consider starting vasopressin if continues to require hemodynamic support
-Defer antibiotics to ID
-Low threshold to intubate
-DVT ppx
[2024-06-22] MEDS: ZOSYN 100 IV ×2 (11:59→17:23)
[2024-06-22 12:20] LABS: Lactic Acid 3.8 mmol/L (0.7-2.0)
[2024-06-22] MEDS: NEO-SYNEPHRINE 250 IV (12:58)
[2024-06-22 12:59] LABS: O2 Saturation % 99.4 % (94-98); PCO2 29 mmHg (32-35); PO2 94 mmHg (83-108)
--- NOTE | 2024-06-22 14:18 | PTCARENOTE ---
Dr. Ramirez made aware of tachycardia w rates 130-140's. Further orders received to change levo to aimee- see flow sheet. Pt. HR slightly improved 120-130's post med switch. Dr. Ramirez also made aware of pt.'s increased work of breathing; orders
received to check ABG. ABG drawn and sent to lab by RT. Results relayed to Dr. Ramirez and plan of care remains unchanged. Dr. Treviño made aware troponin peaked; received further orders to cancel trop trend per MD. Call vang remains w in
reach.
[2024-06-22] MEDS: MAG-TAB SR 84 MG PO (14:33)
[2024-06-22 17:21] LABS: Phosphorus 3.9 mg/dl (2.5-4.5)
[2024-06-22] MEDS: TESSALON PERLES 200 MG PO ×2 (17:23→21:55)
[2024-06-22] MEDS: CRESTOR 20 MG PO (17:23)
[2024-06-22 17:56] LABS: Lactic Acid 5.2 mmol/L (0.7-2.0)
[2024-06-22 17:59] LABS: Erythrocyte Sed Rate 115 mm/hour (0-20)
[2024-06-22 18:23] LABS: C-Reactive Protein > 270.00 mg/L (0.0-10.00)
--- NOTE | 2024-06-22 18:34 | PTCARENOTE ---
Lactic remains critical, trending up at 5.2; Dr. Ramirez made aware. Pt. remains tachycardic w HR in 130's and tachypneic w RR in 30's. Pt. unable to break fever, temp currently 101.4, admin PO prn Tylenol- see JUN. Dr. Ramirez aware of
assessment findings.
[2024-06-22 18:48] LABS: Procalcitonin 4.14 ng/ml (0.0-0.25)
--- NOTE | 2024-06-22 19:14 | PTCARENOTE ---
Assumed care of pt. approx 1900.
Tachycardic, hypotensive, febrile 101.5 via core rectal temp.
Diaphoretic, ice packs in place. HR organized in 140s, pt. remains on phenyephrine see flowsheets for details.
Family and pt. updated on plan of care.
[2024-06-22 20:58] LABS: Lactic Acid 5.1 mmol/L (0.7-2.0)
[2024-06-22 23:01] LABS: B.E. -9.9 mmol/L; PCO2 34 mmHg (32-35); PO2 98 mmHg (83-108); pH 7.28 (7.35-7.45)
[2024-06-23] VITALS (30 sets, daily range): BP systolic 39–194; BP diastolic 11–124
--- NOTE | 2024-06-23 00:51 | W.PN.ANESINT ---
Anesthesia Intubation Note
- Intubation Note
Intubation Note:
Diagnosis: Repiratory distress/sepsis/pneumonia
Blade: [place] 4
Tube Size: 8.0 ETT
Depth: 21 cm
Side Taped: right
Drugs Used: propofol 60 mg, Phenylepherine 200 mcgs
Grade View: grade 1
EtCO2 Present: +ETCO2 via stat cap
Atraumatic: yes
Attempts: 1
Insertion Start and Stop Time: 1150- 0030
SaO2 Pre: poor pleth
SaO2 Post: 90's with poor pleth
Glidescope Used: yes
Other Airway Adjustments:
Pre-Oxygenated: ambu ventilation via mask
Portable Chest X-Ray: pending
RSI:
Suctioned: post intubation for thick secretions
Bilateral Breath Sounds Confirmed: yes
Vent Settings: see ICU flow sheet/MAR.
Left in care on ICU/respiratory staff in stable condition.
Settings per ___Attending Physician
--- NOTE | 2024-06-23 01:41 | RESPNOTE ---
ETT advanced to 23 cm at lip, BS bilat and equal, ETT resecured
[2024-06-23] MEDS: OFIRMEV 100 IV (01:42)
[2024-06-23] MEDS: ZOSYN 100 IV ×2 (01:48→05:45)
[2024-06-23] MEDS: DIPRIVAN 100 IV ×2 (01:49→05:49)
[2024-06-23] MEDS: PITRESSIN 100 IV ×2 (01:49→05:49)
[2024-06-23] MEDS: NEO-SYNEPHRINE 250 IV ×2 (01:50→07:54)
[2024-06-23] MEDS: SUBLIMAZE 100 IV (01:50)
[2024-06-23 01:54] LABS: Lactic Acid 8.7 mmol/L (0.7-2.0)
--- NOTE | 2024-06-23 01:56 | PTCARENOTE ---
Pt. became more tachypneic, RR 40-50, decision made to intubate.
Anesthesia bedside. Induced w. 10ml Diprivan.
Vasopressin added due to increasing hypotension.
Remains tachycardic in 150s.
[2024-06-23 01:58] LABS: Hematocrit 24.8 % (37.0-47.0); Hemoglobin 8.2 g/dL (12.0-16.0); Mean Corp Hgb Conc. 33.1 g/dL (33.0-37.0); Mean Corpuscular Hgb 31.8 pg (27.0-31.0); Mean Corpuscular Volume 96.1 fL (81.0-99.0); Mean Platelet Volume 11.1 fL (7.4-10.4); Platelet Count 57 10^3/uL (130-400); Red Blood Cell Count 2.58 10^6/uL (4.20-5.40); Red Cell Dist. Width 17.3 % (11.5-14.5); White Blood Cell Count 28.1 10^3/uL (4.8-10.8)
[2024-06-23 02:00] LABS: AST (SGOT) 116 U/L (14-36); Albumin 3.3 g/dl (3.5-5.0); Alkaline Phosphatase 462 U/L (38-126); Blood Urea Nitrogen 22 mg/dl (7-17); Calcium 7.9 mg/dl (8.4-10.2); Carbon Dioxide 9 mmol/L (22-30); Chloride 105 mmol/L (98-107); Estimated Creatinine Clearance 19 ml/min; Glucose 139 mg/dl (70-99); Magnesium 1.8 mg/dl (1.6-2.3); Sodium 138 mmol/L (135-145); Total Bilirubin 3.3 mg/dl (0.2-1.3); Triglycerides 214 mg/dl (10-149); eGFR 19.26
[2024-06-23 02:04] LABS: Venous Blood Gas B.E. -15.2 mmol/L (-4 to +4); Venous Blood Gas HCO3 11.9 mmol/L (22-27); Venous Blood Gas pCO2 32 mmHg (35-48); Venous Blood Gas pO2 143 mmHg (30-50)
[2024-06-23 02:05] LABS: Venous Blood Gas O2 Therapy 100
[2024-06-23 02:06] LABS: Venous Blood Gas pH 7.18 (7.32-7.43)
[2024-06-23 02:11] LABS: % Basophils 0.3 % (0-2); % Eosinophils 0.1 % (0-6); % Immature Granulocytes 12.8 % (0-0.5); % Lymphocytes 7.6 % (20.5-51.1); % Monocytes 2.5 % (1.7-9.3); % Neutrophils 76.7 % (42.2-75.2); Absolute Basophils 0.1 10^3/uL (0-0.2); Absolute Immature Granulocytes 3.6 10^3/uL (0-0.05); Absolute Lymphocytes 2.1 10^3/uL (1.2-3.4); Absolute Monocytes 0.7 10^3/uL (0.1-0.6); Absolute Neutrophils 21.5 10^3/uL (1.4-6.5); Nucleated Red Blood Cells % 0.3 %
--- NOTE | 2024-06-23 02:32 | W.PN.UPDATE ---
Update Note
Progress Note Update
2230 Notified of patient�s respiratory rate in the 40s and having chest pain. �EKG done and evaluated. �Cardiology aware and no change in plan of care. �On assessment, patient in acute respiratory distress and abdominal breathing. ABG done.� High
concern for respiratory failure, discussed with family the possible need for intubation. They wanted to discussion amongst themselves before deciding to intubate. Trial bipap and patient was unable to tolerate. � ��
5304 Patients becoming more fatigued. �Patient now asking to be ventilated due to fatigue. Decision made to intubate patient. Patient intubated by FLOOR INSTALLATION MECHANIC without any issues.�
[2024-06-23] MEDS: SODIUM BICARBONATE 100 MEQ IV (03:00)
[2024-06-23] MEDS: SODIUM BICARBONATE 1150 MEQ IV (03:00)
[2024-06-23 03:07] LABS: ALT (SGPT) 66 U/L (0-35)
--- NOTE | 2024-06-23 03:12 | PTCARENOTE ---
Labs reviewed w. MIGUELANGEL.
0.9 stopped --> Bicarb gtt + amp added.
--- NOTE | 2024-06-23 03:39 | PTCARENOTE ---
Pt. remains hypotensive, Now triple pressed --> norepi added.
Low sp02, RT called fi02 increased to 100 percent.
--- NOTE | 2024-06-23 04:00 | PTCARENOTE ---
Pt. pleth reading low-mid 80s of note pleth is slightly rhythmic w. HR. ICU MIGUELANGEL notified STAT CXR ordered.
--- NOTE | 2024-06-23 04:55 | PTCARENOTE ---
Unable to obtain Arterial pressure monitoring through multiple providers. MAXED triple pressed.
ICU MIGUELANGEL notified/bedside.
[2024-06-23] MEDS: SYNTHROID 50 MCG PO (05:45)
[2024-06-23] MEDS: LEVOPHED 250 IV ×3 (05:49→09:06)
--- NOTE | 2024-06-23 05:57 | PTCARENOTE ---
Multiple attempts for labs, unsuccessful. sp02 pleth unable to keep/maintain adequate waveform despite numerous probes. NIBP for vasopressor titrations due to multiple failed provider attempts for arterial pressure access.
[2024-06-23] MEDS: ROXICODONE PO (07:15)
[2024-06-23] MEDS: TESSALON PERLES PO (07:16)
[2024-06-23] MEDS: ESTRACE PO (07:16)
--- NOTE | 2024-06-23 07:26 | W.PN.ID1 ---
Date of Service
Date of Service: June 23, 2024
Today's Communication
when family have gathered can stop antibiotics
ID service will no longer actively follow this patient please recall for further questions
Assessment / Plan
Relapse of Fevers
Multifocal Pneumonia
Immunosuppression: SLE recently on MMF
ILD
Sweet Syndrome
Thrombocytopenia
Contrast Allergy
- PEA arrest
- family have elected to withdraw care
- when family have gathered can stop antibiotics
ID service will no longer actively follow this patient please recall for further questions
Chief Complaint
-: Fever and Pneumonia
Subjective / Review of Systems
febrile overnight via core ts to 103.0,
BP unstable - now on 3x pressors - I was not notified
staff was unable to get heather access
chest pain and tachypnea overnight, intubated
cardiac arrest at about 8 AM this morning
I was on the unit when code called, reivewed chart expanded coverage to vanc/meropenem/micafungin
shortly thereafter family decided to withdraw care
Vital Signs / Physical Exam
Vital Signs
Vital Signs
Temp Pulse Resp BP Pulse Ox
101.2 F H 137 28 101/56 85
06/23/24 07:21 06/23/24 04:00 06/23/24 04:00 06/23/24 03:50 06/23/24 04:05
Physical Exam
Constitutional: Acutely Ill and Chronically Ill
Pulmonary: Symmetric
Gastrointestinal: Non Distended
Skin: Negative Rash or Jaundice
Neurological: Negative Awake
Objective Data
Lab Data
Lab Results
06/23/24 01:18
ESR 115 mm/hour (0-20) H 06/22/24 17:31
PT 17.5 Sec (11.4-14.6) H 06/22/24 10:28
INR 1.40 03/14/25 10:28
APTT 38.0 Sec (23.4-35.0) H 06/22/24 10:28
Estimated Creat Clear 19 ml/min 06/23/24 01:18
Lactic Acid 8.7 mmol/L (0.7-2.0) H* 06/23/24 01:18
Total Bilirubin 3.3 mg/dl (0.2-1.3) H 06/23/24 01:18
AST 116 U/L (14-36) H 06/23/24 01:18
ALT 66 U/L (0-35) H 06/23/24 01:18
Alkaline Phosphatase 462 U/L (38-126) H 06/23/24 01:18
C-Reactive Protein > 270.00 mg/L (0.0-10.00) H 06/22/24 17:31
Most recent labs reviewed.
Micro Results:
06/22/24 16:55 Respiratory Culture - Pending
Sputum Gram Stain - Pending
06/22/24 11:54 Nasal Screen MRSA (PCR) - Final
Nose MRSA not detected - performed by PCR methodology.
06/22/24 11:54 Blood Culture - Pending
Blood/Venous
06/22/24 11:54 Blood Culture - Pending
Blood/Venous
06/19/24 11:45 Blood Culture - Preliminary
Blood/Venous No Growth in 72 hours- Final report to follow
06/19/24 11:07 Blood Culture - Preliminary
Blood/Venous No Growth in 72 hours- Final report to follow
06/19/24 10:50 Urine Culture - Final
Urine No Significant Growth
06/19/24 09:38 Influenza Types A & B (DARLEEN) - Final
Nasal Swab Negative for Influenza A & B, NAAT
Negative results must be combined with clinical observations
and patient history.
Nucleic Acid Amplification test (NAAT)performed on the
[employer] platform.
[2024-06-23] MEDS: SUBLIMAZE 50 MCG IV (07:38)
[2024-06-23] MEDS: PROTONIX IV 40 MG IV (07:40)
[2024-06-23] MEDS: TYLENOL 650 MG PO (07:40)
--- NOTE | 2024-06-23 08:10 | W.PN.UPDATE ---
Addendum entered and electronically signed by Darlyn Flood MD 06/23/24 11:02:
I saw and examined the patient.
The Plate Mounter's note was reviewed and I agree with the note.
Comment: Patient initially presented critically ill with sepsis in the setting of immunosuppression, vent dependent respiratory failure, positive troponins, pancytopenia with significant thrombocytopenia and aspirin allergy. I was at the bedside
after code called and in progress. Through records reviewed patient critically ill throughout the night with increased lactic acid and decreased bicarbonate requiring emergent intubation after previously considering not being intubated. On arrival
CPR in progress. Monitor with suggestion of ST elevation. High-quality chest compressions noted however unable to increase during the code end-tidal CO2 (lung sounds even). PEA throughout and then return of distant dopplerable pulse with
extremely low blood pressure as end-stage rhythm/vital signs. During the code I spoke at length with patient's sons who were outside of the room and other family members. They felt that she would not want this and would want to go 'naturally '.
At the time of our conversation there was no pulse or blood pressure and she was being bagged for ventilation. CPR was in progress. They made the decision to make her comfortable. We then heard a dopplerable pulse and I did explain this to them
however blood pressure was very low and likely would not sustain life. They understood and would continue with comfort measures.
During the code she did receive bicarbonate, epinephrine as noted. She was receiving phenylephrine and Levophed
Original Note:
Update Note
Progress Note Update
CTS urgently for code 9. CPR in progress upon arrival. Overnight notes reviewed and patient with increased SOB early this morning. There was concern for resp failure and intubation recommended and initially family deferred to discuss amongst
themselves, but then patient requested intubation and so was intubated. Repeat labs at that time showed lactic acid level trending up to 8.7. Bicarb gtt added. ICU staff unable to draw labs, no blood return. Levo running at 20, Vasopressin at 0.04
and Alejandro at 200 at that time. Then coded. CPR started. No shocks. Epi x3 and Bicarb x1. Family updated and they are considering withdrawal. 31 min face to face and talking with family.
--- NOTE | 2024-06-23 08:20 | W.PN.INTV ---
Today's Communication / Plan
Recommendations
Continue mechanical ventilation
Continue vasopressors
Start IV hydrocortisone to help buy some time until additional family numbers arrive
Goal MAP >60�65 --> unable to get a blood pressure or an accurate pulse oximetry at this time given significantly low blood BP
Emotional support provided to the family
Shaker Plate Operator already came to bedside
Very poor prognosis
Assessment
-
68-year-old female with a history of SLE, fibromyalgia, interstitial lung disease Sweet syndrome was recently hospitalized with pneumonia and returns with fevers, UTI, chest congestion and noted to have recurrent pneumonia-pulmonary consulted for
recurrent pneumonia 06/21/2024.
In-hospital cardiac arrest likely due to aspiration in the setting of tachycardia
Acute respiratory failure with hypoxia now on mechanical ventilation
Recurrent pneumonia
Aspiration risk
Chronic immunosuppression-on mycophenolate
Interstitial lung disease
SLE with possible flare-CRP 253, ESR 136
Sweet syndrome
Thrombocytopenia
Transaminitis
Nlifhk-dzzznceidg-qzkdlpxhgb 8.3
Leukocytosis
Hyperglycemia
Conditions present prior to admission:
SLE-on mycophenolate.
Fibromyalgia.
Hypothyroid.
ILD previously on oxygen for 15 years and weaned once on immunosuppressives-followed by Dr. Gracia-has not followed up for many years-now has an appointment with Dr. aRmirez
Restrictive lung disease and bronchiectasis-PFT 2008 TLC 29%
History of nephritis during childhood age 16
Migraines
Sweet syndrome.
Cholecystectomy.
SBO.
Obesity-BMI 35
Contrast allergy
Chronic pain/narcotic dependence
Implantation/subsequent removal of intrathecal pain pump. HODAN/bilingual salpingo-oophorectomy. Knee replacement. Tonsillectomy
Plan
Patient decompensated overnight and is now intubated and maxed on pressors. Additional family is coming to the hospital and they would like to withdraw care at that time.
Emotional support was provided
Patient is now DNR/DNI
Shaker Plate Operator already came to the bedside
Previous respiratory decompensation possibly related to recurrent pneumonia, however, radiographs show improvement and signs and symptoms may be related to lupus flare
Cultures reviewed
Blood cultures negative
Urine culture negative
Influenza negative
Unable to produce sputum
Empiric antibiotics-Zosyn initiated, levofloxacin DC'd per ID
Infectious disease following-correspondence reviewed
Possible lupus flare with significantly elevated CRP as well as ESR
Outpatient medication mycophenolate
Primary service spoke to quality assurance monitor-consider pulse steroids if not improving --> the patient is pending withdrawal care this is a moot point
Infectious disease would like to hold off on steroids if possible
Reviewed with nursing as well as multiple family at bedside
Patient is critically ill. Continue ICU level care until we withdraw care later this morning. She is DNR/DNI - very poor prognosis.
Critical care statement: A total of 37 minutes of critical care time was provided for this patient today. This includes management of unstable vital signs, evaluation of the patient at bedside, reviewing the patient's pertinent medical records
including radiographs, microbiology, laboratory evaluations, and discussion with primary team, consultants, pharmacy, nutrition, physical therapy, case management, charge nurse, critical care nursing, and respiratory therapy.
Diagnostic data:
Chest X-Ray: 05/30/24- Slight interval increase in opacification of the right lower lung, and this likely represents pneumonia. Airspace opacity within the left lower lung, compatible with pneumonia and/or atelectasis. Evidence for a small left
pleural effusion, stable.
Chest x-ray 06/02/2024-moderate bibasilar pneumonia improved on the right, progressed on the left
Chest x-ray 06/19/2024-improvement in bilateral lower lobe pneumonia
CT Scan: CHEST 05/30/24- Limited by motion degradation, as described. Pulmonary artery assessment in the lower lobes beyond the pulmonary arterial lobar segments is nondiagnostic. Otherwise, no pulmonary embolism is identified. Bilateral multifocal
pneumonia. The examination was performed after-hours on an emergency basis, with initial preliminary interpretation provided by [facility].
CT chest 06/20/2024-moderate left lower lobe pneumonia decreased since 05/30/2024 and decrease in right middle lobe pneumonia as well as bibasilar subsegmental atelectasis and small amount of intraluminal thrombosis in the descending thoracic aorta
and severe discogenic degenerative disc disease C6/C7
Echo: 08/13/23- Normal left ventricular size, wall thickness and systolic function. No regional wall motion abnormalities are seen. LV ejection fraction is 60-65% by Poe's method of discs. Normal diastolic function. Normal right ventricular size
and function. Mitral valve opens normally. No mitral stenosis. Trace mitral regurgitation. Thickened trileaflet aortic valve with normal leaflet excursion. Aortic valve sclerosis. No aortic stenosis. No aortic regurgitation is seen. Tricuspid valve
opens normally. Mild tricuspid regurgitation. Estimated pulmonary artery pressure of 25-30 mmHg. Assuming a right atrial pressure of 3 mmHg.Compared to prior study 02/14/2018 aortic valve sclerosis is noted.
PFT's: 2008- FVC is 0.75 or 25%, FEV1 is 0.59 or 24%, Ratio of 78, FEF 25-75 is 0.56 or 23%. There is a 77% improvement in the FEF 25-75 following bronchodilator.
TLC is 1.29 or 29%, Diffusing capacity is 4.85 or 22% -- Severe mixed Obstructive and Restrictive Lung Disease with severe gas exchange defect.
Subjective Dataa
Subjective Data
Date of Service:
Date of Service: June 23, 2024
Chief Complaint: Mat Repairer Follow Up
Subjective:
Patient was intubated overnight. She cardiac arrest this morning. Family at bedside and they do not want escalation of care. Patient maxed on Levophed and Alejandro-Synephrine drips as well as vasopressin at 0.04 units/min. Additional family members
coming in and they plan to withdraw care. They wish to make her DNR/DNI in the meantime.
Review of Systems
General: Unobtainable - Pat Unresp
Objective Data
Data Reviewed
Vital Signs / I&O / Oxygen:
Vital Signs
Temp Pulse Resp BP Pulse Ox
101.2 F H 189 23 49/19 71
06/23/24 07:21 06/23/24 08:17 06/23/24 08:17 06/23/24 08:10 06/23/24 09:04
Intake and Output
06/22/24 06/23/24 06/24/24
06:59 06:59 06:59
Intake Total 560 / 560 2234.0 / 2476.9 488.3 / 488.3
Output Total 230 / 230 0 / 0
Balance 560 / 560 2004.0 / 2246.9 488.3 / 488.3
SaO2 [A/C] 86
SaO2 71
Nasal Cannula flow liters per 2
minute
Physical Exam
General: Respiratory Distress (negative) and Chills (negative)
HEENT: Normocephalic and Anicteric
Cardiovascular: Peripheral Edema (+1 lower extremity edema bilaterally) and Other (Tachycardic)
Respiratory: Wheeze (negative), Crackles (Bilateral), Rhonchi (Bilateral), Non-Labored Respirations, ET Tube and Other (Mechanical breath sounds heard bilaterally)
GI: Soft, Non Distended, Non Tender and Normal Bowel Sounds
Neurology: Tremors (negative) and Unresponsive
Skin: Warm, Dry and Jaundice (negative)
Labs/Micro/Reports
Lab Data
06/23/24 01:18
Laboratory Results
06/22/24 06/22/24 06/22/24
10:28 12:44 22:56
PT 17.5 H
INR 1.40
APTT 38.0 H
pH 7.40 7.28 L
pCO2 29 L 34
pO2 94 98
HCO3 18.0 L 16.0 L
O2 Delivery Level
Microbiology
06/22/24 11:54 Nose Nasal Screen MRSA (PCR) - Final
MRSA not detected - performed by PCR methodology.
06/19/24 11:45 Blood/Venous Blood Culture - Preliminary
No Growth in 72 hours- Final report to follow
06/19/24 11:07 Blood/Venous Blood Culture - Preliminary
No Growth in 72 hours- Final report to follow
06/19/24 10:50 Urine Urine Culture - Final
No Significant Growth
--- NOTE | 2024-06-23 08:49 | PTCARENOTE ---
Assumed care of pt at 0700. Pt very pale and mottled. No cough or gag noted. Pupils unequal L>R and L unreactive. No corneal reflex. Maxed on Neosynephrine, vaso on, Levo 22mcg/min. HCO3 gtt infusing. Propofol and fent gtt infusing. Gave 50mcg
fentanyl bolus due to vent dyssynchrony. RR 35-40. Febrile at 101.1, tylenol given via OGT. Lungs with insp wheezing and course rhonchi throughout. Unable to obtain NIBP, ongoing problem throughout overnight shift continuing.
--- NOTE | 2024-06-23 09:18 | PTCARENOTE ---
Code called at 0804 after pt spontaneously todd'd to 20s and lost pulses. Pt coded until 0815 when team detected weak pulses and family requesting ACLS to stop. Vasopressors maintained at max and HR 150-180s. See code record. No BP could be
obtained. Awaiting family to arrive to change to comfort care.
--- NOTE | 2024-06-23 09:22 | PTCARENOTE ---
Screening Unit Registered Nurse to bedside to confirm family's wishes. Pt made DNR.
--- NOTE | 2024-06-23 09:23 | W.PN.UPDATE ---
Update Note
Progress Note Update
This AM pt suffered a cardiac arrest. Post-arrest BP severely low on max dose pressors. Family wants to withdraw care after additional family members arrive to the hospital. Will give hydrocortisone in meantime to help buy some time. Once all
family here we will terminally extubate. RN made aware of plan. All questions were answered to the family. Emotional support provided. Broadcast News Producer already came to speak with the family as well.
--- NOTE | 2024-06-23 09:55 | PTCARENOTE ---
Bradycardia noted that evolved to asystole with family at bedside. vasopressors and vent continued until asystole. Dr. Pettit to bedside to pronounce .
--- NOTE | 2024-06-23 09:58 | W.PN.DEATH ---
Pronouncement of
-
Called to see patient to pronounce.
No spontaneous heart tones or respirations noted.
Patient not responsive to verbal stimuli.
Patient is pronounced .
Time of : 09:48
Date of : 06/23/24
Family Notified: Yes
--- NOTE | 2024-06-23 09:59 | W.DCSUMMARY ---
Discharge Summary
Discharge Data
Date of Admission: 06/19/24
Date of Discharge: 06/23/24
-
Pending Results: No
Hospital Course
Patient is 68 years old female with history of SLE, fibromyalgia, interstitial lung disease, Sweet syndrome, recent hospitalization for pneumonia, came into the hospital with recurrent fevers. Patient was started on broad-spectrum IV antibiotics.
ID and pulmonary were consulted. She also had anemia and thrombocytopenia for which hematology was consulted. I reached out to rheumatology over the phone. Patient had equivocal signs of source of infection but she was kept on antibiotics for
possible recurrent pneumonia in the setting of immunocompromised state. Patient cultures remained negative. Her CRP and sed rate elevated. Her renal function was normal. We were hesitant on pulsed doses of steroid given her concern for active
infection. Course complicated with elevated troponin and chest pain and cardiology consulted. Unfortunately, her clinical course deteriorated and she went into septic shock and she was intubated and kept on pressors. Patient coded today on
06/23/2024; cardiology ran the code but patient had no ROSC. She was pronounced today 06/23/2024 at 9:48 AM. Cardiology and I discussed with family at bedside. August her soul rest in peace.
Discharge duration: 45 minutes
Discharge Plan
-
Patient Disposition:
Date/Time
Date/Time: 06/23/24 09:48
Discharge Date and Time
Discharge Date/Time: 06/23/24 12:21
Print Language: NEPALESE
--- NOTE | 2024-06-23 10:14 | CHAP ---
Responded to overhead code. Provided emotional and spiritual support to family through presence, dialogue, and prayer, commending Cher to God and asking peace for all. The family is strong in juana, hope and love. Prayer blanket also provided,
along with assurance of our on-going availability.
== END 2024-06-23 12:21 | disposition expired | DRG 871 ==
LOC: ICU 12:54
PROVIDERS: Clinical Nurse Specialist Family Health; Family Medicine; Internal Medicine Critical Care Medicine; Nurse Practitioner Gerontology; Nurse Practitioner Primary Care; ADMITTING PHYSICIAN Hospitalist; ATTENDING PHYSICIAN Hospitalist; CONSULT PHYSICIAN Internal Medicine Cardiovascular Disease; CONSULT PHYSICIAN Internal Medicine Critical Care Medicine; CONSULT PHYSICIAN Internal Medicine Hematology & Oncology; CONSULT PHYSICIAN Student in an Organized Health Care Education/Training Program; EMERGENCY PHYSICIAN Emergency Medicine; FAMILY PHYSICIAN Nurse Practitioner Adult Health
PROC: 0BH17EZ Insertion of Endotracheal Airway into Trachea, Via Natural or Artificial Opening (ICD-10-PCS; 2024-06-23)
PROC: 5A1935Z Respiratory Ventilation, Less than 24 Consecutive Hours (ICD-10-PCS; 2024-06-23)
DX: A41.9 Sepsis, unspecified organism (principal); R65.21 Severe sepsis with septic shock; N39.0 Urinary tract infection, site not specified; K56.609 Unspecified intestinal obstruction, unspecified as to partial versus complete obstruction; D84.821 Immunodeficiency due to drugs; D61.818 Other pancytopenia; F11.20 Opioid dependence, uncomplicated; I31.39 Other pericardial effusion (noninflammatory); I5A Non-ischemic myocardial injury (non-traumatic); J84.9 Interstitial pulmonary disease, unspecified; M32.9 Systemic lupus erythematosus, unspecified; L98.2 Febrile neutrophilic dermatosis [Sweet]; E03.9 Hypothyroidism, unspecified; Z66 Do not resuscitate; G89.29 Other chronic pain; M79.7 Fibromyalgia; E66.9 Obesity, unspecified; I46.9 Cardiac arrest, cause unspecified; J98.4 Other disorders of lung; Z87.01 Personal history of pneumonia (recurrent); Z68.35 Body mass index [BMI] 35.0-35.9, adult; Z87.891 Personal history of nicotine dependence; Z88.6 Allergy status to analgesic agent; Z87.892 Personal history of anaphylaxis; Z11.52 Encounter for screening for COVID-19; E78.5 Hyperlipidemia, unspecified; I10 Essential (primary) hypertension; I25.10 Atherosclerotic heart disease of native coronary artery without angina pectoris
CPT/HCPCS: 93308; 71045; 71046; 71260; 80053; 81003; 81015; 82550; 82805; 82962; 83605; 83735; 84100; 84145; 84439; 84443; 84478; 84484; 85025; 85384; 85610; 85652; 85730; 86140; 86160; 87040; 87070; 87086; 87205; 87502; 87641; 87811; 92610; 93005; 93321; 93325; 94002; 94003; 94640; 96374; 97162; 99285; Q9967